=== PATIENT | male | born 1950 | race Caucasian/White ===

== ENCOUNTER 2018-01-04 20:16 | Observation (INO) | payer OTHER, MEDICARE ==
[2018-01-04 20:25] LABS: Glucose,Whole Blood 152 mg/dL (75-99)
[2018-01-04] MEDS ORDERED: SODIUM CHLORIDE 0.9% 500 ML 500 ML IV ONE ×2 (20:25→21:47)
--- NOTE | 2018-01-04 20:30 | ED ---
General Adult HPI - General Stated complaint: NVD,syncope Time Seen by Provider: 01/04/18 20:25 Source: patient, family, EMS, RN notes reviewed, old records reviewed Limitations: altered mental status - History of Present Illness Initial comments: 67-year-old male history of previous TIA, presenting with altered mental status. History is limited secondary to patient's initial presentation. History obtained from the who is at bedside and EMS transported the patient. He had an episode where he had nausea, vomited and became unresponsive. Patient does admit to taking cannabis oral prior to these symptoms. Except time course is not certain. EMS reports stable vitals during transport. Patient was not moving his arms or legs. There is no history of trauma. In addition to the episode of vomiting and was an episode of diarrhea. There was no preceding symptoms according to the patient's . - Related Data Home Medications Medication Instructions Recorded Confirmed Losartan [Cozaar] 12.5 mg PO DAILY 03/18/14 01/04/18 Metoprolol Succinate [Toprol XL] 12.5 mg PO DAILY 03/18/14 01/04/18 Mycophenolate Mofetil [Cellcept] 250 mg PO BID 03/18/14 01/04/18 Nitroglycerin Sl Tabs [Nitrostat] 0.4 mg PO Q5M PRN 03/18/14 01/04/18 Omeprazole [PriLOSEC] 40 mg PO DAILY 03/18/14 01/04/18 Atorvastatin [Lipitor] 80 mg PO HS 01/04/18 01/04/18 Benzoyl Peroxide 5% Lotion 1 applic TOPICAL DAILY 01/04/18 01/04/18 Cholecalciferol [Vitamin D3] 1,000 unit PO DAILY 01/04/18 01/04/18 Clindamycin Topical Soln 1 applic TOPICAL BID 01/04/18 01/04/18 [Cleocin-T Topical Soln] Cyclobenzaprine [Flexeril] 10 mg PO BID PRN 01/04/18 01/04/18 Dipyridamole-Aspirin 200-25 mg 1 cap PO BID 01/04/18 01/04/18 [Aggrenox] FLUoxetine HCL [PROzac] 20 mg PO DAILY 01/04/18 01/04/18 Gabapentin [Neurontin] 100 mg PO TID 01/04/18 01/04/18 Naproxen 500 mg PO BID 01/04/18 01/04/18 amLODIPine [Norvasc] 5 mg PO DAILY 01/04/18 01/04/18 sulfaSALAzine [Azulfidine] 1,000 mg PO BID 01/04/18 01/04/18 Allergies Allergy/AdvReac Type Severity Reaction Status Date / Time No Known Allergies Allergy Verified 01/04/18 21:20 Review of Systems ROS Statement: Those systems with pertinent positive or pertinent negative responses have been documented in the HPI. ROS Other: All systems not noted in ROS Statement are negative. Past Medical History Past Medical History: CVA/TIA, GERD/Reflux, Hyperlipidemia, Hypertension Additional Past Medical History / Comment(s): legally blind, lupus, autoimmune retinopathy, History of Any Multi-Drug Resistant Organisms: None Reported Past Surgical History: Tonsillectomy Additional Past Surgical History / Comment(s): eye and ear surgeries, nephrolithiasis, Past Psychological History: No Psychological Hx Reported Smoking Status: Never smoker Past Alcohol Use History: None Reported Past Drug Use History: Marijuana General Exam General appearance: alert Head exam: Present: atraumatic, normocephalic Eye exam: Present: PERRL (Bilateral pupils are reactive to light, patient has irregularities in the right pupil consistent with previous surgery) ENT exam: Present: mucous membranes moist Neck exam: Present: normal inspection. Absent: tenderness, meningismus Respiratory exam: Present: normal lung sounds bilaterally. Absent: respiratory distress, wheezes Cardiovascular Exam: Present: regular rate, normal rhythm GI/Abdominal exam: Present: soft. Absent: distended, tenderness, guarding Extremities exam: Present: normal inspection, normal capillary refill, other ( Bilateral radial pulses 2+, bilateral DP pulses 2+) Neurological exam: Present: alert, oriented X3 (x3 slow to respond), motor sensory deficit (Patient is not moving either upper extremity. He withdraws to pain in the bilateral lower extremities.) Skin exam: Present: warm, dry, intact, diaphoretic. Absent: cyanosis Course Vital Signs 01/04/18 01/04/18 01/04/18 20:21 21:14 22:05 Temperature 97.6 F Pulse Rate 73 67 71 Respiratory 18 18 19 Rate Blood Pressure 141/89 119/80 134/88 O2 Sat by Pulse 96 97 97 Oximetry 01/04/18 23:00 Temperature Pulse Rate 75 Respiratory 19 Rate Blood Pressure 123/68 O2 Sat by Pulse 98 Oximetry EKG Findings - EKG Comments: EKG Findings:: EKG: Normal sinus rhythm, ventricular rate of 69, LA interval 148 , QRS duration 92, QTC 426, no ST segment elevation, there is T-wave inversion in the inferior leads with no old for comparison. Medical Decision Making - Medical Decision Making 67-year-old male presenting with episode of near syncope. On initial presentation patient is diaphoretic, stable vitals, normal blood sugar. He is unable to move his arms or his legs secondary to profound weakness. Patient is mainly taken to CAT scan, CT is obtained which is negative for U and cranial hemorrhage or mass effect. Patient's symptoms resolve quickly while in the emergency department. He is asymptomatic after approximately 30 minutes to 1 hour. Patient has normal CBC, normal CMP. CT angiography is obtained of the brain which is negative for any acute occlusion or aneurysm. Symptoms concerning for syncope versus neurological,. He will be admitted with both cardiology and neurology on consult. - Lab Data Result diagrams: 01/04/18 20:33 01/04/18 20:33 Lab Results 01/04/18 01/04/18 01/04/18 Range/Units 20:23 20:33 20:33 WBC 9.2 (3.8-10.6) k/uL RBC 4.49 (4.30-5.90) m/uL Hgb 14.1 (13.0-17.5) gm/dL Hct 42.3 (39.0-53.0) % MCV 94.3 (80.0-100.0) fL MCH 31.5 (25.0-35.0) pg MCHC 33.4 (31.0-37.0) g/dL RDW 12.7 (11.5-15.5) % Plt Count 200 (150-450) k/uL Neutrophils % (Manual) 31 % Lymphocytes % (Manual) 65 % Monocytes % (Manual) 2 % Eosinophils % (Manual) 2 % Neutrophils # (Manual) 2.85 (1.3-7.7) k/uL Lymphocytes # (Manual) 5.98 H (1.0-4.8) k/uL Monocytes # (Manual) 0.18 (0-1.0) k/uL Eosinophils # (Manual) 0.18 (0-0.7) k/uL Nucleated RBCs 0 (0-0) /100 WBC Manual Slide Review Performed Large Platelets Present Polychromasia Present PT (9.0-12.0) sec INR (<1.2) APTT (22.0-30.0) sec Sodium (137-145) mmol/L Potassium (3.5-5.1) mmol/L Chloride (98-107) mmol/L Carbon Dioxide (22-30) mmol/L Anion Gap mmol/L BUN (9-20) mg/dL Creatinine (0.66-1.25) mg/dL Est GFR (CKD-EPI)AfAm (>60 ml/min/1.73 sqM) Est GFR (CKD-EPI)NonAf (>60 ml/min/1.73 sqM) Glucose (74-99) mg/dL POC Glucose (mg/dL) 152 H (75-99) mg/dL POC Glu Pizza Chef ID Vilma Manriquez Calcium (8.4-10.2) mg/dL Total Bilirubin (0.2-1.3) mg/dL AST (17-59) U/L ALT (21-72) U/L Alkaline Phosphatase (38-126) U/L Total Creatine Kinase 73 (55-170) U/L CK-MB (CK-2) 1.8 (0.0-2.4) ng/mL CK-MB (CK-2) Rel Index 2.5 Troponin I 0.018 (0.000-0.034) ng/mL Total Protein (6.3-8.2) g/dL Albumin (3.5-5.0) g/dL Urine Color Urine Appearance (Clear) Urine pH (5.0-8.0) Ur Specific [place] (1.001-1.035) Urine Protein (Negative) Urine Glucose (UA) (Negative) Urine Ketones (Negative) Urine Blood (Negative) Urine Nitrite (Negative) Urine Bilirubin (Negative) Urine Urobilinogen (<2.0) mg/dL Ur Leukocyte Esterase (Negative) Urine Opiates Screen (NotDetected) Ur Oxycodone Screen (NotDetected) Urine Methadone Screen (NotDetected) Ur Propoxyphene Screen (NotDetected) Ur Barbiturates Screen (NotDetected) U Tricyclic Antidepress (NotDetected) Ur Phencyclidine Scrn (NotDetected) Ur Amphetamines Screen (NotDetected) U Methamphetamines Scrn (NotDetected) U Benzodiazepines Scrn (NotDetected) Urine Cocaine Screen (NotDetected) U Marijuana (THC) Screen (NotDetected) 01/04/18 01/04/18 01/04/18 Range/Units 20:33 20:33 23:00 WBC (3.8-10.6) k/uL RBC (4.30-5.90) m/uL Hgb (13.0-17.5) gm/dL Hct (39.0-53.0) % MCV (80.0-100.0) fL MCH (25.0-35.0) pg MCHC (31.0-37.0) g/dL RDW (11.5-15.5) % Plt Count (150-450) k/uL Neutrophils % (Manual) % Lymphocytes % (Manual) % Monocytes % (Manual) % Eosinophils % (Manual) % Neutrophils # (Manual) (1.3-7.7) k/uL Lymphocytes # (Manual) (1.0-4.8) k/uL Monocytes # (Manual) (0-1.0) k/uL Eosinophils # (Manual) (0-0.7) k/uL Nucleated RBCs (0-0) /100 WBC Manual Slide Review Large Platelets Polychromasia PT 11.1 (9.0-12.0) sec INR 1.2 H (<1.2) APTT 21.1 L (22.0-30.0) sec Sodium 140 (137-145) mmol/L Potassium 4.7 (3.5-5.1) mmol/L Chloride 107 (98-107) mmol/L Carbon Dioxide 24 (22-30) mmol/L Anion Gap 9 mmol/L BUN 18 (9-20) mg/dL Creatinine 1.12 (0.66-1.25) mg/dL Est GFR (CKD-EPI)AfAm 78 (>60 ml/min/1.73 sqM) Est GFR (CKD-EPI)NonAf 67 (>60 ml/min/1.73 sqM) Glucose 126 H (74-99) mg/dL POC Glucose (mg/dL) (75-99) mg/dL POC Glu Pizza Chef ID Calcium 9.5 (8.4-10.2) mg/dL Total Bilirubin 0.8 (0.2-1.3) mg/dL AST 43 (17-59) U/L ALT 26 (21-72) U/L Alkaline Phosphatase 48 (38-126) U/L Total Creatine Kinase (55-170) U/L CK-MB (CK-2) (0.0-2.4) ng/mL CK-MB (CK-2) Rel Index Troponin I (0.000-0.034) ng/mL Total Protein 7.5 (6.3-8.2) g/dL Albumin 4.5 (3.5-5.0) g/dL Urine Color Yellow Urine Appearance Clear (Clear) Urine pH 5.5 (5.0-8.0) Ur Specific [place] >1.050 H (1.001-1.035) Urine Protein Trace H (Negative) Urine Glucose (UA) Negative (Negative) Urine Ketones Negative (Negative) Urine Blood Negative (Negative) Urine Nitrite Negative (Negative) Urine Bilirubin Negative (Negative) Urine Urobilinogen <2.0 (<2.0) mg/dL Ur Leukocyte Esterase Negative (Negative) Urine Opiates Screen Not Detected (NotDetected) Ur Oxycodone Screen Not Detected (NotDetected) Urine Methadone Screen Not Detected (NotDetected) Ur Propoxyphene Screen Not Detected (NotDetected) Ur Barbiturates Screen Not Detected (NotDetected) U Tricyclic Antidepress Not Detected (NotDetected) Ur Phencyclidine Scrn Not Detected (NotDetected) Ur Amphetamines Screen Not Detected (NotDetected) U Methamphetamines Scrn Not Detected (NotDetected) U Benzodiazepines Scrn Detected H (NotDetected) Urine Cocaine Screen Not Detected (NotDetected) U Marijuana (THC) Screen Detected H (NotDetected) Disposition Clinical Impression: Transient cerebral ischemia, Syncope Disposition: ADMITTED IP TO THIS [facility] Condition: Stable Is patient prescribed a controlled substance at d/c from ED?: No Decision to Admit Reason: Admit from EC Decision Date: 01/05/18 Decision Time: 23:30
[2018-01-04 20:48] LABS: HCT 42.3 % (39.0-53.0); HGB 14.1 gm/dL (13.0-17.5); MCH 31.5 pg (25.0-35.0); MCHC 33.4 g/dL (31.0-37.0); MCV 94.3 fL (80.0-100.0); Mean Platelet Volume 7.4; Platelet Count 200 k/uL (150-450); RBC 4.49 m/uL (4.30-5.90); RDW 12.7 % (11.5-15.5); WBC 9.2 k/uL (3.8-10.6)
[2018-01-04 21:03] LABS: INR 1.2 (<1.2); Prothrombin Time 11.1 sec (9.0-12.0)
[2018-01-04 21:07] LABS: Partial Thromboplastin Time 21.1 sec (22.0-30.0)
[2018-01-04 21:25] LABS: Calcium 9.5 mg/dL (8.4-10.2); Total Bilirubin 0.8 mg/dL (0.2-1.3)
[2018-01-04 21:29] LABS: Creatine Kinase MB 1.8 ng/mL (0.0-2.4)
--- NOTE | 2018-01-04 21:32 | CT ---
EXAMINATION TYPE: CT brain wo con DATE OF EXAM: 01/04/2018 COMPARISON: 11/19/2013 HISTORY: Altered mental status. CT DLP: 1688.4 mGycm Automated exposure control for dose reduction was used. FINDINGS: There is mild cerebral cortical atrophy. There is no mass effect nor midline shift. There is no sign of intracranial hemorrhage. The calvarium is intact. There is patchy hypodensity in the periventricul ar white matter. IMPRESSION: CEREBRAL ATROPHY. CHRONIC SMALL VESSEL ISCHEMIA. THERE IS PROGRESSION OF THE WHITE MATTER DISEASE COM PARED TO OLD EXAM.
[2018-01-04 21:37] LABS: Eosinophils # (M) 0.18 k/uL (0-0.7); Lymphocytes # (M) 5.98 k/uL (1.0-4.8); Monocytes # (M) 0.18 k/uL (0-1.0); Neutrophils # (M) 2.85 k/uL (1.3-7.7); Neutrophils % (M) 31 %; Nucleated Red Blood Cells 0 /100 WBC (0-0); Total Cells Counted 100
[2018-01-04 21:38] LABS: Albumin 4.5 g/dL (3.5-5.0); Large Platelets Present; Polychromasia Present; Potassium 4.7 mmol/L (3.5-5.1); Total Protein 7.5 g/dL (6.3-8.2)
--- NOTE | 2018-01-04 21:40 | XR ---
EXAMINATION TYPE: XR chest 1V portable DATE OF EXAM: 01/04/2018 COMPARISON: 04/25/2012 HISTORY: Syncope nausea TECHNIQUE: Single frontal view of the chest is obtained. FINDINGS: Heart is normal. There is increased right paratracheal density compared to old exam. There is no pleural effusion. Thoracic aorta is atheromatous. IMPRESSION: Possible new right paratracheal infiltrate compared to old exam. Recommend PA and latera l views for further evaluation.
[2018-01-04 21:44] LABS: Troponin I 0.018 ng/mL (0.000-0.034)
[2018-01-04] MEDS ORDERED: ASPIRIN 325 MG TAB PO STA (21:47)
--- NOTE | 2018-01-04 22:47 | CT ---
EXAMINATION TYPE: CT angio head neck DATE OF EXAM: 01/04/2018 HISTORY: Episode of nausea, dizziness and lightheaded. COMPARISON: None CT DLP: 499.1 mGycm. Automated Exposure Control for Dose Reduction was Utilized. TECHNIQUE: CTA scan of the neck is performed with IV Contrast, patient injected with 65ml mL of Isov ue 370, axial images are obtained, coronal and sagittal reformatted images are reviewed. Three-D edmund nstructed images are created on an independent workstation and reviewed. FINDINGS: There is normal branching pattern of the great vessels on the aortic arch. Thyroid gland appears norm al. Trachea appears normal. There is normal contrast opacification of the vertebral arteries. There i s normal contrast opacification of the common internal and external carotid arteries. There is normal contrast opacification of the vertebral arteries. There is no evidence of carotid or vertebral artery aneurysm or dissection. The carotid artery bifurc ations appear widely patent. There is arterial flow in the vertebrobasilar artery system. There is arterial flow in the anterior m iddle and posterior cerebral arteries. There is arterial flow in the external carotid arteries bilate rally. There is normal contrast opacification of the venous sinuses. There is no intracranial mass ef fect. I see no intracranial aneurysm or neovascularity. The left posterior cerebral artery appears to fill entirely through the left posterior communicating artery. There is no evidence of intracranial arterial stenosis. There is some thickened styloid process that is fused with the hyoid bone. IMPRESSION: Negative CT angiogram of the neck. Negative CT angiogram of the brain. 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
[2018-01-04] MEDS: SODIUM CHLORIDE 0.9% 1,000 ML IV SCH (23:30)
[2018-01-04 23:34] LABS: Appearance,Urine Clear (Clear); Bilirubin,Urine Negative (Negative); Blood,Urine Negative (Negative); Color,Urine Yellow; Glucose,Urine (UA) Negative (Negative); Ketones,Urine Negative (Negative); Leukocyte Esterase,Urine Negative (Negative); Nitrite,Urine Negative (Negative); PH, Urine 5.5 (5.0-8.0); Protein,Urine Trace (Negative); Urobilinogen,Urine <2.0 mg/dL (<2.0)
[2018-01-04] MEDS ORDERED: NALOXONE 0.4 MG/ML 1 ML VIAL IV PRN (23:49)
[2018-01-04] MEDS ORDERED: ACETAMINOPHEN TAB 325 MG TAB PO PRN (23:49)
[2018-01-04 23:51] LABS: Amphetamine Screen,Urine Not Detected (NotDetected); Barbiturate Screen,Urine Not Detected (NotDetected); Benzodiazepines Screen,Urine Detected (NotDetected); Cocaine Screen,Urine Not Detected (NotDetected); Methadone Screen, Urine Not Detected (NotDetected); Opiate Screen,Urine Not Detected (NotDetected); Oxycodone Screen, Urine Not Detected (NotDetected); Phencyclidine Screen,Urine Not Detected (NotDetected); Tricyclic Antidepressant,Urine Not Detected (NotDetected); Urn Cannabinoid Scrn Detected (NotDetected)
[2018-01-05 01:42] LABS: Specific Gravity,Urine >1.050 (1.001-1.035)
[2018-01-05 02:37] LABS: Glucose,Whole Blood 156 mg/dL (75-99)
[2018-01-05 03:58] VITALS: BMI 28.0
[2018-01-05 06:51] LABS: Glucose,Whole Blood 139 mg/dL (75-99)
--- NOTE | 2018-01-05 09:47 | P.CRDCN ---
History of Present Illness Consult date: 01/05/18 Requesting physician: Rivera Ruiz Consult reason: sycope Chief complaint: Syncope. History of present illness: This is a pleasant 67-year-old gentleman with prior history of seizures on only one occasion, prior history of TIA, hypertension, hyperlipidemia, borderline diabetes, GERD, he is legally blind, has history of autoimmune or adenopathy, denies nicotine dependence, but does smoke marijuana. He presented to the hospital on this occasion following a syncopal episode. According to the patient, he states that he was putting some wood in his fire, he states that his grandson came over to visit him. He felt a little dizzy and lightheaded, and had an episode of what he described as severe nausea and vomiting, shortly thereafter he became somewhat unresponsive. He states that he did not pass out completely, he could hear people but was very slow to answer. Just prior to this happening patient does admit to taking cannabis. On EMS arrival, patient was hemodynamically stable, extremely weak, he did not lose bowel or bladder function. He denies any chest discomfort or palpitations prior to this episode happening but does state that on occasion he notices palpitations and gets intermittent sharp chest pains at times. CAT scan revealed cerebral atrophy, chronic small vessel ischemia. There is progression of white matter disease as compared with old exam. Chest x-ray shows possible new right paratracheal infiltrate as compared with prior exam. 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 EKG shows normal sinus rhythm with no acute changes. Blood pressure 140/80 with a heart rate in the 70s, 96% on room air. White blood cell count 9.2, hemoglobin 14.1, platelet count 200. Sodium 140, potassium 4.7, BUN 18, creatinine 1.1. Troponin 0.018, 0.012. At the time of my examination this morning, patient denies any dizziness or lightheadedness, no chest discomfort. Past Medical History Past Medical History: CVA/TIA, GERD/Reflux, Hyperlipidemia, Hypertension Additional Past Medical History / Comment(s): legally blind, lupus, autoimmune retinopathy ( retinitis) History of Any Multi-Drug Resistant Organisms: None Reported Past Surgical History: Orthopedic Surgery, Tonsillectomy Additional Past Surgical History / Comment(s): eye and ear surgeries, nephrolithiasis, deviated septum sx; Left knee meniscus; broke 3 fingers on left hand Past Anesthesia/Blood Transfusion Reactions: No Reported Reaction Past Psychological History: Anxiety Smoking Status: Former smoker Past Alcohol Use History: Occasional Past Drug Use History: Marijuana Medications and Allergies Home Medications Medication Instructions Recorded Confirmed Type Losartan [Cozaar] 12.5 mg PO DAILY 03/18/14 01/04/18 History Metoprolol Succinate [Toprol XL] 12.5 mg PO DAILY 03/18/14 01/04/18 History Mycophenolate Mofetil [Cellcept] 250 mg PO BID 03/18/14 01/04/18 History Nitroglycerin Sl Tabs [Nitrostat] 0.4 mg PO Q5M PRN 03/18/14 01/04/18 History Omeprazole [PriLOSEC] 40 mg PO DAILY 03/18/14 01/04/18 History Atorvastatin [Lipitor] 80 mg PO HS 01/04/18 01/04/18 History Benzoyl Peroxide 5% Lotion 1 applic TOPICAL DAILY 01/04/18 01/04/18 History Cholecalciferol [Vitamin D3] 1,000 unit PO DAILY 01/04/18 01/04/18 History Clindamycin Topical Soln 1 applic TOPICAL BID 01/04/18 01/04/18 History [Cleocin-T Topical Soln] Cyclobenzaprine [Flexeril] 10 mg PO BID PRN 01/04/18 01/04/18 History Dipyridamole-Aspirin 200-25 mg 1 cap PO BID 01/04/18 01/04/18 History [Aggrenox] FLUoxetine HCL [PROzac] 20 mg PO DAILY 01/04/18 01/04/18 History Gabapentin [Neurontin] 100 mg PO TID 01/04/18 01/04/18 History Naproxen 500 mg PO BID 01/04/18 01/04/18 History amLODIPine [Norvasc] 5 mg PO DAILY 01/04/18 01/04/18 History sulfaSALAzine [Azulfidine] 1,000 mg PO BID 01/04/18 01/04/18 History Allergies Allergy/AdvReac Type Severity Reaction Status Date / Time No Known Allergies Allergy Verified 01/04/18 21:20 Physical Exam Vitals: Vital Signs Temp Pulse Pulse Resp BP BP Pulse Ox 11/01/18 04:00 97.8 F 61 16 138/85 96 01/05/18 03:00 98.1 F 63 17 133/80 91 L 01/04/18 23:00 75 19 123/68 98 01/04/18 22:05 71 19 134/88 97 01/04/18 21:14 67 18 119/80 97 01/04/18 20:21 97.6 F 73 18 141/89 96 Intake and Output 01/04/18 01/05/18 01/05/18 22:59 06:59 14:59 Intake Total 150 Balance 150 Intake: Intake, IV Titration 150 Amount Sodium Chloride 0.9% 1, 150 000 ml @ 75 mls/hr IV . [id number] [facility] Rx#:[id number] Other: Weight 90.718 kg 91.4 kg PHYSICAL EXAMINATION: GENERAL: 67-year-old gentleman in no acute distress at the time of my examination HEENT: Head is atraumatic, normocephalic. Pupils equal, round. Patient is legally blind. Sclera anicteric. Conjunctiva are clear. Mucous membranes of the mouth are moist. Neck is supple. There is no elevated jugular venous pressure. No carotid bruit is heard. HEART EXAMINATION: Heart S1, S2 normal. No murmur or gallop heard. CHEST EXAMINATION: Lungs are clear to auscultation and precussion. No chest wall tenderness is noted on palpation or with deep breathing. ABDOMEN: Soft, nontender. Bowel sounds are heard. No organomegaly noted. EXTREMITIES: 2+ peripheral pulses with no evidence of peripheral edema and no calf tenderness noted. NEUROLOGIC patient is awake, alert and oriented 3 . Results 01/04/18 20:33 01/04/18 20:33 Cardiac Enzymes 01/04/18 01/04/18 01/04/18 Range/Units 20:33 20:33 23:20 AST 43 (17-59) U/L CK-MB (CK-2) 1.8 (0.0-2.4) ng/mL Troponin I 0.018 <0.012 (0.000-0.034) ng/mL Coagulation 01/04/18 Range/Units 20:33 PT 11.1 (9.0-12.0) sec APTT 21.1 L (22.0-30.0) sec CBC 01/04/18 Range/Units 20:33 WBC 9.2 (3.8-10.6) k/uL RBC 4.49 (4.30-5.90) m/uL Hgb 14.1 (13.0-17.5) gm/dL Hct 42.3 (39.0-53.0) % Plt Count 200 (150-450) k/uL Comprehensive Metabolic Panel 01/04/18 Range/Units 20:33 Sodium 140 (137-145) mmol/L Potassium 4.7 (3.5-5.1) mmol/L Chloride 107 (98-107) mmol/L Carbon Dioxide 24 (22-30) mmol/L BUN 18 (9-20) mg/dL Creatinine 1.12 (0.66-1.25) mg/dL Glucose 126 H (74-99) mg/dL Calcium 9.5 (8.4-10.2) mg/dL AST 43 (17-59) U/L ALT 26 (21-72) U/L Alkaline Phosphatase 48 (38-126) U/L Total Protein 7.5 (6.3-8.2) g/dL Albumin 4.5 (3.5-5.0) g/dL Current Medications Generic Name Dose Route Start Last Admin Trade Name Freq PRN Reason Stop Dose Admin Acetaminophen 650 mg 01/04/18 23:49 Tylenol Tab PO Q6HR PRN Mild Pain or Fever > 100.5 Aspirin 325 mg 01/05/18 09:00 Aspirin PO DAILY AMINAH Sodium Chloride 1,000 mls @ 75 mls/hr 01/04/18 22:15 01/04/18 23:30 Saline 0.9% IV 75 mls/hr .[id number] AMINAH Administration Naloxone HCl 0.2 mg 01/04/18 23:49 Narcan IV Q2M PRN Opioid Reversal Intake and Output 01/04/18 01/05/18 01/05/18 22:59 06:59 14:59 Intake Total 150 Balance 150 Intake: Intake, IV Titration 150 Amount Sodium Chloride 0.9% 1, 150 000 ml @ 75 mls/hr IV . [id number] AMINAH Rx#:[id number] Other: Weight 90.718 kg 91.4 kg 01/04/18 20:33 01/04/18 20:33 EKG Interpretations (text) EKG shows normal sinus rhythm with no acute changes. Assessment and Plan Plan: Assessment and plan #1 syncope, rule out cardiac causes, possible TIA #2 history of prior TIA #3 hypertension #4 hyperlipidemia #5 and legal blindness #6 autoimmune retinopathy Plan We will obtain an echocardiogram with Doppler study. We will monitor orthostatic heart rate and blood pressure every shift. Continue to monitor for any tachycardia or bradycardia arrhythmias. Further recommendations to follow. DNP note has been reviewed, I agree with a documented findings and plan of care. Patient was seen and examined.
[2018-01-05] MEDS: ASPIRIN 325 MG TAB PO SCH (10:23)
[2018-01-05 11:34] LABS: Glucose,Whole Blood 119 mg/dL (75-99)
--- NOTE | 2018-01-05 11:49 | ECHOF ---
Referral Reason:syncope MEASUREMENTS -------- HEIGHT: 180.3 cm WEIGHT: 91.2 kg BP: 138/85 IVSd: 1.3 cm (0.6 - 1.1) LVIDd: 4.2 cm (3.9 - 5.3) LVPWd: 1.3 cm (0.6 - 1.1) IVSs: 1.6 cm LVIDs: 3.1 cm LVPWs: 1.5 cm LAESV Index (A-L): 30.11 ml/m Ao Diam: 3.7 cm (2.0 - 3.7) AV Cusp: 2.1 cm (1.5 - 2.6) LA Diam: 2.5 cm (2.7 - 3.8) EPSS: 0.7 cm MV E Gomez: 0.85 m/s MV DecT: 230 ms MV A Gomez: 0.84 m/s MV E/A Ratio: 1.01 RAP: 5.00 mmHg RVSP: 8.89 mmHg MV EF SLOPE: 113.11 mm/s (70 - 150) MV EXCURSION: 1.84 cm (> 18.000) FINDINGS -------- Sinus rhythm. This was a technically adequate study. The left ventricular size is normal. There is mild concentric left ventricular hypertrophy. Overa ll left ventricular systolic function is normal with, an EF between 55 - 60 %. The right ventricle is normal in size and function. LA is midly dilated 29-33ml/m2. The right atrium is normal in size. Aortic valve is trileaflet and is mildly thickened. There is no evidence of aortic regurgitation. There is no evidence of aortic stenosis. Mild mitral annular calcification present. Mild mitral regurgitation is present. Trace tricuspid regurgitation present. Right ventricular systolic pressure is normal at < 35 mmHg. There is no evidence of pulmonary hypertension. Trace/mild (physiologic) pulmonic regurgitation. The aortic root size is normal. Normal inferior vena cava with normal inspiratory collapse consistent with estimated right atrial pre ssure of 5 mmHg. There is no pericardial effusion. CONCLUSIONS -------- 1. Sinus rhythm. 2. This was a technically adequate study. 3. The left ventricular size is normal. 4. There is mild concentric left ventricular hypertrophy. 5. Overall left ventricular systolic function is normal with, an EF between 55 - 60 %. 6. LA is midly dilated 29-33ml/m2. 7. Aortic valve is trileaflet and is mildly thickened. 8. Mild mitral annular calcification present. 9. Mild mitral regurgitation is present. 10. Trace tricuspid regurgitation present. 11. Right ventricular systolic pressure is normal at < 35 mmHg. 12. There is no evidence of pulmonary hypertension. 13. Trace/mild (physiologic) pulmonic regurgitation. 14. The aortic root size is normal. 15. There is no pericardial effusion. ANODIZING LINE OPERATOR: Doni Edouard RDCS
[2018-01-05 12:56] LABS: Hemoglobin A1C 6.6 % (4.0-6.0)
[2018-01-05] MEDS: SODIUM CHLORIDE 0.9% 1,000 ML IV SCH (14:20)
[2018-01-05 15:00] LABS: Reactive Lymphocytes Present
[2018-01-05 16:27] LABS: Glucose,Whole Blood 179 mg/dL (75-99)
[2018-01-05] MEDS ORDERED: CYCLOBENZAPRINE 10 MG TAB PO PRN (16:42)
[2018-01-05] MEDS ORDERED: amLODIPine 5 MG TAB PO SCH (16:45)
[2018-01-05] MEDS: METOPROLOL SUCCINATE (ER) 25 MG TAB.ER.24H PO SCH (17:14)
[2018-01-05] MEDS: ATORVASTATIN 80 MG TAB PO SCH (20:57)
[2018-01-05] MEDS: GABAPENTIN 100 MG CAP PO SCH (20:57)
[2018-01-05] MEDS: FAMOTIDINE 20 MG/2 ML VIAL IV SCH (20:57)
[2018-01-05] MEDS: HEPARIN SODIUM,PORCINE 5,000 UNIT/ML 1 ML VIAL SQ SCH (20:57)
[2018-01-05] MEDS ORDERED: hydrALAZINE HCL 25 MG TAB PO PRN (21:00)
[2018-01-05 21:01] LABS: Glucose,Whole Blood 89 mg/dL (75-99)
[2018-01-05] MEDS: sulfaSALAzine 500 MG TAB PO SCH (21:01)
[2018-01-05] MEDS: DIPYRIDAMOLE-ASPIRIN 200-25 MG 1 EACH CPMP.12HR PO SCH (21:02)
[2018-01-05] MEDS: MYCOPHENOLATE MOFETIL 250 MG CAP PO SCH (21:02)
--- NOTE | 2018-01-05 21:25 | P.CNNES ---
History of Present Illness Consult date: 01/05/18 History of Present Illness: The patient is a 67-year-old left-handed white male who is a [place] vet who has history of recurrent episodes of syncope.'s has a past history of seizure. He states his seizure occurred in 2007. At that time he was seeing a neurologist and was placed on Lantus and which she didn't tolerate and then switched to Keppra which he took for 2 years and then stopped. Has not had a seizure in at least 6 years. He has had episodes however of syncope syncope. Had at least 3 major episodes over the last 5 years. Weeks ago he had an episode where he passed out at home he did not seek medical attention at the time. This admission he had an episode where he vomited and then almost passed out" was unresponsive. Was called and he was brought to the emergency room. No seizure was reported. The patient reports episodes of sudden jerk of his hand. Skin occur spontaneously randomly. 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 The patient presented to the emergency room with syncope nausea vomiting and altered mental status. The patient reports there is no change in his appetite or medications. According to the record the patient didn 't take cannabis prior to the nausea and vomiting. Review of Systems Constitutional: Denies chills, Denies fever Eyes: denies blurred vision, denies pain Cardiovascular: Reports as per HPI Respiratory: Reports as per HPI Gastrointestinal: Denies abdominal pain, Denies diarrhea, Denies nausea, Denies vomiting Musculoskeletal: Denies myalgias Integumentary: Reports as per HPI Neurological: Denies numbness, Denies weakness Psychiatric: Denies anxiety, Denies depression Endocrine: Denies fatigue, Denies weight change Past Medical History Past Medical History: CVA/TIA, GERD/Reflux, Hyperlipidemia, Hypertension Additional Past Medical History / Comment(s): legally blind, lupus, autoimmune retinopathy ( retinitis) History of Any Multi-Drug Resistant Organisms: None Reported Past Surgical History: Orthopedic Surgery, Tonsillectomy Additional Past Surgical History / Comment(s): eye and ear surgeries, nephrolithiasis, deviated septum sx; Left knee meniscus; broke 3 fingers on left hand Past Anesthesia/Blood Transfusion Reactions: No Reported Reaction Past Psychological History: Anxiety Smoking Status: Former smoker Past Alcohol Use History: Occasional Past Drug Use History: Marijuana Medications and Allergies Home Medications Medication Instructions Recorded Confirmed Type Losartan [Cozaar] 12.5 mg PO DAILY 03/18/14 01/04/18 History Metoprolol Succinate [Toprol XL] 12.5 mg PO DAILY 03/18/14 01/04/18 History Mycophenolate Mofetil [Cellcept] 250 mg PO BID 03/18/14 01/04/18 History Nitroglycerin Sl Tabs [Nitrostat] 0.4 mg PO Q5M PRN 03/18/14 01/04/18 History Omeprazole [PriLOSEC] 40 mg PO DAILY 03/18/14 01/04/18 History Atorvastatin [Lipitor] 80 mg PO HS 01/04/18 01/04/18 History Benzoyl Peroxide 5% Lotion 1 applic TOPICAL DAILY 01/04/18 01/04/18 History Cholecalciferol [Vitamin D3] 1,000 unit PO DAILY 01/04/18 01/04/18 History Clindamycin Topical Soln 1 applic TOPICAL BID 01/04/18 01/04/18 History [Cleocin-T Topical Soln] Cyclobenzaprine [Flexeril] 10 mg PO BID PRN 01/04/18 01/04/18 History Dipyridamole-Aspirin 200-25 mg 1 cap PO BID 01/04/18 01/04/18 History [Aggrenox] FLUoxetine HCL [PROzac] 20 mg PO DAILY 01/04/18 01/04/18 History Gabapentin [Neurontin] 100 mg PO TID 01/04/18 01/04/18 History Naproxen 500 mg PO BID 01/04/18 01/04/18 History amLODIPine [Norvasc] 5 mg PO DAILY 01/04/18 01/04/18 History sulfaSALAzine [Azulfidine] 1,000 mg PO BID 01/04/18 01/04/18 History Allergies Allergy/AdvReac Type Severity Reaction Status Date / Time No Known Allergies Allergy Verified 01/04/18 21:20 Physical Examination - Vital Signs Vital Signs: Vital Signs Temp Pulse Pulse Pulse Pulse Pulse Resp 01/05/18 16:15 97.7 F 66 18 01/05/18 11:30 98.3 F 58 L 18 01/05/18 10:58 62 62 62 01/05/18 08:45 98.2 F 64 18 01/05/18 04:00 97.8 F 61 16 01/05/18 03:00 98.1 F 63 17 01/04/18 23:00 75 19 01/04/18 22:05 71 19 01/04/18 21:14 67 18 BP BP BP BP BP Pulse Ox 01/05/18 16:15 193/93 01/05/18 11:30 156/86 01/05/18 10:58 160/89 190/97 175/89 01/05/18 08:45 159/85 01/05/18 04:00 138/85 96 01/05/18 03:00 133/80 91 L 01/04/18 23:00 123/68 98 01/04/18 22:05 134/88 97 01/04/18 21:14 119/80 97 Intake and Output 01/05/18 01/05/18 01/05/18 06:59 14:59 22:59 Intake Total 150 600 240 Balance 150 600 240 Intake: Intake, IV Titration 150 Amount Sodium Chloride 0.9% 1, 150 000 ml @ 75 mls/hr IV . [id number] [facility] Rx#:[id number] Oral 600 240 Other: Weight 91.4 kg - Constitutional General appearance: average body habitus, cooperative - EENT EENT: PERRL - Respiratory Respiratory: lungs clear - Cardiovascular Cardiovascular: regular rate - Neurologic Neurologic examination: Mental status: He was awake alert oriented. His speech was fluent. There is no a aphasia or dysarthria. Cranial II through XII: Mostly intact next Motor examination: No focal weakness Sensory examination: Intact to light touch Deep tendon reflexes: Symmetric Results - Laboratory Findings CBC and BMP: 01/04/18 20:33 01/04/18 20:33 Abnormal Lab Findings: Abnormal Labs 01/04/18 01/04/18 01/04/18 20:23 20:33 20:33 Lymphocytes # (Manual) 5.98 H INR APTT Glucose 126 H POC Glucose (mg/dL) 152 H Hemoglobin A1c Ur Specific [place] Urine Protein U Benzodiazepines Scrn U Marijuana (THC) Screen 01/04/18 01/04/18 01/05/18 20:33 23:00 02:31 Lymphocytes # (Manual) INR 1.2 H APTT 21.1 L Glucose POC Glucose (mg/dL) 156 H Hemoglobin A1c Ur Specific [place] >1.050 H Urine Protein Trace H U Benzodiazepines Scrn Detected H U Marijuana (THC) Screen Detected H 01/05/18 01/05/18 01/05/18 05:14 06:49 11:32 Lymphocytes # (Manual) INR APTT Glucose POC Glucose (mg/dL) 139 H 119 H Hemoglobin A1c 6.6 H Ur Specific [place] Urine Protein U Benzodiazepines Scrn U Marijuana (THC) Screen 01/05/18 16:25 Lymphocytes # (Manual) INR APTT Glucose POC Glucose (mg/dL) 179 H Hemoglobin A1c Ur Specific [place] Urine Protein U Benzodiazepines Scrn U Marijuana (THC) Screen Assessment and Plan (1) Recurrent syncope Current Visit: Yes Status: Acute SNOMED Code(s): 308351988 (2) History of seizure Current Visit: Yes Status: Acute SNOMED Code(s): 771609979 Plan: The patient is a 67-year-old man with remote history of seizure disorder who presents with recurrent syncopal events. The patient has had several syncopal events over the past few years and 2 in the last 2 weeks. The patient had a CT of the brain which showed progression of white matter disease over the last 4 years. Recommend MRI scan of the brain and recommend EEG.
[2018-01-06] MEDS: SODIUM CHLORIDE 0.9% 1,000 ML IV SCH ×2 (02:23→20:43)
[2018-01-06 05:59] LABS: Glucose,Whole Blood 118 mg/dL (75-99)
[2018-01-06 06:07] LABS: Basophils % (A) 1 %; Eosinophils # (A) 0.2 k/uL (0-0.7); Eosinophils % (A) 3 %; HGB 13.6 gm/dL (13.0-17.5); Lymphocytes # (A) 3.2 k/uL (1.0-4.8); Lymphocytes % (A) 45 %; MCHC 33.1 g/dL (31.0-37.0); MCV 93.6 fL (80.0-100.0); Mean Platelet Volume 7.7; Monocytes # (A) 0.3 k/uL (0-1.0); Monocytes % (A) 5 %; Neutrophils # (A) 3.1 k/uL (1.3-7.7); Neutrophils % (A) 44 %; Platelet Count 170 k/uL (150-450); RBC 4.37 m/uL (4.30-5.90); RDW 12.6 % (11.5-15.5); WBC 7.1 k/uL (3.8-10.6)
[2018-01-06 06:24] LABS: Anion Gap 7 mmol/L; Blood Urea Nitrogen 14 mg/dL (9-20); Calcium 9.1 mg/dL (8.4-10.2); Carbon Dioxide 24 mmol/L (22-30); Chloride 108 mmol/L (98-107); Glucose 101 mg/dL (74-99); Potassium 4.2 mmol/L (3.5-5.1); Sodium 139 mmol/L (137-145)
[2018-01-06] MEDS: ASPIRIN 325 MG TAB PO SCH (08:52)
[2018-01-06] MEDS: GABAPENTIN 100 MG CAP PO SCH ×3 (08:52→20:42)
[2018-01-06] MEDS: METOPROLOL SUCCINATE (ER) 25 MG TAB.ER.24H PO SCH (08:53)
[2018-01-06] MEDS: CHOLECALCIFEROL 1,000 UNIT TAB PO SCH (08:53)
[2018-01-06] MEDS: amLODIPine 10 MG TAB PO SCH (08:53)
[2018-01-06] MEDS: FLUoxetine HCL 20 MG CAP PO SCH (08:53)
[2018-01-06] MEDS: FAMOTIDINE 20 MG/2 ML VIAL IV SCH (08:53)
[2018-01-06] MEDS: HEPARIN SODIUM,PORCINE 5,000 UNIT/ML 1 ML VIAL SQ SCH ×2 (08:53→20:43)
[2018-01-06] MEDS: sulfaSALAzine 500 MG TAB PO SCH ×2 (08:56→21:53)
[2018-01-06] MEDS: MYCOPHENOLATE MOFETIL 250 MG CAP PO SCH ×2 (08:56→21:54)
[2018-01-06] MEDS: DIPYRIDAMOLE-ASPIRIN 200-25 MG 1 EACH CPMP.12HR PO SCH ×2 (08:56→21:54)
[2018-01-06] MEDS ORDERED: LOSARTAN 25 MG TAB PO SCH (09:00)
[2018-01-06 11:38] LABS: Glucose,Whole Blood 138 mg/dL (75-99)
--- NOTE | 2018-01-06 13:18 | MR ---
EXAMINATION TYPE: MR brain wo/w con DATE OF EXAM: 01/06/2018 COMPARISON: 01/04/2018 HISTORY: Stroke CONTRAST: Performed utilizing 9 mL intravenous Gadavist gadolinium contrast. TECHNIQUE: Multiplanar, multiecho imaging on a 3.0 Chanell magnet is performed through the brain. Stud y is not performed within 24 hours of arrival to the hospital. The craniovertebral junction is normal. The pituitary is normal. Diffusion-weighted imaging is performed. No abnormal hyperintensity is present to suggest an acute i ntracranial infarct or acute ischemic change. Periventricular white matter changes are present, likely on the basis of chronic ischemic changes. Th is is greater in the white matter adjacent to the posterior horns lateral ventricles. Subcortical whi te matter changes are present as well. Ventricles and sulci are prominent for the patient age. No temporal horn dilatation is evident althou gh the temporal horns are at the upper limits for normal for size. Extra-axial spaces are somewhat pr ominent. No abnormal enhancement is evident. IMPRESSIONS: 1. Atrophy with periventricular white matter ischemic changes. 2. No acute cranial process identified.
--- NOTE | 2018-01-06 13:27 | P.PN ---
Subjective Progress Note Date: 01/06/18 This is a pleasant 67-year-old gentleman with prior history of seizures on only one occasion, prior history of TIA, hypertension, hyperlipidemia, borderline diabetes, GERD, he is legally blind, has history of autoimmune retinopathy, denies nicotine dependence, but does smoke marijuana. He presented to the hospital on this occasion following a syncopal episode. According to the patient, he states that he was putting some wood in his fire, he states that his grandson came over to visit him. He felt a little dizzy and lightheaded, and had an episode of what he described as severe nausea and vomiting, shortly thereafter he became somewhat unresponsive. He states that he did not pass out completely, he could hear people but was very slow to answer. Just prior to this happening patient does admit to taking cannabis. On EMS arrival, patient was hemodynamically stable, extremely weak, he did not lose bowel or bladder function. He denies any chest discomfort or palpitations prior to this episode happening but does state that on occasion he notices palpitations and gets intermittent sharp chest pains at times. CAT scan revealed cerebral atrophy, chronic small vessel ischemia. There is progression of white matter disease as compared with old exam. Chest x-ray shows possible new right paratracheal infiltrate as compared with prior exam. 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 MRI showed no acute cranial process. EKG shows normal sinus rhythm with no acute changes. Echo showed normal LV systolic function with EF 55-60% with mild MR. No further episodes of syncope. Blood pressure is poorly controlled. Objective - Vital Signs Vital signs: Vital Signs Temp 98.1 F 01/06/18 11:49 Pulse 62 01/06/18 11:49 Resp 20 01/06/18 11:49 BP 128/82 01/06/18 11:49 Pulse Ox 97 01/06/18 11:49 Intake & Output 01/05/18 01/06/18 01/06/18 18:59 06:59 18:59 Intake Total 840 375 180 Output Total 450 Balance 840 375 -270 Weight 92.2 kg Intake: Intake, IV Titration 375 Amount Sodium Chloride 0.9% 1, 375 000 ml @ 75 mls/hr IV . [id number] [facility] Rx#:[id number] Oral 840 180 Output: Urine 450 Other: # Voids 1 - Exam PHYSICAL EXAMINATION: HEENT: Head is atraumatic, normocephalic. Pupils equal, round. She is legally blind Neck is supple. There is no elevated jugular venous pressure. HEART EXAMINATION: Heart sounds regular, S1 and S2 normal. No murmur or gallop heard. CHEST EXAMINATION: Lungs are clear to auscultation and precussion. No chest wall tenderness is noted on palpation or with deep breathing. ABDOMEN: Soft, nontender. Bowel sounds are heard. No organomegaly noted. EXTREMITIES: 2+ peripheral pulses with no evidence of peripheral edema and no calf tenderness noted. NEUROLOGIC patient is awake, alert and oriented x3. . - Labs CBC & Chem 7: 01/06/18 05:18 01/06/18 05:18 Labs: Abnormal Lab Results - Last 24 Hours (Table) 01/05/18 01/06/18 01/06/18 Range/Units 16:25 05:18 05:54 Chloride 108 H (98-107) mmol/L Glucose 101 H (74-99) mg/dL POC Glucose (mg/dL) 179 H 118 H (75-99) mg/dL 01/06/18 Range/Units 11:35 Chloride (98-107) mmol/L Glucose (74-99) mg/dL POC Glucose (mg/dL) 138 H (75-99) mg/dL Assessment and Plan Assessment: #1 syncope, rule out cardiac causes, possible TIA #2 history of prior TIA #3 hypertension #4 hyperlipidemia #5 legal blindness #6 autoimmune retinopathy Plan: From Cardiology's perspective, we will increase losartan for better blood pressure control. Patient will follow-up in the office with Dr. Galvan. WINDOWS SERVER ADMINISTRATOR note has been reviewed, I agree with a documented findings and plan of care. Patient was seen and examined.
--- NOTE | 2018-01-06 16:27 | P.PN ---
Subjective Progress Note Date: 01/06/18 Principal diagnosis: Syncope Mr. Sosa is a 67-year-old male who is a [place] vet with history of recurrent episodes of syncope and seizures last seizure was in 2007 admitted to the hospital with a chief complaint of passing out at home twice. This admission patient had an episode that he vomited and passed out and was unresponsive and so EMS was called and he was brought into the hospital. 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 On EMS arrival, patient was hemodynamically stable, extremely weak, he did not lose bowel or bladder function. He denies any chest discomfort or palpitations prior to this episode happening but does state that on occasion he notices palpitations and gets intermittent sharp chest pains at times. CAT scan revealed cerebral atrophy, chronic small vessel ischemia. There is progression of white matter disease as compared with old exam. Chest x-ray shows possible new right paratracheal infiltrate as compared with prior exam. 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 EKG shows normal sinus rhythm with no acute changes. Today the patient is lying in bed appears to be no acute distress. His family members are at the bedside. Review of systems Constitutional-no fevers chills or rigors Cardiac-No chest pain or difficulty in breathing Respiratory-no cough or sputum production GI-no abdominal pain nausea vomiting or diarrhea -no dysuria or hematuria Neurological-patient denies having any weakness, slurring of speech. Patient does have history of cervical bony spurs and has difficulty in swallowing. Objective - Vital Signs Vital signs: Vital Signs Temp 98.1 F 01/06/18 11:49 Pulse 62 01/06/18 11:49 Resp 20 01/06/18 11:49 BP 128/82 01/06/18 11:49 Pulse Ox 97 01/06/18 11:49 Intake & Output 01/05/18 01/06/18 01/06/18 18:59 06:59 18:59 Intake Total 840 375 780 Output Total 450 Balance 840 375 330 Weight 92.2 kg Intake: Intake, IV Titration 375 600 Amount Sodium Chloride 0.9% 1, 375 600 000 ml @ 75 mls/hr IV . [id number] [facility] Rx#:[id number] Oral 840 180 Output: Urine 450 Other: # Voids 1 - Exam HEENT: Head is atraumatic, normocephalic. Pupils equal, round. She is legally blind Neck is supple. There is no elevated jugular venous pressure. CARDIOVASCULAR: Heart sounds regular, S1 and S2 normal. No murmur or gallop heard. RESPIRATORY : Lungs are clear to auscultation and precussion. No chest wall tenderness is noted on palpation or with deep breathing. ABDOMEN: Soft, nontender. Bowel sounds are heard. No organomegaly noted. EXTREMITIES: 2+ peripheral pulses with no evidence of peripheral edema and no calf tenderness noted. NEUROLOGIC patient is awake, alert and oriented x3. . - Labs CBC & Chem 7: 01/06/18 05:18 01/06/18 05:18 Labs: Abnormal Lab Results - Last 24 Hours (Table) 01/05/18 01/06/18 01/06/18 Range/Units 16:25 05:18 05:54 Chloride 108 H (98-107) mmol/L Glucose 101 H (74-99) mg/dL POC Glucose (mg/dL) 179 H 118 H (75-99) mg/dL 01/06/18 Range/Units 11:35 Chloride (98-107) mmol/L Glucose (74-99) mg/dL POC Glucose (mg/dL) 138 H (75-99) mg/dL Assessment and Plan Assessment: Assessment: Syncope, rule out cardiac causes, possible TIA History of seizures History of prior TIA Hypertension Hyperlipidemia Retinitis pigmentosa and legally blind Plan; patient had an MRI this morning the results of which are pending. EEG as recommended by neurology. Brain CT and CT and have been within normal limits. Echocardiogram within normal limits. Resume the rest of his home medications. Continue with aspirin and Aggrenox. Further recommendations depending on the progress of the patient.
[2018-01-06 17:13] LABS: Glucose,Whole Blood 119 mg/dL (75-99)
--- NOTE | 2018-01-06 18:27 | P.HPIM ---
History of Present Illness This is a pleasant 67 years old male with past medical history of CVA, GERD, hyperlipidemia, hypertension, lupus, autoimmune retinopathy and he is legally blind. 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 Who presents because of syncope/near syncope. Patient reports several attacks over the last 4-5 years of becoming unresponsive for short time and sometimes been attributed to TIA in during which he becomes confused about to pass out associated with some vomiting, last attack happened about 3 months ago when he was about to go to [place] for a trip when his found him on the floor of the basement, passed out with vomiting. This time presents with similar presentation in which he was lying in his recliner with his current son when he was noticed that she was not feeling well, shortly after that he becomes sloppy confused and lightheaded and felt about to pass out associated with some vomiting. However he denies chest pain or dyspnea during that time or headache he managed to lie down on the couch and slipped off the couch but he got caught by his grandson during that time he kept going up. they called EMS for him as per patient and during this episode he was awake all the time but he felt she cannot think and nonfunctional and; refused and he couldn't realize to his surrounding well after 20-30 minutes as per daughter at bedside when he was in the hospital The emergency room patient has negative CT angiogram of the neck. Chest x-ray showing possible right lower lobe infiltrate and recommended to repeat chest x- ray. Brain CT was unremarkable for acute event. Echo shows ejection fraction 55-60% with mild LVH. CBC was unremarkable as well as BMP and LFTs. Patient was started on aspirin and IV fluids Review of Systems CONSTITUTIONAL: No fever, no malaise, no fatigue. HEENT: No recent visual problems or hearing problems. Denied any sore throat. CARDIOVASCULAR: No orthopnea, PND, no palpitations, no syncope. PULMONARY: No shortness of breath, no cough, no hemoptysis. GASTROINTESTINAL: No diarrhea, no nausea, no vomiting, no abdominal pain. Normoactive bowel sounds. NEUROLOGICAL: No headaches, no weakness, no numbness. HEMATOLOGICAL: Denies any bleeding or petechiae. GENITOURINARY: Denies any burning micturition, frequency, or urgency. MUSCULOSKELETAL/RHEUMATOLOGICAL: Denies any joint pain, swelling, or any muscle pain. ENDOCRINE: Denies any polyuria or polydipsia. Past Medical History Past Medical History: CVA/TIA, GERD/Reflux, Hyperlipidemia, Hypertension Additional Past Medical History / Comment(s): legally blind, lupus, autoimmune retinopathy ( retinitis) History of Any Multi-Drug Resistant Organisms: None Reported Past Surgical History: Orthopedic Surgery, Tonsillectomy Additional Past Surgical History / Comment(s): eye and ear surgeries, nephrolithiasis, deviated septum sx; Left knee meniscus; broke 3 fingers on left hand Past Anesthesia/Blood Transfusion Reactions: No Reported Reaction Past Psychological History: Anxiety Smoking Status: Former smoker Past Alcohol Use History: Occasional Past Drug Use History: Marijuana Medications and Allergies Home Medications Medication Instructions Recorded Confirmed Type Losartan [Cozaar] 12.5 mg PO DAILY 03/18/14 01/04/18 History Metoprolol Succinate [Toprol XL] 12.5 mg PO DAILY 03/18/14 01/04/18 History Mycophenolate Mofetil [Cellcept] 250 mg PO BID 03/18/14 01/04/18 History Nitroglycerin Sl Tabs [Nitrostat] 0.4 mg PO Q5M PRN 03/18/14 01/04/18 History Omeprazole [PriLOSEC] 40 mg PO DAILY 03/18/14 01/04/18 History Atorvastatin [Lipitor] 80 mg PO HS 01/04/18 01/04/18 History Benzoyl Peroxide 5% Lotion 1 applic TOPICAL DAILY 01/04/18 01/04/18 History Cholecalciferol [Vitamin D3] 1,000 unit PO DAILY 01/04/18 01/04/18 History Clindamycin Topical Soln 1 applic TOPICAL BID 01/04/18 01/04/18 History [Cleocin-T Topical Soln] Cyclobenzaprine [Flexeril] 10 mg PO BID PRN 01/04/18 01/04/18 History Dipyridamole-Aspirin 200-25 mg 1 cap PO BID 01/04/18 01/04/18 History [Aggrenox] FLUoxetine HCL [PROzac] 20 mg PO DAILY 01/04/18 01/04/18 History Gabapentin [Neurontin] 100 mg PO TID 01/04/18 01/04/18 History Naproxen 500 mg PO BID 01/04/18 01/04/18 History amLODIPine [Norvasc] 5 mg PO DAILY 01/04/18 01/04/18 History sulfaSALAzine [Azulfidine] 1,000 mg PO BID 01/04/18 01/04/18 History Allergies Allergy/AdvReac Type Severity Reaction Status Date / Time No Known Allergies Allergy Verified 01/04/18 21:20 Physical Exam Vitals: Vital Signs Temp Pulse Pulse Pulse Pulse Pulse Resp 01/05/18 10:58 62 62 62 01/05/18 08:45 98.2 F 64 18 01/05/18 04:00 97.8 F 61 16 01/05/18 03:00 98.1 F 63 17 01/04/18 23:00 75 19 01/04/18 22:05 71 19 01/04/18 21:14 67 18 01/04/18 20:21 97.6 F 73 18 BP BP BP BP BP Pulse Ox 01/05/18 10:58 160/89 190/97 175/89 01/05/18 08:45 159/85 01/05/18 04:00 138/85 96 01/05/18 03:00 133/80 91 L 01/04/18 23:00 123/68 98 01/04/18 22:05 134/88 97 01/04/18 21:14 119/80 97 01/04/18 20:21 141/89 96 Intake and Output 01/04/18 01/05/18 01/05/18 22:59 06:59 14:59 Intake Total 150 Balance 150 Intake: Intake, IV Titration 150 Amount Sodium Chloride 0.9% 1, 150 000 ml @ 75 mls/hr IV . [id number] [facility] Rx#:[id number] Other: Weight 90.718 kg 91.4 kg GENERAL: The patient is alert and oriented x3, not in any acute distress. Well developed, well nourished. HEENT: Pupils are round and equally reacting to light. EOMI. No scleral icterus. No conjunctival pallor. Normocephalic, atraumatic. No pharyngeal erythema. No thyromegaly. CARDIOVASCULAR: S1 and S2 present. No murmurs, rubs, or gallops. PULMONARY: Chest is clear to auscultation, no wheezing or crackles. ABDOMEN: Soft, nontender, nondistended, normoactive bowel sounds. No palpable organomegaly. MUSCULOSKELETAL: No joint swelling or deformity. EXTREMITIES: No cyanosis, clubbing, or pedal edema. NEUROLOGICAL: Gross neurological examination did not reveal any focal deficits. SKIN: No rashes. Results CBC & Chem 7: 01/04/18 20:33 01/04/18 20:33 Labs: Abnormal Lab Results - Last 24 Hours (Table) 01/04/18 01/04/18 01/04/18 Range/Units 20:23 20:33 20:33 Lymphocytes # (Manual) 5.98 H (1.0-4.8) k/uL INR (<1.2) APTT (22.0-30.0) sec Glucose 126 H (74-99) mg/dL POC Glucose (mg/dL) 152 H (75-99) mg/dL Hemoglobin A1c (4.0-6.0) % Ur Specific [place] (1.001-1.035) Urine Protein (Negative) U Benzodiazepines Scrn (NotDetected) U Marijuana (THC) Screen (NotDetected) 01/04/18 01/04/18 01/05/18 Range/Units 20:33 23:00 02:31 Lymphocytes # (Manual) (1.0-4.8) k/uL INR 1.2 H (<1.2) APTT 21.1 L (22.0-30.0) sec Glucose (74-99) mg/dL POC Glucose (mg/dL) 156 H (75-99) mg/dL Hemoglobin A1c (4.0-6.0) % Ur Specific [place] >1.050 H (1.001-1.035) Urine Protein Trace H (Negative) U Benzodiazepines Scrn Detected H (NotDetected) U Marijuana (THC) Screen Detected H (NotDetected) 01/05/18 01/05/18 01/05/18 Range/Units 05:14 06:49 11:32 Lymphocytes # (Manual) (1.0-4.8) k/uL INR (<1.2) APTT (22.0-30.0) sec Glucose (74-99) mg/dL POC Glucose (mg/dL) 139 H 119 H (75-99) mg/dL Hemoglobin A1c 6.6 H (4.0-6.0) % Ur Specific [place] (1.001-1.035) Urine Protein (Negative) U Benzodiazepines Scrn (NotDetected) U Marijuana (THC) Screen (NotDetected) Thrombosis Risk Factor Assmnt - Choose All That Apply Any of the Below Risk Factors Present?: No Other Risk Factors: Yes Each Risk Factor Represents 2 Points: Age 61-74 years Other congenital or acquired thrombophilia - If yes, enter type in comment: No Thrombosis Risk Factor Assessment Total Risk Factor Score: 2 Thrombosis Risk Factor Assessment Level: Low Risk Assessment and Plan Assessment: Syncope Essential hypertension History of coronary artery disease, status post stenting Plan: This is a pleasant 67 years old male who presents because of syncope. Cardiology is been consulted. Neurology consult. Continue with telemetry. Continue with IV fluids. Patient is on aspirin. Labs and medication were resumed. Continue same treatment. Continue with symptomatic treatment. Resume home medication. Monitor lytes and vitals. DVT and GI prophylaxis. Further recommendationsof the clinical course of the patient DVT prophylaxis: Subcutaneous heparin GI Prophylaxis: Pepcid Prognosis is guarded
[2018-01-06] MEDS: ATORVASTATIN 80 MG TAB PO SCH (20:42)
[2018-01-06] MEDS: FAMOTIDINE 20 MG TAB PO SCH (20:42)
[2018-01-06] MEDS: LOSARTAN 25 MG TAB PO SCH (20:42)
[2018-01-06 20:55] LABS: Glucose,Whole Blood 169 mg/dL (75-99)
[2018-01-07] MEDS: SODIUM CHLORIDE 0.9% 1,000 ML IV SCH (05:12)
[2018-01-07 06:15] LABS: Glucose,Whole Blood 107 mg/dL (75-99)
[2018-01-07 07:12] LABS: Basophils % (A) 1 %; Eosinophils # (A) 0.2 k/uL (0-0.7); Eosinophils % (A) 3 %; HCT 42.1 % (39.0-53.0); Lymphocytes # (A) 2.5 k/uL (1.0-4.8); Lymphocytes % (A) 44 %; MCH 31.2 pg (25.0-35.0); MCHC 33.2 g/dL (31.0-37.0); MCV 94.2 fL (80.0-100.0); Mean Platelet Volume 7.3; Monocytes # (A) 0.3 k/uL (0-1.0); Monocytes % (A) 6 %; Neutrophils # (A) 2.6 k/uL (1.3-7.7); Neutrophils % (A) 45 %; Platelet Count 190 k/uL (150-450); RBC 4.47 m/uL (4.30-5.90); RDW 12.6 % (11.5-15.5); WBC 5.8 k/uL (3.8-10.6)
[2018-01-07 07:32] LABS: Calcium 9.2 mg/dL (8.4-10.2); Potassium 4.1 mmol/L (3.5-5.1)
[2018-01-07] MEDS: GABAPENTIN 100 MG CAP PO SCH ×3 (08:42→19:57)
[2018-01-07] MEDS: FAMOTIDINE 20 MG TAB PO SCH ×2 (08:42→19:57)
[2018-01-07] MEDS: sulfaSALAzine 500 MG TAB PO SCH ×2 (08:42→19:58)
[2018-01-07] MEDS: amLODIPine 10 MG TAB PO SCH (08:42)
[2018-01-07] MEDS: CHOLECALCIFEROL 1,000 UNIT TAB PO SCH (08:42)
[2018-01-07] MEDS: ASPIRIN 325 MG TAB PO SCH (08:42)
[2018-01-07] MEDS: METOPROLOL SUCCINATE (ER) 25 MG TAB.ER.24H PO SCH (08:42)
[2018-01-07] MEDS: FLUoxetine HCL 20 MG CAP PO SCH (08:42)
[2018-01-07] MEDS: HEPARIN SODIUM,PORCINE 5,000 UNIT/ML 1 ML VIAL SQ SCH (08:42)
[2018-01-07] MEDS: MYCOPHENOLATE MOFETIL 250 MG CAP PO SCH ×2 (08:43→19:58)
[2018-01-07] MEDS: DIPYRIDAMOLE-ASPIRIN 200-25 MG 1 EACH CPMP.12HR PO SCH ×2 (08:44→19:58)
[2018-01-07] MEDS: LOSARTAN 25 MG TAB PO SCH ×2 (08:44→19:57)
[2018-01-07 11:45] LABS: Glucose,Whole Blood 145 mg/dL (75-99)
--- NOTE | 2018-01-07 11:46 | P.PN ---
Subjective Progress Note Date: 01/07/18 This is a pleasant 67-year-old gentleman with prior history of seizures on only one occasion, prior history of TIA, hypertension, hyperlipidemia, borderline diabetes, GERD, he is legally blind, has history of autoimmune or adenopathy, denies nicotine dependence, but does smoke marijuana. He presented to the hospital on this occasion following a syncopal episode. According to the patient, he states that he was putting some wood in his fire, he states that his grandson came over to visit him. He felt a little dizzy and lightheaded, and had an episode of what he described as severe nausea and vomiting, shortly thereafter he became somewhat unresponsive. He states that he did not pass out completely, he could hear people but was very slow to answer. Just prior to this happening patient does admit to taking cannabis. On EMS arrival, patient was hemodynamically stable, extremely weak, he did not lose bowel or bladder function. He denies any chest discomfort or palpitations prior to this episode happening but does state that on occasion he notices palpitations and gets intermittent sharp chest pains at times. CAT scan revealed cerebral atrophy, chronic small vessel ischemia. There is progression of white matter disease as compared with old exam. Chest x-ray shows possible new right paratracheal infiltrate as compared with prior exam. 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 EKG shows normal sinus rhythm with no acute changes. Blood pressure 140/80 with a heart rate in the 70s, 96% on room air. White blood cell count 9.2, hemoglobin 14.1, platelet count 200. Sodium 140, potassium 4.7, BUN 18, creatinine 1.1. Troponin 0.018, 0.012. At the time of my examination this morning, patient denies any dizziness or lightheadedness, no chest discomfort. 01/07/2018 Patient seen and examined this morning, denies any dizziness or lightheadedness. Blood pressure 132/80 this morning. White blood cell count 5.8, hemoglobin 14, platelet count 190. Sodium 142, potassium 4.1, BUN 15 and creatinine 1.0. From cardiology's perspective, patient may be able to be discharged home once cleared by primary. Follow-up appointment in the office post discharge. Objective - Vital Signs Vital signs: Vital Signs Temp 97.7 F 01/07/18 08:48 Pulse 65 01/07/18 08:48 Resp 16 01/07/18 11:06 BP 168/101 01/07/18 08:48 Pulse Ox 98 01/07/18 08:48 Intake & Output 01/06/18 01/07/18 01/07/18 18:59 06:59 18:59 Intake Total 1250 675 Output Total 450 300 Balance 800 675 -300 Weight 94.7 kg Intake: Intake, IV Titration 600 675 Amount Sodium Chloride 0.9% 1, 600 675 000 ml @ 75 mls/hr IV . [id number] [facility] Rx#:[id number] Oral 650 Output: Urine 450 300 Other: Voiding Method Toilet # Voids 1 1 - Exam PHYSICAL EXAMINATION: GENERAL: 67-year-old gentleman in no acute distress at the time of my examination HEENT: Head is atraumatic, normocephalic. Pupils equal, round. Patient is legally blind. Sclera anicteric. Conjunctiva are clear. Mucous membranes of the mouth are moist. Neck is supple. There is no elevated jugular venous pressure. No carotid bruit is heard. HEART EXAMINATION: Heart S1, S2 normal. No murmur or gallop heard. CHEST EXAMINATION: Lungs are clear to auscultation and precussion. No chest wall tenderness is noted on palpation or with deep breathing. ABDOMEN: Soft, nontender. Bowel sounds are heard. No organomegaly noted. EXTREMITIES: 2+ peripheral pulses with no evidence of peripheral edema and no calf tenderness noted. NEUROLOGIC patient is awake, alert and oriented 3 - Labs CBC & Chem 7: 01/07/18 05:40 01/07/18 05:40 Labs: Abnormal Lab Results - Last 24 Hours (Table) 01/06/18 01/06/18 01/07/18 Range/Units 17:12 20:49 05:40 Chloride 109 H (98-107) mmol/L Glucose 112 H (74-99) mg/dL POC Glucose (mg/dL) 119 H 169 H (75-99) mg/dL 01/07/18 Range/Units 06:13 Chloride (98-107) mmol/L Glucose (74-99) mg/dL POC Glucose (mg/dL) 107 H (75-99) mg/dL Assessment and Plan Plan: Assessment and plan #1 syncope, rule out cardiac causes, possible TIA #2 history of prior TIA #3 hypertension #4 hyperlipidemia #5 and legal blindness #6 autoimmune retinopathy Plan Echocardiogram with Doppler study was performed which revealed an ejection fraction of 55-60%. From cardiology's perspective, patient may be able to be discharged home. We'll make a follow-up appointment in the office post discharge. DNP note has been reviewed, I agree with a documented findings and plan of care. Patient was seen and examined.
[2018-01-07] MEDS ORDERED: LOSARTAN 25 MG TAB PO STA (11:53)
--- NOTE | 2018-01-07 14:09 | P.PN ---
Subjective Progress Note Date: 01/07/18 Principal diagnosis: Syncopal episode Mr. Sosa is a 67-year-old male who is a [place] vet with history of recurrent episodes of syncope and seizures last seizure was in 2007 admitted to the hospital with a chief complaint of passing out at home twice. This admission patient had an episode that he vomited and passed out and was unresponsive and so EMS was called and he was brought into the hospital. 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 On EMS arrival, patient was hemodynamically stable, extremely weak, he did not lose bowel or bladder function. He denies any chest discomfort or palpitations prior to this episode happening but does state that on occasion he notices palpitations and gets intermittent sharp chest pains at times. CAT scan revealed cerebral atrophy, chronic small vessel ischemia. There is progression of white matter disease as compared with old exam. Chest x-ray shows possible new right paratracheal infiltrate as compared with prior exam. 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 EKG shows normal sinus rhythm with no acute changes. on 01/07/18 - Today the patient is lying in bed appears to be no acute distress. His is at the bedside today. Patient had an MRI - no acute cranial process, atrophy with periventricular white matter ischemic changes and EEG done yesterday- results are still pending . Review of systems Constitutional-no fevers chills or rigors Cardiac-No chest pain or difficulty in breathing Respiratory-no cough or sputum production GI-no abdominal pain nausea vomiting or diarrhea -no dysuria or hematuria Neurological-patient denies having any weakness, slurring of speech. Patient does have history of cervical bony spurs and has difficulty in swallowing. Objective - Vital Signs Vital signs: Vital Signs Temp 97.3 F L 01/07/18 11:54 Pulse 73 01/07/18 11:54 Resp 16 01/07/18 11:54 BP 152/101 01/07/18 11:54 Pulse Ox 97 01/07/18 11:54 Intake & Output 01/06/18 01/07/18 01/07/18 18:59 06:59 18:59 Intake Total 1250 675 222 Output Total 450 300 Balance 800 675 -78 Weight 94.7 kg Intake: Intake, IV Titration 600 675 Amount Sodium Chloride 0.9% 1, 600 675 000 ml @ 75 mls/hr IV . [id number] [facility] Rx#:[id number] Oral 650 222 Output: Urine 450 300 Other: Voiding Method Toilet # Voids 1 1 - Exam HEENT: Head is atraumatic, normocephalic. Pupils equal, round. He is legally blind Neck is supple. There is no elevated jugular venous pressure. CARDIOVASCULAR: Heart sounds regular, S1 and S2 normal. No murmur or gallop heard. RESPIRATORY : Lungs are clear to auscultation and precussion. No chest wall tenderness is noted on palpation or with deep breathing. ABDOMEN: Soft, nontender. Bowel sounds are heard. No organomegaly noted. EXTREMITIES: 2+ peripheral pulses with no evidence of peripheral edema and no calf tenderness noted. NEUROLOGIC patient is awake, alert and oriented x3. - Labs CBC & Chem 7: 01/07/18 05:40 01/07/18 05:40 Labs: Abnormal Lab Results - Last 24 Hours (Table) 01/06/18 01/06/18 01/07/18 Range/Units 17:12 20:49 05:40 Chloride 109 H (98-107) mmol/L Glucose 112 H (74-99) mg/dL POC Glucose (mg/dL) 119 H 169 H (75-99) mg/dL 01/07/18 01/07/18 Range/Units 06:13 11:43 Chloride (98-107) mmol/L Glucose (74-99) mg/dL POC Glucose (mg/dL) 107 H 145 H (75-99) mg/dL Assessment and Plan Assessment: Assessment: Syncope, rule out cardiac causes, possible TIA History of seizures History of prior TIA Hypertension Hyperlipidemia Retinitis pigmentosa and legally blind Plan; patient had an MRI yesterday the results of which are discussed with the and patient at bedside. EEG as recommended by neurology- done yesterday results pending. Brain CT and CT angiogram have been within normal limits. Echocardiogram within normal limits. Resume the rest of his home medications. Continue with aspirin and Aggrenox. Further recommendations depending on the progress of the patient.
[2018-01-07] MEDS: HYDROCHLOROTHIAZIDE 25 MG TAB PO SCH (14:15)
[2018-01-07 17:27] LABS: Glucose,Whole Blood 104 mg/dL (75-99)
--- NOTE | 2018-01-07 18:05 | EEG ---
ELECTROENCEPHALOGRAM REPORT DATE OF EE01/06/2018. REFERRING PHYSICIAN: Dr. Rojas. CONSULTING/INTERPRETING PHYSICIAN: Dr. Norma Vazquez MD ELECTROENCEPHALOGRAPHIC EXAMINATION REPORT: INDICATION FOR EXAMINATION: This patient is a 67-year-old [place] war being evaluated for recurrent episodes of syncope versus seizure. AGE: [age]. EEG FINDINGS: A routine 21 channel awake digital EEG recording was accomplished utilizing the 10-20 international system with bipolar and referential montages. The background activity in the most alert resting state consists of a low to medium amplitude, fairly well- developed and well sustained 8 Hz activity over the posterior head regions. This posterior rhythm attenuates to eye opening. There is a small amount of low amplitude 18-20 Hz beta activity seen maximally over the anterior head regions. Muscle and movement artifact was observed on a few occasions during the tracing. Hyperventilation was not performed. Photic stimulation at flash frequencies of 2-30 Hz produced a good symmetrical occipital driving response. No epileptiform discharges were seen. IMPRESSION: This EEG is within normal limits for the patient's age. The EEG failed to reveal any focal, lateralized, or epileptiform abnormalities. Clinical correlation is recommended. MMODL / IJN: [id number] /
[2018-01-07] MEDS: ATORVASTATIN 80 MG TAB PO SCH (19:57)
[2018-01-07 20:16] VITALS: RESP 16
[2018-01-07 20:40] LABS: Glucose,Whole Blood 103 mg/dL (75-99)
[2018-01-08 05:48] LABS: Glucose,Whole Blood 105 mg/dL (75-99)
[2018-01-08 06:09] LABS: Basophils % (A) 1 %; Eosinophils # (A) 0.1 k/uL (0-0.7); Eosinophils % (A) 1 %; HCT 48.8 % (39.0-53.0); Lymphocytes # (A) 3.3 k/uL (1.0-4.8); Lymphocytes % (A) 40 %; MCH 31.5 pg (25.0-35.0); MCHC 32.8 g/dL (31.0-37.0); MCV 96.1 fL (80.0-100.0); Monocytes # (A) 0.4 k/uL (0-1.0); Monocytes % (A) 5 %; Neutrophils # (A) 4.2 k/uL (1.3-7.7); Neutrophils % (A) 51 %; Platelet Count 228 k/uL (150-450); RBC 5.08 m/uL (4.30-5.90); RDW 12.8 % (11.5-15.5); WBC 8.1 k/uL (3.8-10.6)
[2018-01-08 06:28] LABS: Calcium 9.8 mg/dL (8.4-10.2); Potassium 4.5 mmol/L (3.5-5.1)
[2018-01-08] MEDS: METOPROLOL SUCCINATE (ER) 25 MG TAB.ER.24H PO SCH (07:33)
[2018-01-08] MEDS: FAMOTIDINE 20 MG TAB PO SCH (07:33)
[2018-01-08] MEDS: LOSARTAN 25 MG TAB PO SCH (07:34)
[2018-01-08] MEDS: FLUoxetine HCL 20 MG CAP PO SCH (07:34)
[2018-01-08] MEDS: GABAPENTIN 100 MG CAP PO SCH (07:34)
[2018-01-08] MEDS: CHOLECALCIFEROL 1,000 UNIT TAB PO SCH (07:35)
[2018-01-08] MEDS: HYDROCHLOROTHIAZIDE 25 MG TAB PO SCH (07:35)
[2018-01-08] MEDS: sulfaSALAzine 500 MG TAB PO SCH (07:45)
[2018-01-08] MEDS: DIPYRIDAMOLE-ASPIRIN 200-25 MG 1 EACH CPMP.12HR PO SCH (07:46)
[2018-01-08] MEDS: MYCOPHENOLATE MOFETIL 250 MG CAP PO SCH (07:46)
[2018-01-08] MEDS ORDERED: ASPIRIN 81 MG PO SCH (09:00)
[2018-01-08] MEDS ORDERED: amLODIPine 5 MG TAB PO SCH (09:00)
[2018-01-08 11:25] VITALS: BP 158/81; PULSE 65; TEMP 98.1
[2018-01-08 12:30] LABS: Glucose,Whole Blood 118 mg/dL (75-99)
[2018-01-08] MEDS ORDERED: LOSARTAN 25 MG TAB PO STA (13:14)
[2018-01-08] MEDS ORDERED: FUROSEMIDE 10 MG/ML 2 ML VIAL IV ONE (13:19)
--- NOTE | 2018-01-08 13:26 | P.PN ---
Subjective Progress Note Date: 01/08/18 This is a pleasant 67-year-old gentleman with prior history of seizures on only one occasion, prior history of TIA, hypertension, hyperlipidemia, borderline diabetes, GERD, he is legally blind, has history of autoimmune retinopathy, denies nicotine dependence, but does smoke marijuana. He presented to the hospital on this occasion following a syncopal episode. According to the patient, he states that he was putting some wood in his fire, he states that his grandson came over to visit him. He felt a little dizzy and lightheaded, and had an episode of what he described as severe nausea and vomiting, shortly thereafter he became somewhat unresponsive. He states that he did not pass out completely, he could hear people but was very slow to answer. Just prior to this happening patient does admit to taking cannabis. On EMS arrival, patient was hemodynamically stable, extremely weak, he did not lose bowel or bladder function. He denies any chest discomfort or palpitations prior to this episode happening but does state that on occasion he notices palpitations and gets intermittent sharp chest pains at times. CAT scan revealed cerebral atrophy, chronic small vessel ischemia. There is progression of white matter disease as compared with old exam. Chest x-ray shows possible new right paratracheal infiltrate as compared with prior exam. 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 MRI showed no acute cranial process. EKG shows normal sinus rhythm with no acute changes. Echo showed normal LV systolic function with EF 55-60% with mild MR. No further episodes of syncope. Blood pressure remains poorly controlled 158/81 this morning. Objective - Vital Signs Vital signs: Vital Signs Temp 98.1 F 01/08/18 11:24 Pulse 65 01/08/18 11:25 Resp 16 01/08/18 11:25 BP 158/81 01/08/18 11:24 Pulse Ox 98 01/08/18 11:24 Intake & Output 01/07/18 01/08/18 01/08/18 19:59 06:59 18:59 Intake Total 522 Output Total 400 Balance 122 Weight Intake: Oral 522 Output: Urine 400 Other: Voiding Method Toilet # Voids 1 # Bowel Movements - Exam PHYSICAL EXAMINATION: HEENT: Head is atraumatic, normocephalic. Pupils equal, round. She is legally blind Neck is supple. There is no elevated jugular venous pressure. HEART EXAMINATION: Heart sounds regular, S1 and S2 normal. No murmur or gallop heard. CHEST EXAMINATION: Lungs are clear to auscultation and precussion. No chest wall tenderness is noted on palpation or with deep breathing. ABDOMEN: Soft, nontender. Bowel sounds are heard. No organomegaly noted. EXTREMITIES: 2+ peripheral pulses with no evidence of peripheral edema and no calf tenderness noted. NEUROLOGIC patient is awake, alert and oriented x3. . - Labs CBC & Chem 7: 01/08/18 05:14 01/08/18 05:14 Labs: Abnormal Lab Results - Last 24 Hours (Table) 01/07/18 01/07/18 01/08/18 Range/Units 16:53 20:38 05:14 Glucose 115 H (74-99) mg/dL POC Glucose (mg/dL) 104 H 103 H (75-99) mg/dL 01/08/18 01/08/18 Range/Units 05:46 12:09 Glucose (74-99) mg/dL POC Glucose (mg/dL) 105 H 118 H (75-99) mg/dL Assessment and Plan Assessment: #1 syncope, rule out cardiac causes, possible TIA #2 history of prior TIA #3 hypertension #4 hyperlipidemia #5 legal blindness #6 autoimmune retinopathy Plan: From Cardiology's perspective, we will increase losartan to 50mg BID. Patient will follow-up in the office with Dr. Galvan. [employer]BR[employer] note has been reviewed, I agree with a documented findings and plan of care. Patient was seen and examined.
--- NOTE | 2018-01-08 13:59 | P.DS ---
Providers Date of admission: 01/04/18 23:49 Expected date of discharge: 01/08/18 Attending physician: Nic Rojas Consults: 01/04/18 23:53 Consult Physician Routine Consulting Provider: Peyton Galvan Consult Reason/Comments: syncope Do you want consulting provider notified?: Yes Consult Physician Routine Consulting Provider: Norma Vazquez Consult Reason/Comments: TIA Do you want consulting provider notified?: Yes Primary care physician: [facility] Course: HPI - This is a pleasant 67 years old male with past medical history of CVA, GERD, hyperlipidemia, hypertension, lupus, autoimmune retinopathy and he is legally blind. 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 Who presents because of syncope/near syncope. Patient reports several attacks over the last 4-5 years of becoming unresponsive for short time and sometimes been attributed to TIA in during which he becomes confused about to pass out associated with some vomiting, last attack happened about 3 months ago when he was about to go to [place] for a trip when his found him on the floor of the basement, passed out with vomiting. This time presents with similar presentation in which he was lying in his recliner with his current son when he was noticed that she was not feeling well, shortly after that he becomes sloppy confused and lightheaded and felt about to pass out associated with some vomiting. However he denies chest pain or dyspnea during that time or headache he managed to lie down on the couch and slipped off the couch but he got caught by his grandson during that time he kept going up. they called EMS for him as per patient and during this episode he was awake all the time but he felt she cannot think and nonfunctional and; refused and he couldn't realize to his surrounding well after 20-30 minutes as per daughter at bedside when he was in the hospital The emergency room patient has negative CT angiogram of the neck. Chest x-ray showing possible right lower lobe infiltrate and recommended to repeat chest x- ray. Brain CT was unremarkable for acute event. Echo shows ejection fraction 55-60% with mild LVH. CBC was unremarkable as well as BMP and LFTs. Patient was started on aspirin and IV fluids During the hospital stay the patient had workup for dizziness. CT of the head and CT Angio of the neck and echocardiogram within normal limits. EKG within normal limits. Neurology and cardiology services have been on board and have been following the patient closely. Patient's blood pressure has been high and so he has been started on hydrochlorothiazide and his stress losartan has been increased to 50 mg twice a day. The rest of his home medications remain the same. The patient is back to his baseline. He has been cleared by cardiology and neurology to be discharged home in a stable condition today. Patient's vitals at the time of discharge. Temperature 98.1. Heart rate 65. Respiratory 16. Blood pressure 158. Given. Saturating at 98% on room air. Patient's physical exam. HEENT: Head is atraumatic, normocephalic. Pupils equal, round. He is legally blind Neck is supple. There is no elevated jugular venous pressure. CARDIOVASCULAR: Heart sounds regular, S1 and S2 normal. No murmur or gallop heard. RESPIRATORY : Lungs are clear to auscultation and precussion. No chest wall tenderness is noted on palpation or with deep breathing. ABDOMEN: Soft, nontender. Bowel sounds are heard. No organomegaly noted. EXTREMITIES: 2+ peripheral pulses with no evidence of peripheral edema and no calf tenderness noted. NEUROLOGIC patient is awake, alert and oriented x3. DISCHARGE DIAGNOSIS Syncope, rule out cardiac causes, possible TIA History of seizures History of prior TIA Hypertension Hyperlipidemia Retinitis pigmentosa and legally blind Plan: Patient is being discharged home in a stable condition to be followed up with cardiology and neurology within 1 week. The patient is advised to follow-up with his PCP within one week. Discussed about the discharge medications with the patient and his at the bedside. The new medication added is hydrochlorothiazide 25 mg and the dose of losartan has been increased to 50 mg twice a day. More than 35 minutes spent towards the discharge of the patient. Patient Condition at Discharge: Stable Plan - Discharge Summary Discharge Rx Participant: No New Discharge Prescriptions: New Hydrochlorothiazide [Hydrodiuril] 25 mg PO DAILY #30 tab Losartan [Cozaar] 50 mg PO BID #60 tab Continue Omeprazole [PriLOSEC] 40 mg PO DAILY Nitroglycerin Sl Tabs [Nitrostat] 0.4 mg PO Q5M PRN PRN Reason: Chest Pain Mycophenolate Mofetil [Cellcept] 250 mg PO BID Metoprolol Succinate [Toprol XL] 12.5 mg PO DAILY sulfaSALAzine [Azulfidine] 1,000 mg PO BID Gabapentin [Neurontin] 100 mg PO TID Dipyridamole-Aspirin 200-25 mg [Aggrenox 25MG -200MG] 1 cap PO BID Atorvastatin [Lipitor] 80 mg PO HS Naproxen 500 mg PO BID Cyclobenzaprine [Flexeril] 10 mg PO BID PRN PRN Reason: Muscle Spasm Cholecalciferol [Vitamin D3] 1,000 unit PO DAILY Clindamycin Topical Soln [Cleocin-T Topical Soln] 1 applic TOPICAL BID Benzoyl Peroxide 5% Lotion 1 applic TOPICAL DAILY amLODIPine [Norvasc] 5 mg PO DAILY FLUoxetine HCL [PROzac] 20 mg PO DAILY Discontinued Losartan [Cozaar] 12.5 mg PO DAILY Discharge Medication List Metoprolol Succinate [Toprol XL] 12.5 mg PO DAILY 03/18/14 [History] Mycophenolate Mofetil [Cellcept] 250 mg PO BID 03/18/14 [History] Nitroglycerin Sl Tabs [Nitrostat] 0.4 mg PO Q5M PRN 03/18/14 [History] Omeprazole [PriLOSEC] 40 mg PO DAILY 03/18/14 [History] Atorvastatin [Lipitor] 80 mg PO HS 01/04/18 [History] Benzoyl Peroxide 5% Lotion 1 applic TOPICAL DAILY 01/04/18 [History] Cholecalciferol [Vitamin D3] 1,000 unit PO DAILY 01/04/18 [History] Clindamycin Topical Soln [Cleocin-T Topical Soln] 1 applic TOPICAL BID 01/04/18 [History] Cyclobenzaprine [Flexeril] 10 mg PO BID PRN 01/04/18 [History] Dipyridamole-Aspirin 200-25 mg [Aggrenox 25MG -200MG] 1 cap PO BID 01/04/18 [ History] FLUoxetine HCL [PROzac] 20 mg PO DAILY 01/04/18 [History] Gabapentin [Neurontin] 100 mg PO TID 01/04/18 [History] Naproxen 500 mg PO BID 01/04/18 [History] amLODIPine [Norvasc] 5 mg PO DAILY 01/04/18 [History] sulfaSALAzine [Azulfidine] 1,000 mg PO BID 01/04/18 [History] Hydrochlorothiazide [Hydrodiuril] 25 mg PO DAILY #30 tab 01/08/18 [Rx] Losartan [Cozaar] 50 mg PO BID #60 tab 01/08/18 [Rx] Follow up Appointment(s)/Referral(s): Peyton Galvan MD [STAFF PHYSICIAN] - 01/31/18 2:30 pm [facility],Clinic [Primary Care Provider] - 1-2 days (I am unable to make a follow up appointment. Offices are closed at this time. Please call Tuesday to make a follow up appointment.) Patient Instructions/Handouts: Heart Healthy Diet (ED), Syncope (ED), Hypertension (ED) Discharge Disposition: HOME SELF-CARE
[2018-01-08] MEDS ORDERED: LOSARTAN 50 MG TAB PO SCH (21:00)
== END 2018-01-08 14:42 | disposition home or self-care (01) ==
LOC: EC 20:16 → 3SCARD 23:49
PROVIDERS: ADMIT Hospitalist; ATTEND Hospitalist
DX: R55 Syncope and collapse (principal); I10 Essential (primary) hypertension; R53.1 Weakness; R61 Generalized hyperhidrosis; R11.2 Nausea with vomiting, unspecified; R41.82 Altered mental status, unspecified; R42 Dizziness and giddiness; K21.9 Gastro-esophageal reflux disease without esophagitis; H54.8 Legal blindness, as defined in USA; E78.5 Hyperlipidemia, unspecified; R73.03 Prediabetes; I25.10 Atherosclerotic heart disease of native coronary artery without angina pectoris; G31.9 Degenerative disease of nervous system, unspecified; M32.9 Systemic lupus erythematosus, unspecified; H35.52 Pigmentary retinal dystrophy; R19.7 Diarrhea, unspecified; F12.90 Cannabis use, unspecified, uncomplicated; F41.9 Anxiety disorder, unspecified; H93.13 Tinnitus, bilateral; R13.10 Dysphagia, unspecified; M46.02 Spinal enthesopathy, cervical region; Z79.82 Long term (current) use of aspirin; Z79.1 Long term (current) use of non-steroidal anti-inflammatories (NSAID); Z79.899 Other long term (current) drug therapy; Z86.73 Personal history of transient ischemic attack (TIA), and cerebral infarction without residual deficits; Z95.5 Presence of coronary angioplasty implant and graft; Z87.442 Personal history of urinary calculi; Z86.69 Personal history of other diseases of the nervous system and sense organs; Z87.891 Personal history of nicotine dependence
CPT/HCPCS: 96376; 96372 ×3; 96374; 96361 ×2; 99285; 36415; 95816; 93005; 93306; 80053; 80048 ×3; 82550; 82553; 84484; 85025 ×4; 85610; 85730; 81003; 80306; 83036; 71045; 70496; 70450; 70498; 70553; G0378 ×5; J1644 ×3; J7517 ×4; A9585; Q9967

== ENCOUNTER → 2018-02-22 | Outpatient (CLI) | payer OTHER ==
--- NOTE | 2018-02-22 10:56 | CT ---
EXAMINATION TYPE: CT chest wo con DATE OF EXAM: 02/22/2018 COMPARISON: Chest radiograph dated 01/04/2018 HISTORY: Prior abnormal examination. Airspace disease noted on the chest radiograph of 01/04/2018. Maciej arvizu describes syncope and nausea that time. CT DLP: 780.5 mGycm. Automated Exposure Control for Dose Reduction was Utilized. TECHNIQUE: CT scan of the thorax is performed without IV contrast. High-resolution CT protocol was u tilized therefore there is limitation in evaluation of subcentimeter pulmonary nodules. Supine and pr one axial imaging was performed without reformats. FINDINGS: LUNGS: There is mild bibasilar bronchiectasis that is cylindrical in type as seen on series 4 image 2 2 with the bronchi just slightly larger than the pulmonary arteries. This predominates within the lef t lower lobe such as on image 25 and 26. No peribronchial cuffing is appreciated. The previously seen /question right perihilar airspace disease is not reproduced and/or no longer present. There is no evidence of pulmonary fibrosis. No subpleural reticulation is seen. No interlobular septa l thickening. No honeycombing is noted. No significant emphysematous change. No pneumothorax or pleur al effusion. No focal consolidation. No pulmonary masses. As indicated above evaluation of pulmonary nodules limited given the noncontiguous slices. There is very minimal dependent atelectasis seen on p aracely imaging. Main tracheal bronchial tree appears patent. MEDIASTINUM: Lack of IV contrast is noted to limit evaluation for mediastinal and especially hilar ad enopathy. There are no definitive greater than 1 cm hilar or mediastinal lymph nodes. No cardiomega ly or pericardial effusion is seen. There are moderate to severe coronary artery calcifications. Ther e is mild aneurysmal dilatation of the ascending thoracic aorta measuring 4.2 cm. OTHER: Dystrophic calcifications are noted within the left lobe of thyroid seen on series 3 image 2. Bilateral mild in overall symmetric retroareolar gynecomastia is incidentally noted. Moderate multile kavya degenerative disc disease of the thoracic spine is present. IMPRESSION: 1. No CT evidence for lung disease. Minimal dependent subsegmental atelectasis is noted. 2. 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 No current conso lidation. Resolution of the previously seen perihilar airspace disease. 3. Moderate to severe coronary artery calcifications, marker of coronary artery disease. 4. Mild aneurysmal dilatation of the ascending thoracic aorta measuring up to 4.2 cm.
== END ==
LOC: RADCTMAIN 09:03
PROVIDERS: ATTEND Internal Medicine Critical Care Medicine
DX: J47.9 Bronchiectasis, uncomplicated (principal); I25.10 Atherosclerotic heart disease of native coronary artery without angina pectoris; I71.2 Thoracic aortic aneurysm, without rupture
CPT/HCPCS: 71250

== ENCOUNTER 2018-08-17 15:21 | Observation (INO) | payer OTHER, MEDICARE ==
[2018-08-17] MEDS ORDERED: SODIUM CHLORIDE 0.9% 500 ML 500 ML IV STA (15:28)
--- NOTE | 2018-08-17 15:33 | ED ---
General Adult HPI - General Stated complaint: Stroke Time Seen by Provider: 08/17/18 15:21 Source: RN notes reviewed - History of Present Illness Initial comments: This is a 67-year-old male is brought into the emergency department because of altered mental status. states she last saw him normal 2 hours ago. Patient was on the back porch when the came home and he wasn't able to communicate with her when EMS arrived he was groaning and moaning only occasionally say something but seemed to be a little move all 4 extremities was no apparent facial droop but his speech is very slow and deliberate. Patient has become more responsive according to EMS in route but the speech remains very deliberate and slow now. Patient himself does not know what's going on he states he doesn't know what happened. Patient states he doesn't feel right but he can't explain any further. Patient denies headache patient denies chest pain. Patient complains of difficulty getting a full breath. Patient denies any abdominal pain. According to EMS patient did vomit once in route - Related Data Home Medications Medication Instructions Recorded Confirmed Metoprolol Succinate [Toprol XL] 12.5 mg PO DAILY 03/18/14 08/17/18 Mycophenolate Mofetil [Cellcept] 250 mg PO BID 03/18/14 08/17/18 Omeprazole [PriLOSEC] 20 mg PO DAILY 03/18/14 08/17/18 Atorvastatin [Lipitor] 80 mg PO HS 01/04/18 08/17/18 Cholecalciferol [Vitamin D3 (25 1,000 unit PO DAILY 01/04/18 08/17/18 Mcg = 1000 Iu)] Cyclobenzaprine [Flexeril] 10 mg PO BID PRN 01/04/18 08/17/18 Dipyridamole-Aspirin 200-25 mg 1 cap PO BID 01/04/18 08/17/18 [Aggrenox 25MG -200MG] FLUoxetine HCL [PROzac] 40 mg PO DAILY 01/04/18 08/17/18 amLODIPine [Norvasc] 5 mg PO DAILY 01/04/18 08/17/18 sulfaSALAzine [Azulfidine] 1,000 mg PO BID 01/04/18 08/17/18 Ascorbic Acid [Vitamin C] 500 mg PO DAILY 08/17/18 08/17/18 Beta-Carotene Cap 1 cap PO DAILY 08/17/18 08/17/18 Ezetimibe [Zetia] 10 mg PO DAILY 08/17/18 08/17/18 Fish Oil 2000mg 2,000 mg PO DAILY 08/17/18 08/17/18 Gabapentin [Neurontin] 300 mg PO BID 08/17/18 08/17/18 Hydrochlorothiazide [Hydrodiuril] 25 mg PO DAILY 08/17/18 08/17/18 Vitamin E(Unknown) 1 cap PO DAILY 08/17/18 08/17/18 Previous Rx's Medication Instructions Recorded Losartan [Cozaar] 50 mg PO BID #60 tab 01/08/18 Allergies Allergy/AdvReac Type Severity Reaction Status Date / Time No Known Allergies Allergy Verified 08/17/18 15:59 Review of Systems ROS Statement: Those systems with pertinent positive or pertinent negative responses have been documented in the HPI. ROS Other: All systems not noted in ROS Statement are negative. Past Medical History Past Medical History: CVA/TIA, GERD/Reflux, Hyperlipidemia, Hypertension Additional Past Medical History / Comment(s): legally blind, lupus, autoimmune retinopathy ( retinitis) History of Any Multi-Drug Resistant Organisms: None Reported Past Surgical History: Orthopedic Surgery, Tonsillectomy Additional Past Surgical History / Comment(s): eye and ear surgeries, nephrolithiasis, deviated septum sx; Left knee meniscus; broke 3 fingers on left hand Past Anesthesia/Blood Transfusion Reactions: No Reported Reaction Past Psychological History: Anxiety Smoking Status: Former smoker Past Alcohol Use History: Occasional Past Drug Use History: Marijuana General Exam - General Exam Comments Initial Comments: GENERAL: Patient is well-developed and well-nourished. Patient is nontoxic and well- hydrated and is in mild distress. ENT: Neck is soft and supple. No significant lymphadenopathy is noted. Oropharynx is clear. Moist mucous membranes. Neck has full range of motion without eliciting any pain. EYES: The sclera were anicteric and conjunctiva were pink and moist. Extraocular movements were intact and pupils were equal round and reactive to light. Eyelids were unremarkable. PULMONARY: Unlabored respirations. Good breath sounds bilaterally. No audible rales rhonchi or wheezing was noted. CARDIOVASCULAR: There is a regular rate and rhythm without any murmurs gallops or rubs. ABDOMEN: Soft and nontender with normal bowel sounds. No palpable organomegaly was noted. There is no palpable pulsatile mass. SKIN: Skin is clear with no lesions or rashes and otherwise unremarkable. NEUROLOGIC: Patient is alert and oriented x3. Cranial nerves II through XII are grossly intact. Motor and sensory are also intact. Patient's speech is clear but very slow and deliberate I don't appreciate any slurring MUSCULOSKELETAL: Normal extremities with adequate strength and full range of motion. No lower extremity swelling or edema. No calf tenderness. LYMPHATICS: No significant lymphadenopathy is noted PSYCHIATRIC: Normal psychiatric evaluation. Course Vital Signs 08/17/18 08/17/18 15:36 16:29 Temperature 96.8 F L Pulse Rate 56 L 88 Respiratory 18 18 Rate Blood Pressure 119/79 117/63 O2 Sat by Pulse 99 98 Oximetry Medical Decision Making - Medical Decision Making EKG shows a sinus bradycardia 54 bpm IA interval is 138 QRS is 100 QT interval is 514 QTC is 487. EKG shows no ST segment elevation or depression CT of the brain shows no acute abnormality. Chest x-ray shows no acute abnormalities. I will begin to reevaluate the patient he was completely back to his baseline. Patient had no symptoms whatsoever. Family was in the room and they stated that he was slurring his speech and mumbling at home. Spoke with because he agreed to admit the patient admitted the patient I wrote admitting orders. - Lab Data Result diagrams: 08/17/18 15:30 08/17/18 15:30 Lab Results 08/17/18 08/17/18 08/17/18 Range/Units 15:30 15:30 15:30 WBC 7.5 (3.8-10.6) k/uL RBC 4.13 L (4.30-5.90) m/uL Hgb 13.0 (13.0-17.5) gm/dL Hct 38.4 L (39.0-53.0) % MCV 93.0 (80.0-100.0) fL MCH 31.4 (25.0-35.0) pg MCHC 33.7 (31.0-37.0) g/dL RDW 12.8 (11.5-15.5) % Plt Count 217 (150-450) k/uL Neutrophils % 46 % Lymphocytes % 46 % Monocytes % 4 % Eosinophils % 1 % Basophils % 1 % Neutrophils # 3.5 (1.3-7.7) k/uL Lymphocytes # 3.5 (1.0-4.8) k/uL Monocytes # 0.3 (0-1.0) k/uL Eosinophils # 0.1 (0-0.7) k/uL Basophils # 0.0 (0-0.2) k/uL PT 10.5 (9.0-12.0) sec INR 1.0 (<1.2) APTT 22.1 (22.0-30.0) sec D-Dimer 0.47 (<0.60) mg/L FEU Sodium 136 L (137-145) mmol/L Potassium 3.6 (3.5-5.1) mmol/L Chloride 99 (98-107) mmol/L Carbon Dioxide 24 (22-30) mmol/L Anion Gap 13 mmol/L BUN 25 H (9-20) mg/dL Creatinine 1.32 H (0.66-1.25) mg/dL Est GFR (CKD-EPI)AfAm 64 (>60 ml/min/1.73 sqM) Est GFR (CKD-EPI)NonAf 55 (>60 ml/min/1.73 sqM) Glucose 263 H (74-99) mg/dL Calcium 9.7 (8.4-10.2) mg/dL Total Bilirubin 0.6 (0.2-1.3) mg/dL AST 52 (17-59) U/L ALT 28 (21-72) U/L Alkaline Phosphatase 59 (38-126) U/L Troponin I (0.000-0.034) ng/mL Total Protein 7.1 (6.3-8.2) g/dL Albumin 4.5 (3.5-5.0) g/dL Amylase (30-110) U/L Lipase (23-300) U/L 08/17/18 08/17/18 Range/Units 15:30 15:30 WBC (3.8-10.6) k/uL RBC (4.30-5.90) m/uL Hgb (13.0-17.5) gm/dL Hct (39.0-53.0) % MCV (80.0-100.0) fL MCH (25.0-35.0) pg MCHC (31.0-37.0) g/dL RDW (11.5-15.5) % Plt Count (150-450) k/uL Neutrophils % % Lymphocytes % % Monocytes % % Eosinophils % % Basophils % % Neutrophils # (1.3-7.7) k/uL Lymphocytes # (1.0-4.8) k/uL Monocytes # (0-1.0) k/uL Eosinophils # (0-0.7) k/uL Basophils # (0-0.2) k/uL PT (9.0-12.0) sec INR (<1.2) APTT (22.0-30.0) sec D-Dimer (<0.60) mg/L FEU Sodium (137-145) mmol/L Potassium (3.5-5.1) mmol/L Chloride (98-107) mmol/L Carbon Dioxide (22-30) mmol/L Anion Gap mmol/L BUN (9-20) mg/dL Creatinine (0.66-1.25) mg/dL Est GFR (CKD-EPI)AfAm (>60 ml/min/1.73 sqM) Est GFR (CKD-EPI)NonAf (>60 ml/min/1.73 sqM) Glucose (74-99) mg/dL Calcium (8.4-10.2) mg/dL Total Bilirubin (0.2-1.3) mg/dL AST (17-59) U/L ALT (21-72) U/L Alkaline Phosphatase (38-126) U/L Troponin I <0.012 (0.000-0.034) ng/mL Total Protein (6.3-8.2) g/dL Albumin (3.5-5.0) g/dL Amylase 49 (30-110) U/L Lipase 412 H (23-300) U/L Disposition Clinical Impression: Transient cerebral ischemia Disposition: ADMITTED IP TO THIS HOSP Referrals: [facility],Clinic [Primary Care Provider] - 1-2 days Time of Disposition: 17:58
[2018-08-17 15:55] LABS: Basophils % (A) 1 %; Eosinophils # (A) 0.1 k/uL (0-0.7); Eosinophils % (A) 1 %; HCT 38.4 % (39.0-53.0); Lymphocytes # (A) 3.5 k/uL (1.0-4.8); Lymphocytes % (A) 46 %; MCH 31.4 pg (25.0-35.0); MCHC 33.7 g/dL (31.0-37.0); Mean Platelet Volume 7.8; Monocytes # (A) 0.3 k/uL (0-1.0); Monocytes % (A) 4 %; Neutrophils # (A) 3.5 k/uL (1.3-7.7); Neutrophils % (A) 46 %; Platelet Count 217 k/uL (150-450); RBC 4.13 m/uL (4.30-5.90); RDW 12.8 % (11.5-15.5); WBC 7.5 k/uL (3.8-10.6)
--- NOTE | 2018-08-17 16:01 | CT ---
EXAMINATION TYPE: CT brain wo con for TPA DATE OF EXAM: 08/17/2018 COMPARISON: 01/04/2018 HISTORY: Neuro deficits. CT DLP: 1154.4 mGycm Automated exposure control for dose reduction was used. FINDINGS: There is moderate generalized degenerative change. Areas of low-attenuation the white matter are nons pecific but most typical remote microvascular ischemia. Appears similar to the prior exam. No midline shift or mass effect. Calvarium intact No acute hemorrhage. Intracranial atherosclerotic changes seen. Changes of chronic sinusitis noted. C hanges of chronic right mastoiditis noted correlate for previous right mastoidectomy IMPRESSION: 1. DEGENERATIVE AND NONSPECIFIC WHITE MATTER CHANGES. NO MIDLINE SHIFT OR ACUTE HEMORRHAGE. IF THERE IS CONCERN FOR ACUTE ISCHEMIA CORRELATE WITH MRI CLINICALLY WARRANTED.
[2018-08-17 16:04] LABS: Albumin 4.5 g/dL (3.5-5.0); Calcium 9.7 mg/dL (8.4-10.2); Potassium 3.6 mmol/L (3.5-5.1); Total Bilirubin 0.6 mg/dL (0.2-1.3); Total Protein 7.1 g/dL (6.3-8.2)
[2018-08-17 16:10] LABS: D-Dimer 0.47 mg/L FEU (<0.60); Partial Thromboplastin Time 22.1 sec (22.0-30.0); Prothrombin Time 10.5 sec (9.0-12.0)
[2018-08-17 16:52] LABS: Amylase 49 U/L (30-110); Lipase 412 U/L (23-300)
--- NOTE | 2018-08-17 16:56 | XR ---
EXAMINATION TYPE: XR chest 2V DATE OF EXAM: 08/17/2018 COMPARISON: 01/04/2018 HISTORY: Weakness TECHNIQUE: Frontal and lateral views of the chest are obtained. FINDINGS: Heart is normal. Lungs are clear of consolidation. There is no pleural effusion. Thoracic aorta is atheromatous. There are chest leads. IMPRESSION: No active cardiopulmonary disease. Atheromatous aorta. No change.
[2018-08-17] MEDS ORDERED: ASPIRIN 325 MG TAB PO STA (17:59)
[2018-08-17] MEDS: SODIUM CHLORIDE 0.9% 1,000 ML IV SCH (18:39)
[2018-08-17 20:20] LABS: Amphetamine Screen,Urine Not Detected (NotDetected); Barbiturate Screen,Urine Not Detected (NotDetected); Benzodiazepines Screen,Urine Detected (NotDetected); Cocaine Screen,Urine Not Detected (NotDetected); Methadone Screen, Urine Not Detected (NotDetected); Opiate Screen,Urine Not Detected (NotDetected); Oxycodone Screen, Urine Not Detected (NotDetected); Phencyclidine Screen,Urine Not Detected (NotDetected); Tricyclic Antidepressant,Urine Not Detected (NotDetected); Urn Cannabinoid Scrn Detected (NotDetected)
[2018-08-17 21:50] VITALS: BMI 28.3
[2018-08-17] MEDS ORDERED: CYCLOBENZAPRINE 10 MG TAB PO PRN (21:50)
[2018-08-17 23:16] VITALS: RESP 16
[2018-08-18] MEDS: SODIUM CHLORIDE 0.9% 1,000 ML IV SCH (06:38)
[2018-08-18 06:53] LABS: Cholesterol 94 mg/dL (<200); HDL Cholesterol 19 mg/dL (40-60); LDL Cholesterol,Calculated 42 mg/dL (0-99); Triglycerides 163 mg/dL (<150)
[2018-08-18] MEDS ORDERED: PANTOPRAZOLE 40 MG TABLET PO SCH (07:30)
[2018-08-18] MEDS ORDERED: CHOLECALCIFEROL 1,000 UNIT TAB PO SCH (09:00)
[2018-08-18] MEDS ORDERED: DIPYRIDAMOLE-ASPIRIN 200-25 MG 1 EACH CPMP.12HR PO SCH (09:00)
[2018-08-18] MEDS ORDERED: amLODIPine 5 MG TAB PO SCH (09:00)
[2018-08-18] MEDS ORDERED: sulfaSALAzine 500 MG TAB PO SCH (09:00)
[2018-08-18] MEDS ORDERED: EZETIMIBE 10 MG TAB PO SCH (09:00)
[2018-08-18] MEDS ORDERED: ASCORBIC ACID 500 MG TAB PO SCH (09:00)
[2018-08-18] MEDS ORDERED: MYCOPHENOLATE MOFETIL 250 MG CAP PO SCH (09:00)
[2018-08-18] MEDS ORDERED: FLUoxetine HCL 20 MG CAP PO SCH (09:00)
[2018-08-18] MEDS ORDERED: GABAPENTIN 300 MG CAP PO SCH (09:00)
[2018-08-18] MEDS ORDERED: METOPROLOL SUCCINATE (ER) 25 MG TAB.ER.24H PO SCH (09:00)
[2018-08-18] MEDS ORDERED: LOSARTAN 50 MG TAB PO SCH (09:00)
[2018-08-18 11:49] VITALS: BP 122/66; PULSE 61; TEMP 96.7
--- NOTE | 2018-08-18 15:54 | P.HPIM ---
History of Present Illness 67-year-old pleasant gentleman In the Emergency Department with Compensative Altered Mental Status Although When I Valid the Patient Patient Is Alert Oriented 3 and Able to Provide a Good History to Me Patient Did Not Appear to Have a Stroke. Patient Was Dizzy He Patient Often Gets Dizzy Patient Does Have Significant Visual Problems and Legally Blind and He Believes That's Responsible for His Dizziness. Vision Doesn't Have Any Weakness. Patient Does Have a History of Macular Degeneration, retinitis pigmentosa because of his visual problems he often gets confused yesterday he was not confused he was just dizzy and was lying on the back porch and believed that he was confused and brought him to the ER. Patient had a CAT scan of the head which did not show any significant abnormality. Patient was a extensive evaluated January 2018 for TIA and stroke at the time CT angios the head and neck did not show any sign ificant abnormal echocardiogram was within normal notes patient is already on Aggrenox and a high dose of statin 80 mg. Patient doesn't have any weakness no need for speech therapy physical therapy and occupational therapy at this time. Patient although has elevated serum creatinine up to 1.25 baseline is around 1 believe patient is bit intravascularly 1 and depleted secondary to hydrochlorothiazide concerning his kidney function height ago thiazide is not beneficial patient probably is having low blood pressures which is causing his lightheadedness patient was started on losartan 50 twice a day during his last hospitalization which we'll cut it down to 50 daily and patient will be dischar ged to follow-up with PCP as an outpatient. Review of Systems REVIEW OF SYSTEMS: CONSTITUTIONAL: No fever, no malaise, no fatigue. HEENT: No recent visual problems or hearing problems. Denied any sore throat. CARDIOVASCULAR: No chest pain, orthopnea, PND, no palpitations, no syncope. PULMONARY: No shortness of breath, no cough, no hemoptysis. GASTROINTESTINAL: No diarrhea, no nausea, no vomiting, no abdominal pain. NEUROLOGICAL: No headaches, no weakness, no numbness. HEMATOLOGICAL: Denies any bleeding or petechiae. GENITOURINARY: Denies any burning micturition, frequency, or urgency. MUSCULOSKELETAL/RHEUMATOLOGICAL: Denies any joint pain, swelling, or any muscle pain. ENDOCRINE: Denies any polyuria or polydipsia. The rest of the 14-point review of systems is negative. Past Medical History Past Medical History: CVA/TIA, GERD/Reflux, Hyperlipidemia, Hypertension Additional Past Medical History / Comment(s): legally blind, lupus, autoimmune retinopathy (retinities pigmentosa) macular degeneration History of Any Multi-Drug Resistant Organisms: None Reported Past Surgical History: Orthopedic Surgery, Tonsillectomy Additional Past Surgical History / Comment(s): eye and ear surgeries, nephrolithiasis, deviated septum sx; Left knee meniscus; broke 3 fingers on left hand Past Anesthesia/Blood Transfusion Reactions: No Reported Reaction Past Psychological History: Anxiety Smoking Status: Never smoker Past Alcohol Use History: Occasional Past Drug Use History: Marijuana Additional Drug Use History / Comment(s): smokes marijuana 3 puffs at night to relax legs - Past Family History Father Family Medical History: CVA/TIA, Diabetes Mellitus, Hyperlipidemia, Hypertension Additional Family Medical History / Comment(s): aneursym Mother Additional Family Medical History / Comment(s): peripheral vascular disease Brother(s) Additional Family Medical History / Comment(s): brain cancer, vision problems Sister(s) Additional Family Medical History / Comment(s): knee replacements Medications and Allergies Home Medications Medication Instructions Recorded Confirmed Type Metoprolol Succinate [Toprol XL] 12.5 mg PO DAILY 03/18/14 08/17/18 History Mycophenolate Mofetil [Cellcept] 250 mg PO BID 03/18/14 08/17/18 History Omeprazole [PriLOSEC] 20 mg PO DAILY 03/18/14 08/17/18 History Atorvastatin [Lipitor] 80 mg PO HS 01/04/18 08/17/18 History Cholecalciferol [Vitamin D3 (25 1,000 unit PO DAILY 01/04/18 08/17/18 History Mcg = 1000 Iu)] Cyclobenzaprine [Flexeril] 10 mg PO BID PRN 01/04/18 08/17/18 History Dipyridamole-Aspirin 200-25 mg 1 cap PO BID 01/04/18 08/17/18 History [Aggrenox 25MG -200MG] FLUoxetine HCL [PROzac] 40 mg PO DAILY 01/04/18 08/17/18 History amLODIPine [Norvasc] 5 mg PO DAILY 01/04/18 08/17/18 History sulfaSALAzine [Azulfidine] 1,000 mg PO BID 01/04/18 08/17/18 History Losartan [Cozaar] 50 mg PO BID #60 tab 01/08/18 08/17/18 Rx Ascorbic Acid [Vitamin C] 500 mg PO DAILY 08/17/18 08/17/18 History Beta-Carotene Cap 1 cap PO DAILY 08/17/18 08/17/18 History Ezetimibe [Zetia] 10 mg PO DAILY 08/17/18 08/17/18 History Fish Oil 2000mg 2,000 mg PO DAILY 08/17/18 08/17/18 History Gabapentin [Neurontin] 300 mg PO BID 08/17/18 08/17/18 History Vitamin E(Unknown) 1 cap PO DAILY 08/17/18 08/17/18 History Allergies Allergy/AdvReac Type Severity Reaction Status Date / Time No Known Allergies Allergy Verified 08/17/18 15:59 Physical Exam Vitals: Vital Signs Temp Pulse Pulse Resp BP BP Pulse Ox 08/18/18 08:00 96.7 F L 61 122/66 97 08/18/18 03:00 98.1 F 66 16 130/71 98 08/17/18 23:00 59 L 16 123/64 97 08/17/18 21:16 97.7 F 53 L 18 132/77 93 L 08/17/18 21:08 98.6 F 08/17/18 20:00 151/131 08/17/18 19:50 64 16 151/131 78 L 08/17/18 19:40 58 L 18 147/93 98 08/17/18 19:20 58 L 22 128/78 98 08/17/18 19:10 58 L 17 127/73 95 08/17/18 18:50 56 L 18 126/75 98 08/17/18 18:40 57 L 12 125/76 98 08/17/18 18:20 57 L 16 134/76 97 08/17/18 18:10 58 L 18 123/69 96 08/17/18 17:50 61 17 121/73 98 08/17/18 17:40 59 L 4 L 125/73 99 08/17/18 17:10 58 L 12 135/77 98 08/17/18 17:00 60 8 L 129/75 62 L 08/17/18 16:40 57 L 7 L 129/75 76 L 08/17/18 16:30 56 L 12 87 L 08/17/18 16:29 88 18 117/63 98 08/17/18 16:20 52 L 8 L 115/70 94 L 08/17/18 16:10 54 L 16 109/63 87 L 08/17/18 15:50 51 L 11 L 124/70 Intake and Output 08/18/18 08/18/18 08/18/18 06:59 14:59 22:59 Intake Total 540 Balance 540 Intake: Intake, IV Titration 300 Amount Sodium Chloride 0.9% 1, 300 000 ml @ 100 mls/hr IV . Q10H AMINAH Rx#:[id number] Oral 240 Other: # Voids 1 Weight 89.9 kg PHYSICAL EXAMINATION: GENERAL: The patient is alert and oriented x3, not in any acute distress. Well developed, well nourished. HEENT: Pupils are round and equally reacting to light. EOMI. No scleral icterus. No conjunctival pallor. Normocephalic, atraumatic. No pharyngeal erythema. No thyromegaly. CARDIOVASCULAR: S1 and S2 present. No murmurs, rubs, or gallops. PULMONARY: Chest is clear to auscultation, no wheezing or crackles. ABDOMEN: Soft, nontender, nondistended, normoactive bowel sounds. No palpable organomegaly. MUSCULOSKELETAL: No joint swelling or deformity. EXTREMITIES: No cyanosis, clubbing, or pedal edema. NEUROLOGICAL: Gross neurological examination did not reveal any focal deficits. Her visual problems as mentioned above SKIN: No rashes. Results CBC & Chem 7: 08/17/18 15:30 08/17/18 15:30 Labs: Abnormal Lab Results - Last 24 Hours (Table) 08/17/18 08/17/18 08/17/18 Range/Units 15:30 15:30 15:30 RBC 4.13 L (4.30-5.90) m/uL Hct 38.4 L (39.0-53.0) % Sodium 136 L (137-145) mmol/L BUN 25 H (9-20) mg/dL Creatinine 1.32 H (0.66-1.25) mg/dL Glucose 263 H (74-99) mg/dL Triglycerides (<150) mg/dL HDL Cholesterol (40-60) mg/dL Lipase 412 H (23-300) U/L U Benzodiazepines Scrn (NotDetected) U Marijuana (THC) Screen (NotDetected) 08/17/18 08/18/18 Range/Units 19:53 06:24 RBC (4.30-5.90) m/uL Hct (39.0-53.0) % Sodium (137-145) mmol/L BUN (9-20) mg/dL Creatinine (0.66-1.25) mg/dL Glucose (74-99) mg/dL Triglycerides 163 H (<150) mg/dL HDL Cholesterol 19 L (40-60) mg/dL Lipase (23-300) U/L U Benzodiazepines Scrn Detected H (NotDetected) U Marijuana (THC) Screen Detected H (NotDetected) Thrombosis Risk Factor Assmnt - Choose All That Apply Other Risk Factors: Yes Each Risk Factor Represents 2 Points: Age 61-74 years Thrombosis Risk Factor Assessment Total Risk Factor Score: 2 Thrombosis Risk Factor Assessment Level: Low Risk Assessment and Plan Plan: -Dizziness: Secondary to probably low blood pressures at home and further management as mentioned above possible mild dehydration patient was encouraged to drink water at home will be discharged today. CAT scan of the head is negative for any stroke I do not believe patient has a TIA at this time patient had workup for TIA of the past patient will continue his Aggrenox and statin. -Acute renal failure: We'll azotemia secondary to intravascular depletion expected to improve with the cutting down on Cozaar and discontinue hydralazine -Depression -Hypertension -History of TIAs in the past -Macular degeneration and the retinitis pigmentosa as and patient is legally blind -Peripheral neuropathy -Gastroesophageal reflux disease Patient was discharged today with the above-mentioned plan
--- NOTE | 2018-08-18 15:55 | P.DS ---
Providers Date of admission: 08/17/18 17:59 Attending physician: Belkys Harris Consults: 08/17/18 17:59 Consult Physician Routine Consulting Provider: Cecilia Jordan Consult Reason/Comments: TIA Do you want consulting provider notified?: Yes Primary care physician: [facility] Hospital Course: As mentioned in HPI Patient Condition at Discharge: Stable Plan - Discharge Summary New Discharge Prescriptions: Continue Omeprazole [PriLOSEC] 20 mg PO DAILY Mycophenolate Mofetil [Cellcept] 250 mg PO BID Metoprolol Succinate [Toprol XL] 12.5 mg PO DAILY sulfaSALAzine [Azulfidine] 1,000 mg PO BID Dipyridamole-Aspirin 200-25 mg [Aggrenox 25MG -200MG] 1 cap PO BID Atorvastatin [Lipitor] 80 mg PO HS Cyclobenzaprine [Flexeril] 10 mg PO BID PRN PRN Reason: Muscle Spasm Cholecalciferol [Vitamin D3 (25 Mcg = 1000 Iu)] 1,000 unit PO DAILY amLODIPine [Norvasc] 5 mg PO DAILY FLUoxetine HCL [PROzac] 40 mg PO DAILY Gabapentin [Neurontin] 300 mg PO BID Ascorbic Acid [Vitamin C] 500 mg PO DAILY Fish Oil 2000mg 2,000 mg PO DAILY Ezetimibe [Zetia] 10 mg PO DAILY Vitamin E(Unknown) 1 cap PO DAILY Beta-Carotene Cap 1 cap PO DAILY Changed Losartan [Cozaar] 50 mg PO DAILY #60 tab Discontinued Hydrochlorothiazide [Hydrodiuril] 25 mg PO DAILY Discharge Medication List Metoprolol Succinate [Toprol XL] 12.5 mg PO DAILY 03/18/14 [History] Mycophenolate Mofetil [Cellcept] 250 mg PO BID 03/18/14 [History] Omeprazole [PriLOSEC] 20 mg PO DAILY 03/18/14 [History] Atorvastatin [Lipitor] 80 mg PO HS 01/04/18 [History] Cholecalciferol [Vitamin D3 (25 Mcg = 1000 Iu)] 1,000 unit PO DAILY 01/04/18 [History] Cyclobenzaprine [Flexeril] 10 mg PO BID PRN 01/04/18 [History] Dipyridamole-Aspirin 200-25 mg [Aggrenox 25MG -200MG] 1 cap PO BID 01/04/18 [History] FLUoxetine HCL [PROzac] 40 mg PO DAILY 01/04/18 [History] amLODIPine [Norvasc] 5 mg PO DAILY 01/04/18 [History] sulfaSALAzine [Azulfidine] 1,000 mg PO BID 01/04/18 [History] Ascorbic Acid [Vitamin C] 500 mg PO DAILY 08/17/18 [History] Beta-Carotene Cap 1 cap PO DAILY 08/17/18 [History] Ezetimibe [Zetia] 10 mg PO DAILY 08/17/18 [History] Fish Oil 2000mg 2,000 mg PO DAILY 08/17/18 [History] Gabapentin [Neurontin] 300 mg PO BID 08/17/18 [History] Vitamin E(Unknown) 1 cap PO DAILY 08/17/18 [History] Losartan [Cozaar] 50 mg PO DAILY #60 tab 08/18/18 [Rx] Follow up Appointment(s)/Referral(s): [facility],Clinic [Primary Care Provider] - 08/30/18 10:00 am Ambulatory/Diagnostic Orders: Basic Metabolic Panel [LAB.AMB] Location: None Selected Patient Instructions/Handouts: Transient Ischemic Attack (DC) Discharge Disposition: HOME SELF-CARE
[2018-08-18] MEDS ORDERED: ASPIRIN 325 MG TAB PO SCH (18:00)
--- NOTE | 2018-08-18 18:15 | P.PN ---
Progress Note - Text Progress Note Date: 08/18/18 Came to see the patient but he has already been discharged.
[2018-08-18] MEDS ORDERED: ATORVASTATIN 80 MG TAB PO SCH (21:00)
== END 2018-08-18 12:51 | disposition home or self-care (01) ==
LOC: EC 15:21 → 3SCARD 17:59
PROVIDERS: ADMIT Internal Medicine; ATTEND Internal Medicine
DX: R42 Dizziness and giddiness (principal); R11.10 Vomiting, unspecified; R41.82 Altered mental status, unspecified; N17.9 Acute kidney failure, unspecified; F32.9 Major depressive disorder, single episode, unspecified; F41.9 Anxiety disorder, unspecified; I10 Essential (primary) hypertension; Z86.73 Personal history of transient ischemic attack (TIA), and cerebral infarction without residual deficits; H35.30 Unspecified macular degeneration; H35.52 Pigmentary retinal dystrophy; H54.8 Legal blindness, as defined in USA; E78.5 Hyperlipidemia, unspecified; M32.9 Systemic lupus erythematosus, unspecified; G62.9 Polyneuropathy, unspecified; K21.9 Gastro-esophageal reflux disease without esophagitis; Z79.899 Other long term (current) drug therapy; Z87.891 Personal history of nicotine dependence; Z87.442 Personal history of urinary calculi; Z83.3 Family history of diabetes mellitus; Z82.49 Family history of ischemic heart disease and other diseases of the circulatory system; Z80.8 Family history of malignant neoplasm of other organs or systems
CPT/HCPCS: 96360; 99285; 36415; 93005; 97161; 97165; 85379; 80061; 80053; 82150; 83690; 84484; 85025; 85610; 85730; 80306; 71046; 70450; G0378 ×2; J7517

== ENCOUNTER → 2018-10-13 | Outpatient (CLI) | payer OTHER ==
--- NOTE | 2018-10-13 12:21 | CT ---
EXAMINATION TYPE: CT angio chest DATE OF EXAM: 10/13/2018 COMPARISON: CTA February 22, 2015 HISTORY: Thoracic aortic aneurysm w/o rupture CT DLP: 686.6 mGycm. Automated Exposure Control for Dose Reduction was Utilized. CONTRAST: CTA scan of the thorax is performed with IV Contrast, patient injected with 100 mL of Isovue 370, pul monary embolism protocol.. 3-D reconstructed images are created on an independent workstation and rev iewed. FINDINGS: LUNGS: The lungs are grossly clear, there is no concerning parenchymal mass or nodule identified. T here is no pleural effusion or pneumothorax seen. The tracheobronchial tree is patent. MEDIASTINUM: There is satisfactory enhancement of the pulmonary artery and its branches, there is no CT evidence for pulmonary embolism. There are no greater than 1 cm hilar or mediastinal lymph nodes. No pericardial effusion is seen. Main pulmonary artery measures 2.3 cm at bifurcation image 31. As cending aorta measures up to 0.9 cm in diameter axial image 33. Coronary artery calcification is rede monstrated which is noted marker for underlying coronary artery disease. Heart size is upper limits o f normal. OTHER: Small degree of bilateral gynecomastia is present similar to prior. IMPRESSION: Stable ascending aortic aneurysm up to 3.9 cm on current study
== END | disposition home or self-care (01) ==
LOC: RADCTMAIN 08:58
PROVIDERS: ATTEND Internal Medicine Interventional Cardiology
DX: I71.2 Thoracic aortic aneurysm, without rupture (principal)
CPT/HCPCS: 82565; 84520; 71275; 36415; Q9967

== ENCOUNTER → 2019-03-14 | Outpatient (CLI) | payer OTHER | END | disposition home or self-care (01) | LOC: LABPAT 15:55 | PROVIDERS: ATTEND Orthopaedic Surgery | DX: Z01.812 Encounter for preprocedural laboratory examination (principal) | CPT/HCPCS: 87070 ==

== ENCOUNTER → 2019-07-17 | Outpatient (CLI) | payer OTHER | END | disposition home or self-care (01) | LOC: LABWHC1 12:04 | PROVIDERS: ATTEND Orthopaedic Surgery | DX: U07.1 COVID-19 (principal); Z22.322 Carrier or suspected carrier of Methicillin resistant Staphylococcus aureus | CPT/HCPCS: 87070; 87635 ==

== ENCOUNTER 2019-07-20 14:06 | Day surgery (SDC) | payer OTHER ==
[2019-07-18 15:06] VITALS: BMI 25.5
--- NOTE | 2019-07-19 14:13 | HP ---
HISTORY AND PHYSICAL REASON FOR ADMISSION: Surgery is scheduled for 07/20/2019 HISTORY OF PRESENT ILLNESS: Rafiq Sosa is a 68-year-old patient seen with symptomatic left knee osteoarthritis. We discussed options for treatment. He elected to proceed with left total knee arthroplasty. Consent regarding the procedure was obtained. Medical clearance was provided by the [facility]. PAST MEDICAL HISTORY: Hypertension, hyperlipidemia. PAST SURGICAL HISTORY: Left knee arthroscopy. MEDICATIONS: Amlodipine, atorvastatin, fluoxetine, omeprazole, losartan. ALLERGIES: None. SOCIAL HISTORY: Denies tobacco use. PHYSICAL EXAMINATION: Evaluation of the left knee range of motion -3 to 130. Mild effusion. Tenderness medial joint line. Some crepitus along the medial patellofemoral compartments with range of motion. Ligaments stable. Hip rotation without pain. Distal neurovascular exam is intact. RADIOGRAPHS: Of his left knee revealed severe medial and moderate patellofemoral compartment osteoarthritis. IMPRESSION: 1. Left knee osteoarthritis. 2. Hypertension. 3. Hyperlipidemia. PLAN: Left total knee arthroplasty. Surgery is scheduled for 07/20/2019. MMODL / IJN: [id number] /
[~2019-07-20 14:06] MED LIST: ACETAMINOPHEN TAB 500 MG TAB PO ONE; DEXAMETHASONE SOD PHOSPHATE 10 MG/ML 1 ML VIAL IV ONE; HYDROmorphone 0.5 MG/0.5 ML SYRINGE IVP PRN; LIDOCAINE 1% (10MG/ML) FOR IV START INTRADERMA PRN; MELOXICAM 7.5 MG TAB PO ONE; ONDANSETRON 4 MG/2 ML VIAL IVP ONE; ROPIVACAINE 246.25 MG, EPINEPHrine 0.5 MG, KETOROLAC 30 MG, cloNIDine HCL/PF 80 MCG, WA... MISCELLANE ONE; SCOPOLAMINE 1.5MG/72HR PATCH TRANSDERM ONE; TRANEXAMIC ACID 1,000 MG in SODIUM CHLORIDE 0.9% 100 ML IVPB ONE
[2019-07-20] MEDS: LACTATED RINGERS 1,000 ML IV SCH ×2 (14:31→18:28)
[2019-07-20 14:33] LABS: Glucose,Whole Blood 115 mg/dL (75-99)
[2019-07-20] MEDS ORDERED: MIDAZOLAM 2 MG/2 ML VIAL IV ONE (14:50)
[2019-07-20 14:57] LABS: HCT 43.8 % (39.0-53.0); HGB 15.1 gm/dL (13.0-17.5); MCH 32.1 pg (25.0-35.0); MCHC 34.6 g/dL (31.0-37.0); MCV 92.6 fL (80.0-100.0); Mean Platelet Volume 8.5; Platelet Count 186 k/uL (150-450); RBC 4.72 m/uL (4.30-5.90); RDW 12.8 % (11.5-15.5); WBC 7.4 k/uL (3.8-10.6)
[2019-07-20 15:05] LABS: Calcium 9.7 mg/dL (8.4-10.2); Potassium 4.3 mmol/L (3.5-5.1)
[2019-07-20 15:09] LABS: Prothrombin Time 10.4 sec (9.0-12.0)
[2019-07-20] MEDS ORDERED: ROPIVACAINE 0.2%-NS ON-Q PUMP 1,090 MG, EMPTY PAIN BALL 1 EACH MISCELLANE PRN (15:17)
--- NOTE | 2019-07-20 15:17 | P.ANPRN ---
Procedure Note - Anesthesia - Nerve Block Performed Left Adductor Canal Date of Procedure: 07/20/19 Procedure Start Time: 14:49 Procedure Stop Time: 15:04 Location of Patient: PreOp Indication: Acute Post-Operative Pain, Requested by Surgeon (Dr Lewis) Sedation Type: Sedate with meaningful contact maintained Preparation: Sterile Prep, Sterile Dressing Position: Supine Catheter: Indwelling Needle Types: On-Q Needle Gauge: 21 Ultrasound used to visualize needle placement: Yes Ultrasound used to observe medication spread: Yes Injectate: 0.5% Ropivacaine (see comment for volume) (20cc) Blood Aspirated: No Pain Paresthesia on Injection Noted: No Resistance on Injection: Normal Image Stored and Saved: Yes Events: Uneventful and Well Tolerated
[2019-07-20] MEDS ORDERED: fentaNYL (PF) 50 MCG/ML 2 ML AMP ONE (15:18)
[2019-07-20] MEDS ORDERED: MIDAZOLAM 2 MG/2 ML VIAL ONE (15:18)
[2019-07-20] MEDS ORDERED: PROPOFOL 10 MG/ML 20 ML VIAL IV ONE (15:18)
[2019-07-20] MEDS ORDERED: ceFAZolin 3,000 MG in SODIUM CHLORIDE 0.9% IRRIGATIO 3,000 ML IRRIGATION ONE (15:46)
[2019-07-20] MEDS ORDERED: LACTATED RINGERS 1,000 ML IV ONE (15:53)
[2019-07-20] MEDS ORDERED: HYDROmorphone 0.5 MG/0.5 ML SYRINGE IVP PRN ×3 (17:25)
[2019-07-20] MEDS ORDERED: HYDROcodone/APAP 5-325MG 1 EACH TAB PO PRN ×2 (17:25)
[2019-07-20] MEDS ORDERED: ONDANSETRON 4 MG/2 ML VIAL IVP PRN (17:25)
[2019-07-20] MEDS ORDERED: NALOXONE 0.4 MG/ML 1 ML VIAL IV PRN (17:25)
--- NOTE | 2019-07-20 17:25 | P.OP ---
Date of Procedure: 07/20/19 Preoperative Diagnosis: Left knee osteoarthritis Postoperative Diagnosis: Left knee osteoarthritis Procedure(s) Performed: Left total knee arthroplasty Implants: 1. Depuy attune size 7 left cruciate-retaining cemented femur 2. Depuy attune size 7 cemented fixed tibial baseplate 3. Depuy attune size 7 fixed bearing cruciate retaining 10 mm polyethylene tibial insert 4. Depuy attune 41 mm all polyethylene cemented patella Anesthesia: regional (Adductor canal catheter), local, spinal Surgeon: Pro Armstrong Computer Repairer #1: Conrad Ellsworth Estimated Blood Loss (ml): 30 Pathology: none sent (Bone) Condition: stable Disposition: PACU Indications for Procedure: 68-year-old patient seen with significant left knee osteoarthritis. He had previously been scheduled for left total knee arthroplasty which was canceled secondary to the Covid 19 crisis. His symptoms had become progressively severely debilitating for him. He elected to proceed with total knee arthroplasty at this time. Operative Findings: See description of procedure Description of Procedure: Patient was taken to the operative suite after having an adductor canal catheter placed by the department of anesthesia. Patient underwent a spinal anesthetic by the department of anesthesia. Patient was given preoperative IV intake antibiotics and TXA. A well-padded tourniquet was placed about the left lower extremity. The lower extremity was then prepped and draped in the normal sterile orthopedic fashion. The extremity was elevated, a tourniquet was insufflated to 300. A standard anterior incision was made sharply through skin. Dissection was taken down through the subcutaneous soft tissues down to the extensor mechanism. A medial arthrotomy was performed, patella was everted and knee was flexed. There was advanced osteoarthritis noted. I introduced my distal intramedullary femoral drill. I then introduced the distal femoral cutting jig. Dontae FELDMAN secured the cutting jig with 2 pins. I held retractors in position while Dontae FELDMAN performed the distal femoral resection through the guide area we now removed her distal femoral cutting guide. We now placed our 4-in-1 femoral cutting block and positioned and it was secured with 2 pins by Dontae FELDMAN while I held the block in position. The distal femoral finishing was now completed. A proximal tibial cutting guide was positioned. I held the guide in the appropriate position with both hands well Dontae FELDMAN inserted stabilizing pins into the guide. Proximal tibial cut was made. We now placed a trial femoral component into position, along with an appropriate size tibial tray and insert. We now took the knee through range of motion and had full extension good flexion and good overall soft tissue balance noted. The patella was everted and stabilized with 2 towel clips held by Dontae FELDMAN while I performed a flush with patellar quad tendon utilizing a fresh sawblade. We templated the patella, appropriate drill holes were made. An appropriate trial patella was positioned, knee was taken through full range of motion with the patella tracking very nicely. The trial patella was removed. Drill holes were made through the femoral component. All trial components were removed after marking off the appropriate rotation of the tibia. Retractors were now positioned along the proximal tibia. An appropriate keel punch was made with the appropriate size tibial guide by myself on Dontae FELDMAN assisted by holding retractors. At this point appropriate size implants were chosen and opened. The joint was irrigated copiously with pulse lavage mechanical irrigation. The posterior capsule was infiltrated with local analgesic. The wound was irrigated with pulse lavage mechanical irrigation. We mixed antibiotic methylmethacrylate. We placed the knee into flexion. We placed multiple retractors assisted by Dontae FELDMAN to expose the proximal tibia. Once the methyl methacrylate was ready, the tibial component was cemented into place removing any excess methylmethacrylate form by both myself and Dontae FELDMAN. The femoral component was cemented into place removing the removing any excess methylmethacrylate performed by both myself and Dontae FELDMAN. We then inserted the appropriate size polyethylene tibial insert. We made sure that it was locked into position. We took the knee into full extension, and then back in a flexion making sure we had removed any excess methylmethacrylate. The patellar component was then cemented down and secured with clamp. Excess methylmethacrylate removed. We kept the knee in full extension, patellar clamp in position until methylmethacrylate had hardened. Once it had hardened the patellar clamp was removed. The knee was taken through full range of motion. The patella tracked nicely. There was good soft tissue balancing. The tourniquet was now released. Additional hemostasis was achieved via electrocautery. A second gram of TXA was given. The wound again was irrigated with pulse lavage mechanical irrigation. The superficial soft tissues were infiltrated local analgesic. The extensor mechanism was repaired with Vicryl. We checked the repair with range of motion and it was stable. The subcutaneous soft tissues were repaired with Vicryl in layers. The skin was approximated with pernio/Dermabond. Sterile dressings were applied followed by loose web roll and Gurdeep bandage. The patient was transferred to a bed, and taken to recovery in stable and satisfactory condition. Dontae FELDMAN assisted with this complex procedure.
[2019-07-20 17:34] VITALS: RESP 16
--- NOTE | 2019-07-20 17:52 | XR ---
EXAMINATION TYPE: XR knee limited LT DATE OF EXAM: 07/20/2019 COMPARISON: 02/22/2014 HISTORY: Left knee replacement TECHNIQUE: 2 view left knee FINDINGS: Tibial femoral components of in place. Small joint effusion is present. Postsurgical change s are within soft tissues. No acute fractures are evident. IMPRESSION: 1. No acute fracture post knee replacement.
[2019-07-20 18:29] LABS: Glucose,Whole Blood 121 mg/dL (75-99)
[2019-07-20] MEDS ORDERED: CYCLOBENZAPRINE 10 MG TAB PO PRN (19:56)
[2019-07-20 20:00] LABS: Glucose,Whole Blood 176 mg/dL (75-99)
[2019-07-20] MEDS ORDERED: ATORVASTATIN 40 MG TAB PO SCH (21:00)
[2019-07-20] MEDS: amLODIPine 5 MG TAB PO SCH (21:01)
[2019-07-20] MEDS: FLUoxetine HCL 20 MG CAP PO SCH (21:01)
[2019-07-20] MEDS: GABAPENTIN 100 MG CAP PO SCH (21:01)
[2019-07-20] MEDS: INSULIN ASPART (NovoLOG) 100 UNIT/ML VIAL SQ SCH (21:02)
[2019-07-20] MEDS: MYCOPHENOLATE MOFETIL 250 MG CAP PO SCH (21:02)
--- NOTE | 2019-07-20 21:08 | P.CONS ---
History of Present Illness - Reason for Consult Consult date: 07/20/19 medical mangement Requesting physician: Pro Armstrong - Chief Complaint left knee OA - History of Present Illness 68 year old male with hypertension , DM, lupus. patient admitted for scheduled left TKA, after failed conservative management. patient tolerated procedure well, denies any chest pain or trouble breathing. denies any headache, nausea or vomiting.. he tolerated PO intake. Pain is well controlled. patient reports suicidal thoughts many years ago, but nothing at this time or any time recently . patient recently diagnosed with DM , he is on metformin at home, tolerating well. he also reports history of lupus on celcept Review of Systems Pertinent positives as noted in HPI. All other systems were reviewed and are negative Past Medical History Past Medical History: Cancer, CVA/TIA, Diabetes Mellitus, GERD/Reflux, Hearing Disorder / Deafness, Hyperlipidemia, Hypertension, Osteoarthritis (OA), Renal Disease Additional Past Medical History / Comment(s): TIA's-no residual effects, legally blind, lupus, autoimmune retinopathy (retinitis pigmentosa) macular degeneration, melanoma back History of Any Multi-Drug Resistant Organisms: None Reported Past Surgical History: Orthopedic Surgery, Tonsillectomy Additional Past Surgical History / Comment(s): eye and ear surgeries, nephrolithiasis, deviated septum sx; Left knee meniscus; lacerations & repair 3 fingers on left hand, right mastoid surg. Past Anesthesia/Blood Transfusion Reactions: No Reported Reaction Past Psychological History: Anxiety Smoking Status: Never smoker Past Alcohol Use History: Occasional Past Drug Use History: Marijuana Additional Drug Use History / Comment(s): smokes marijuana 3 puffs at night to relax legs - Past Family History Father Family Medical History: CVA/TIA, Diabetes Mellitus, Hyperlipidemia, Hypertension Additional Family Medical History / Comment(s): aneursym Mother Additional Family Medical History / Comment(s): peripheral vascular disease Brother(s) Additional Family Medical History / Comment(s): brain cancer, vision problems Sister(s) Additional Family Medical History / Comment(s): knee replacements Medications and Allergies Home Medications Medication Instructions Recorded Confirmed Type Metoprolol Succinate [Toprol XL] 12.5 mg PO DAILY 03/18/14 07/20/19 History Mycophenolate Mofetil [Cellcept] 250 mg PO BID 03/18/14 07/20/19 History Omeprazole [PriLOSEC] 20 mg PO DAILY 03/18/14 07/20/19 History Atorvastatin [Lipitor] 40 mg PO HS 01/04/18 07/20/19 History Cholecalciferol [Vitamin D3 (25 1,000 unit PO DAILY 01/04/18 07/20/19 History Mcg = 1000 Iu)] Cyclobenzaprine [Flexeril] 10 mg PO BID PRN 01/04/18 07/20/19 History Dipyridamole-Aspirin 200-25 mg 1 cap PO BID 01/04/18 07/20/19 History [Aggrenox 25MG -200MG] FLUoxetine HCL [PROzac] 20 mg PO BID 01/04/18 07/20/19 History amLODIPine [Norvasc] 5 mg PO BID 01/04/18 07/20/19 History Ezetimibe [Zetia] 10 mg PO DAILY 08/17/18 07/20/19 History Gabapentin [Neurontin] 100 mg PO TID 08/17/18 07/20/19 History [place]-3 Fatty Acids/Fish Oil [Fish 2 each PO DAILY #0 08/17/18 07/20/19 History Oil 1,000 mg Softgel] Losartan [Cozaar] 50 mg PO DAILY #60 tab 08/18/18 07/20/19 Rx Ubidecarenone [Co Q-10] 100 mg PO DAILY 07/18/19 07/20/19 History metFORMIN HCL [Glucophage] 500 mg PO BID 07/18/19 07/20/19 History Allergies Allergy/AdvReac Type Severity Reaction Status Date / Time No Known Allergies Allergy Verified 07/20/19 14:19 Physical Exam Vitals: Vital Signs Temp Pulse Pulse Resp BP BP Pulse Ox 07/20/19 18:52 98.9 F 67 16 161/82 97 07/20/19 18:15 62 16 157/87 98 07/20/19 18:00 64 16 160/85 98 07/20/19 17:45 63 16 153/75 92 L 07/20/19 17:30 97.0 F L 67 16 174/82 97 07/20/19 14:25 97.2 F L 58 L 18 150/79 99 Intake and Output 07/20/19 07/20/19 07/20/19 06:59 14:59 22:59 Intake Total 500 751 Output Total 30 Balance 500 721 Intake: IV 500 751 Output: Estimated Blood Loss 30 Other: Weight 84.1 kg 84.1 kg Constitutional: No acute distress, conversant, pleasant Eyes: Anicteric sclerae, moist conjunctiva, no lid-lag Pupils equal round reactive to light ENMT: NC/AT Oropharynx clear, no erythema, or exudates Neck: Supple, FROM, no masses, or JVD No carotid bruits No thyromegaly Lungs: Clear to auscultation Clear to percussion Normal respiratory effort, no accessory muscle use Cardiovascular: Heart regular in rate and rhythm, No murmurs, gallops, or rubs No peripheral edema Abdominal: Soft Nontender, no guarding, rebound or rigidity Abdomen moving with respiration Normoactive bowel sounds No hepatomegaly, No splenomegaly No palpable mass No abdominal wall hernia noted Skin: Normal temperature, tone, texture, turgor No induration No subcutaneous nodules No rash, lesions No ulcers Extremities: left leg in surgical dressing looks dry intact and clean No digital cyanosis No clubbing Pedal pulses intact and symmetrical Radial pulses intact and symmetrical No calf tenderness Psychiatric: Alert and oriented to person, place and time Appropriate affect fair judgement Neuro Muscles Strength 5/5 in all 4 extremities , limited exam over left LE , due to recent surgery Sensation to light touch grossly present throughout Cranial nerves II-XII grossly intact No focal sensory deficits Lymphatics: no palpable cervical or supraclavicular , or inguinal lymph nodes Results CBC & Chem 7: 07/20/19 14:30 07/20/19 14:30 Labs: Abnormal Lab Results - Last 24 Hours (Table) 07/20/19 07/20/19 07/20/19 Range/Units 14:29 14:30 18:24 BUN 21 H (9-20) mg/dL Glucose 115 H (74-99) mg/dL POC Glucose (mg/dL) 115 H 121 H (75-99) mg/dL Assessment and Plan Assessment: 68 year old male with hypertension , DM, lupus. admitteed for scheduled left TKA. medicine consulted for management of hypertension , DM OA s/p TKA of the left knee , POD zero pain control and DVT PPX per orthopedics PT/OT hypertension resume home meds continue pain control notify our team if SBP>180 DM on oral hypoglycemic agents hold PO meds start on insulin sliding scale while hospitalized resume metformin upon discharge follow up BMP and CBC in AM Thank you for allowing us to participate in the care of this patient. Do not hesitate to contact us with questions. Someone can be reached from the [facility] hospitalist group at all hours of the day at [phone].
[2019-07-21] MEDS: LACTATED RINGERS 1,000 ML IV SCH ×2 (06:05→10:42)
[2019-07-21 06:28] VITALS: BP 119/61; PULSE 60; TEMP 98.1
[2019-07-21 07:14] LABS: Glucose,Whole Blood 159 mg/dL (75-99)
[2019-07-21 07:19] LABS: Basophils % (A) 0 %; Eosinophils % (A) 0 %; HCT 36.5 % (39.0-53.0); HGB 12.2 gm/dL (13.0-17.5); Lymphocytes # (A) 1.8 k/uL (1.0-4.8); Lymphocytes % (A) 15 %; MCH 31.2 pg (25.0-35.0); MCHC 33.4 g/dL (31.0-37.0); MCV 93.4 fL (80.0-100.0); Mean Platelet Volume 8.8; Monocytes # (A) 0.6 k/uL (0-1.0); Monocytes % (A) 5 %; Neutrophils # (A) 9.9 k/uL (1.3-7.7); Neutrophils % (A) 79 %; Platelet Count 170 k/uL (150-450); RBC 3.91 m/uL (4.30-5.90); RDW 12.9 % (11.5-15.5); WBC 12.5 k/uL (3.8-10.6)
[2019-07-21] MEDS ORDERED: PANTOPRAZOLE 40 MG TABLET PO SCH (07:30)
[2019-07-21] MEDS: INSULIN ASPART (NovoLOG) 100 UNIT/ML VIAL SQ SCH ×2 (07:36→12:32)
[2019-07-21] MEDS: GABAPENTIN 100 MG CAP PO SCH (07:37)
[2019-07-21] MEDS: FLUoxetine HCL 20 MG CAP PO SCH (07:37)
[2019-07-21] MEDS: amLODIPine 5 MG TAB PO SCH (07:38)
[2019-07-21] MEDS: MYCOPHENOLATE MOFETIL 250 MG CAP PO SCH (07:38)
[2019-07-21] MEDS ORDERED: METOPROLOL SUCCINATE (ER) 25 MG TAB.ER.24H PO SCH (09:00)
[2019-07-21] MEDS ORDERED: LOSARTAN 50 MG TAB PO SCH (09:00)
[2019-07-21] MEDS ORDERED: EZETIMIBE 10 MG TAB PO SCH (09:00)
[2019-07-21] MEDS ORDERED: ENOXAPARIN 30 MG/0.3 ML SYRINGE SQ SCH (09:00)
--- NOTE | 2019-07-21 10:59 | P.PN ---
Progress Note - Text The patient is status post, left adductor canal catheter placement. The catheter was placed for postoperative pain control, status post total [ left knee] arthroplasty. Ropivacaine 0.2% is infusing at 8 mLs per hour. The patient has no complaints of left lower extremity numbness or weakness. Patient's VAS score is 0 -10. Assessment: Patient's adductor canal catheter is in place and working appropriately. Plan: continue infusion and adjust it as needed.
--- NOTE | 2019-07-21 11:38 | P.PN ---
Subjective Progress Note Date: 07/21/19 Principal diagnosis: Status post left total knee arthroplasty Patient evaluated at bedside, he is doing very well. He has no acute pain. He did very well with physical therapy. He is interested in going home. He denies any chest pain, shortness of breath, lightheadedness, fever chills. Objective - Vital Signs Vital signs: Vital Signs Temp 98.1 F 07/21/19 06:26 Pulse 60 07/21/19 06:26 Resp 16 07/21/19 06:26 BP 119/61 07/21/19 06:26 Pulse Ox 98 07/21/19 06:26 Intake & Output 07/20/19 07/21/19 07/21/19 18:59 06:59 18:59 Intake Total 1251 580 Output Total 30 Balance 1221 580 Weight 84.1 kg 84.1 kg Intake: IV 1251 Intake, IV Titration 100 Amount ceFAZolin 2 gm In Sodium 100 Chloride 0.9% 50 ml @ 100 mls/hr IVPB Q8HR [facility] Rx# :[id number] Oral 480 Output: Estimated Blood Loss 30 - Exam Left lower extremity: Incision is clean, dry and intact. Minimal soft tissue swelling present. Calf is soft, no tenderness with palpation. Plantar flexion, dorsiflexion, EHL, FHL are intact. Dorsalis pedis pulses 2+, sensory exam to light touch is intact - Labs CBC & Chem 7: 07/21/19 06:33 07/20/19 14:30 Labs: Abnormal Lab Results - Last 24 Hours (Table) 07/20/19 07/20/19 07/20/19 Range/Units 14:29 14:30 18:24 WBC (3.8-10.6) k/uL RBC (4.30-5.90) m/uL Hgb (13.0-17.5) gm/dL Hct (39.0-53.0) % Neutrophils # (1.3-7.7) k/uL BUN 21 H (9-20) mg/dL Glucose 115 H (74-99) mg/dL POC Glucose (mg/dL) 115 H 121 H (75-99) mg/dL 07/20/19 07/21/19 07/21/19 Range/Units 19:59 06:33 07:05 WBC 12.5 H (3.8-10.6) k/uL RBC 3.91 L (4.30-5.90) m/uL Hgb 12.2 L (13.0-17.5) gm/dL Hct 36.5 L (39.0-53.0) % Neutrophils # 9.9 H (1.3-7.7) k/uL BUN (9-20) mg/dL Glucose (74-99) mg/dL POC Glucose (mg/dL) 176 H 159 H (75-99) mg/dL Assessment and Plan Assessment: Status post left total knee arthroplasty Plan: Pain control, plan for discharge on oral medication GI and DVT prophylaxis, aspirin 81 mg twice a day for a month Wound care instructions discussed Home physical therapy after discharge Medical recommendations Plan for discharge home today Time with Patient: Less than 30
[2019-07-21 11:39] LABS: Glucose,Whole Blood 220 mg/dL (75-99)
--- NOTE | 2019-07-21 11:43 | P.DS ---
Providers Date of admission: 07/20/2019 Expected date of discharge: 07/21/19 Attending physician: Pro Duran Consults: 07/20/19 17:25 Consult Physician Routine Consulting Provider: Brian Monterroso Consult Reason/Comments: Medical management Do you want consulting provider notified?: Yes Primary care physician: [facility] Hospital Course: Date of admission: 07/20/2019 Date of discharge: 07/21/2019 Admission diagnosis: Status post left total knee arthroplasty Discharge diagnosis: Same Attending physician: Dr. duran Surgical procedures: Left total knee arthroplasty Brief history: Patient is a 68-year-old male with a history of progressive primary left knee osteoarthritis. At this point patient has failed conservative treatment measures and has opted to proceed with a elective left total knee arthroplasty Hospital course: Details of patient's surgery can be found in operative report. Patient tolerated the procedure well and was subsequently transported to orthopedic floor. Patient's orthopeidc and medical care was provided daily. Patient had daily laboratory tests performed for evaluation of overall blood counts . Patient had daily physical therapy to include strengthening range of motion as well as education with walker ambulation. Patient had daily CPM usage as part of their physical therapy program. Patient was treated with Lovenox for their postoperative DVT prophylaxis during their inpatient stay. Patient was noted to have a relatively uneventful postoperative course. Patient reported satisfactory pain control with oral pain medications by postoperative day 0. Patient showed satisfactory progress with physical therapy. Patient moved steadily through the program and had no difficulty meeting the goals by postoper ative day 0. Given patient's otherwise satisfactory course and having met physical therapy goals, plan is to discharge patient home on postoperative day 1. Discharge condition/disposition: Patient will be discharged home in stable condition. Discharge medications: Instructions are given on resumption of patient's normal daily medications per primary care recommendation, in addition patient will be prescribed [place] 5 mg/325 mg, tramadol 50 mg, Colace 100 mg Discharge instructions: 1. Wound care and infection precautions, keep incision dry and covered while showering, no lotions, creams, moisturizers. No soaking, tubs, pools, hottubs. Do not scrub over the incision. 2. Weight-bear as tolerated with walker / cane until follow-up. 3. Ice and elevate when necessary. Do not exceed 20 minutes per hour with ice pack. 4. Utilize compression sleeve until seen at first follow up appointment. 5. Visiting nursing care. 6. Home physical therapy including home CPM. 7. Pain meds and anticoagulants per prescription. 8. Pain medication has potential to cause constipation. Increase oral fluid and fiber intake. Contact primary care provider if you have not had a bowel movement within 48 hours after discharge 9. No anti-inflammatory medication until discussed at first post operative visit, this including Motrin, Aleve, Mobic, Diclofenac. 10. Follow up in office at 2 weeks postop with Dontae Ellsworth PA-C 11. Follow up with your primary care doctor 7-10 days after discharge. 12. Contact [facility] with any questions, . Procedures: Left total knee arthroplasty Patient Condition at Discharge: Good Plan - Discharge Summary Discharge Rx Participant: Yes New Discharge Prescriptions: New Aspirin [Adult Low Dose Aspirin EC] 81 mg PO BID #60 tablet. Docusate [Colace] 100 mg PO DAILY #30 capsule Hydrocodone/Acetaminophen [[place] 5-325] 1 - 2 each PO Q6HR PRN #56 tab PRN Reason: Pain traMADol HCl [Ultram] 50 mg PO Q6H PRN #28 tab PRN Reason: Pain No Action Omeprazole [PriLOSEC] 20 mg PO DAILY Mycophenolate Mofetil [Cellcept] 250 mg PO BID Metoprolol Succinate [Toprol XL] 12.5 mg PO DAILY Dipyridamole-Aspirin 200-25 mg [Aggrenox 25MG -200MG] 1 cap PO BID Atorvastatin [Lipitor] 40 mg PO HS Cyclobenzaprine [Flexeril] 10 mg PO BID PRN PRN Reason: Muscle Spasm Cholecalciferol [Vitamin D3 (25 Mcg = 1000 Iu)] 1,000 unit PO DAILY amLODIPine [Norvasc] 5 mg PO BID FLUoxetine HCL [PROzac] 20 mg PO BID Gabapentin [Neurontin] 100 mg PO TID [place]-3 Fatty Acids/Fish Oil [Fish Oil 1,000 mg Softgel] 2 each PO DAILY #0 Ezetimibe [Zetia] 10 mg PO DAILY Losartan [Cozaar] 50 mg PO DAILY #60 tab metFORMIN HCL [Glucophage] 500 mg PO BID Ubidecarenone [Co Q-10] 100 mg PO DAILY Discharge Medication List Metoprolol Succinate [Toprol XL] 12.5 mg PO DAILY 03/18/14 [History] Mycophenolate Mofetil [Cellcept] 250 mg PO BID 03/18/14 [History] Omeprazole [PriLOSEC] 20 mg PO DAILY 03/18/14 [History] Atorvastatin [Lipitor] 40 mg PO HS 01/04/18 [History] Cholecalciferol [Vitamin D3 (25 Mcg = 1000 Iu)] 1,000 unit PO DAILY 01/04/18 [History] Cyclobenzaprine [Flexeril] 10 mg PO BID PRN 01/04/18 [History] Dipyridamole-Aspirin 200-25 mg [Aggrenox 25MG -200MG] 1 cap PO BID 01/04/18 [History] FLUoxetine HCL [PROzac] 20 mg PO BID 01/04/18 [History] amLODIPine [Norvasc] 5 mg PO BID 01/04/18 [History] Ezetimibe [Zetia] 10 mg PO DAILY 08/17/18 [History] Gabapentin [Neurontin] 100 mg PO TID 08/17/18 [History] [place]-3 Fatty Acids/Fish Oil [Fish Oil 1,000 mg Softgel] 2 each PO DAILY #0 08/17/18 [History] Losartan [Cozaar] 50 mg PO DAILY #60 tab 08/18/18 [Rx] Ubidecarenone [Co Q-10] 100 mg PO DAILY 07/18/19 [History] metFORMIN HCL [Glucophage] 500 mg PO BID 07/18/19 [History] Aspirin [Adult Low Dose Aspirin EC] 81 mg PO BID #60 tablet. 07/21/19 [Rx] Docusate [Colace] 100 mg PO DAILY #30 capsule 07/21/19 [Rx] Hydrocodone/Acetaminophen [[place] 5-325] 1 - 2 each PO Q6HR PRN #56 tab 07/21/19 [Rx] traMADol HCl [Ultram] 50 mg PO Q6H PRN #28 tab 07/21/19 [Rx] Follow up Appointment(s)/Referral(s): Conrad Ellsworth PAC [PHYSICIAN MANAGER [employer]ARKING] - 2 Weeks Patient Instructions/Handouts: *Surgery [facility] - On-Q Pain Pump Discharge Instructions, Joint Replacement Surgery (DC), Knee Replacement (DC) Activity/Diet/Wound Care/Special Instructions: 1. Continuous Passive Motion machine is at the patient's house already. 2. [facility] is working on setting up home care - patient to call them with any questions regarding home care and home physical therapy: [phone] Orthopedic Discharge Instructions: 1. Wound care and infection precautions, keep incision dry and covered while showering, no lotions, creams, moisturizers. No soaking, pools, hot tubs. Do not scrub over incision. 2. Weight-bear as tolerated with walker / cane until follow-up. 3. Ice and elevate when necessary. Do not exceed 20 minutes per hour with ice pack. 4. Utilize compression sleeve until seen at first follow up appointment. 5. Pain meds and anticoagulants per prescription. 6. Pain medication has potential to cause constipation. Increase oral fluid and fiber intake. Contact primary care provider if you have not had a bowel movement within 48 hours after discharge. 7. No anti-inflammatory medication until discussed at first post operative visit, this including Motrin, Aleve, Mobic, Diclofenac 8. Follow up in office at 2 weeks postop with Dontae Ellsworth PA-C 9. Follow up with your primary care doctor 7-10 days after discharge. 10. Contact [facility] with any questions, . Discharge Disposition: HOME WITH HOME HEALTH SERVICES
[2019-07-22] MEDS ORDERED: DIPYRIDAMOLE-ASPIRIN 200-25 MG 1 EACH CPMP.12HR PO SCH (09:00)
== END 2019-07-21 14:37 | disposition home or self-care (01) ==
LOC: OR 14:06 → 5NMEDONC 17:22 → OR 07-21 14:37
PROVIDERS: ATTEND Orthopaedic Surgery
DX: M17.12 Unilateral primary osteoarthritis, left knee (principal); I10 Essential (primary) hypertension; E78.2 Mixed hyperlipidemia; M32.9 Systemic lupus erythematosus, unspecified; H54.8 Legal blindness, as defined in USA; I71.2 Thoracic aortic aneurysm, without rupture; F17.210 Nicotine dependence, cigarettes, uncomplicated; E11.9 Type 2 diabetes mellitus without complications; H91.90 Unspecified hearing loss, unspecified ear; M19.90 Unspecified osteoarthritis, unspecified site; H35.52 Pigmentary retinal dystrophy; F41.9 Anxiety disorder, unspecified; Z86.73 Personal history of transient ischemic attack (TIA), and cerebral infarction without residual deficits; Z79.82 Long term (current) use of aspirin; Z79.84 Long term (current) use of oral hypoglycemic drugs; Z79.899 Other long term (current) drug therapy; Z90.89 Acquired absence of other organs; Z87.442 Personal history of urinary calculi; Z85.820 Personal history of malignant melanoma of skin; Z82.49 Family history of ischemic heart disease and other diseases of the circulatory system; Z83.3 Family history of diabetes mellitus; Z82.3 Family history of stroke; Z80.8 Family history of malignant neoplasm of other organs or systems; Z82.69 Family history of other diseases of the musculoskeletal system and connective tissue
CPT/HCPCS: 97162; 80048; 85025; 85027; 85610; 73560; 27447; 64448; J2250; J1100; J0690 ×3; J2405; J7517 ×2; J3010; J1650; J2704; J1170; J2795; 76942

== ENCOUNTER 2019-08-27 14:02 | Day surgery (SDC) | payer OTHER ==
[2019-08-23 16:51] VITALS: BMI 25.1
--- NOTE | 2019-08-26 15:33 | HP ---
HISTORY AND PHYSICAL Surgery 08/27/2019 Rafiq Sosa is a 68-year-old patient seen with left knee injury consistent with quadriceps tendon rupture/tear with history of previous total knee arthroplasty. I recommended open repair left quadriceps tendon tear. I reviewed the procedure, risks, complications, benefits, recovery, he was agreeable. Consent was obtained. PAST MEDICAL HISTORY: Hypertension, hyperlipidemia, gastroesophageal reflux disease. PAST SURGICAL HISTORY: Left knee arthroscopy, left total knee arthroplasty. DAILY MEDICATIONS: Amlodipine, atorvastatin, fluoxetine, losartan, omeprazole. ALLERGIES: None. SOCIAL HISTORY: Denies tobacco use. PHYSICAL EXAMINATION: Evaluation of the left knee: He has previous well-healed incision. He is unable to extend his knee. There is a defect in the medial retinaculum quadriceps area. Tenderness in that area is noted. Ligaments are stable. Distal neurovascular exam is intact. Tang Prieto negative. X-rays of his left knee revealed a stable appearing total knee arthroplasty. IMPRESSION: 1. Left quadriceps tendon tear/medial retinacular tear. 2. History of left total knee arthroplasty. 3. Hypertension. 4. Hyperlipidemia. 5. Gastroesophageal reflux disease. PLAN: Open repair left quadriceps tendon tear. MMODL / IJN: [id number] /
[~2019-08-27 14:02] MED LIST changes: -ACETAMINOPHEN TAB 500 MG TAB PO ONE; +LACTATED RINGERS 1,000 ML IV SCH; -LIDOCAINE 1% (10MG/ML) FOR IV START INTRADERMA PRN; -MELOXICAM 7.5 MG TAB PO ONE; +MIDAZOLAM 2 MG/2 ML VIAL IV PRN; -ROPIVACAINE 246.25 MG, EPINEPHrine 0.5 MG, KETOROLAC 30 MG, cloNIDine HCL/PF 80 MCG, WA... MISCELLANE ONE; -SCOPOLAMINE 1.5MG/72HR PATCH TRANSDERM ONE; -TRANEXAMIC ACID 1,000 MG in SODIUM CHLORIDE 0.9% 100 ML IVPB ONE
[2019-08-27] MEDS ORDERED: LIDOCAINE 1% (10MG/ML) FOR IV START INTRADERMA ONE (14:46)
[2019-08-27 14:49] LABS: Glucose,Whole Blood 119 mg/dL (75-99)
[2019-08-27] MEDS ORDERED: fentaNYL (PF) 50 MCG/ML 2 ML AMP ONE (14:58)
[2019-08-27] MEDS ORDERED: MIDAZOLAM 2 MG/2 ML VIAL ONE (14:58)
[2019-08-27] MEDS ORDERED: PROPOFOL 10 MG/ML 20 ML VIAL IV ONE (14:58)
[2019-08-27] MEDS ORDERED: diphenhydrAMINE 50 MG/ML 1 ML VIAL ONE (14:58)
[2019-08-27] MEDS ORDERED: NALOXONE 0.4 MG/ML 1 ML VIAL IV PRN (15:58)
[2019-08-27] MEDS ORDERED: HYDROcodone/APAP 5-325MG 1 EACH TAB PO PRN (15:58)
[2019-08-27] MEDS ORDERED: ONDANSETRON 4 MG/2 ML VIAL IVP PRN (15:58)
[2019-08-27] MEDS ORDERED: HYDROmorphone 0.5 MG/0.5 ML SYRINGE IVP PRN ×3 (15:58)
--- NOTE | 2019-08-27 15:58 | P.OP ---
Date of Procedure: 08/27/19 Preoperative Diagnosis: Left knee quadriceps tendon tear Postoperative Diagnosis: Left knee quadriceps tendon and medial retinacular tears Procedure(s) Performed: Left knee open quadriceps tendon and medial retinacular repair Anesthesia: spinal Surgeon: Pro Armstrong Resource Economist #1: Conrad Ellsworth Estimated Blood Loss (ml): 15 Pathology: none sent Condition: stable Disposition: PACU Indications for Procedure: 68-year-old patient who had undergone a left total knee arthroplasty. He injured his knee traumatically and was found to have a clinical quadriceps tendon tear. I recommended open repair. Patient was agreeable and consent was obtained. Operative Findings: see description of procedure Description of Procedure: The patient was taken to the operative suite. The patient received preoperative IV antibiotics. Patient won't a spinal anesthetic by the department anesthesia. A well-padded tourniquet was placed on the proximal left thigh. The left lower extremity was prepped and draped in the normal sterile orthopedic fashion. The extremity was elevated and tourniquet insufflated to 300. I made an incisional previous cicatrix sharply through skin. We dissected down to extensor mechanism. We immediately encountered a hemarthrosis was evacuated. We noted a quadriceps tendon tear as well as a medial retinacular tear almost all the way down to the distal patellar tendon area. We carefully exposed the soft tissues. We irrigated the joint out with pulse lavage irrigation. We used Irresept. I now with assistive Dontae FELDMAN began meticulously repairing the quadriceps tendon and medial retinacular tears utilizing multiple interrupted #2 Ethibond sutures. We now checked the repair with full flexion and extension. We had good solid repair of both quadriceps tendon and medial retinaculum. We now repaired the subcu soft tissues in layers with 2-0 Vicryl. The skin margins were approximated with subcuticular running Vicryl suture followed by exofin skin tape. Sterile dressings were applied. The tourniquet was released and immediate capillary refill the entire extremity noted. We applied sterile web roll followed by an Gurdeep bandage. The extremity was now placed into a knee immobilizer. The patient awakened, transferred to a bed and then recovery stable condition. Dontae FELDMAN assisted with the procedure.
[2019-08-27 16:47] LABS: Glucose,Whole Blood 94 mg/dL (75-99)
[2019-08-27] MEDS ORDERED: CYCLOBENZAPRINE 10 MG TAB PO PRN (18:42)
[2019-08-27 20:08] LABS: Glucose,Whole Blood 233 mg/dL (75-99)
[2019-08-27] MEDS: FLUoxetine HCL 20 MG CAP PO SCH (20:49)
[2019-08-27] MEDS: LACTATED RINGERS 1,000 ML IV SCH (20:49)
[2019-08-27] MEDS: GABAPENTIN 100 MG CAP PO SCH (20:49)
[2019-08-27] MEDS: metFORMIN 500 MG TAB PO SCH (20:49)
[2019-08-27] MEDS: ENOXAPARIN 30 MG/0.3 ML SYRINGE SQ SCH (20:49)
[2019-08-27] MEDS: amLODIPine 5 MG TAB PO SCH (20:49)
[2019-08-27] MEDS: HYDROcodone/APAP 5-325MG 1 EACH TAB PO PRN (20:50)
[2019-08-27] MEDS: INSULIN ASPART (NovoLOG) 100 UNIT/ML VIAL SQ SCH (20:50)
[2019-08-27] MEDS ORDERED: ATORVASTATIN 40 MG TAB PO SCH (21:00)
[2019-08-27] MEDS: DIPYRIDAMOLE-ASPIRIN 200-25 MG 1 EACH CPMP.12HR PO SCH (21:08)
--- NOTE | 2019-08-28 02:28 | CONS ---
CONSULTATION DATE OF SERVICE: 08/27/2019 REASON FOR CONSULTATION: Advice regarding diabetes and other multiple medical issues requested by Dr. Armstrong. HISTORY OF PRESENT ILLNESS: This 68-year-old gentleman with a past medical history of CVA, TIA, diabetes mellitus, history of GERD, hypertension, hyperlipidemia, history of DJD, history of sleep apnea being followed by [facility] in [place] was admitted after left knee open quadriceps tendon and medial retinacular repair. The patient is being closely monitored. There is no history of any fever, rigors. No history of headache, loss of consciousness, or seizures at this time. PAST MEDICAL HISTORY: History of CVA, TIA, diabetes mellitus type 2, history of GERD, hypertension, hyperlipidemia, sleep apnea, history of melanoma. MEDICATIONS: Home medications are: 1. Ultram 50 mg q.6 p.r.n. 2. Glucophage 500 mg p.o. b.i.d. 3. Norvasc 5 mg p.o. b.i.d. 4. Coenzyme Q 100 mg p.o. daily. 5. Prilosec 20 mg p.o. daily. 6. [place] 3 fatty acids 2 daily. 7. CellCept 250 mg p.o. b.i.d. 8. Toprol-XL 12.5 mg p.o. daily. 9. Cozaar 50 mg p.o. daily. 10.Neurontin 100 mg p.o. t.i.d. 11.Prozac 20 mg p.o. b.i.d. 12.Zetia 10 mg p.o. daily. 13.Dok 100 mg p.o. daily. 14.Aggrenox 25/200 one p.o. b.i.d. 15.Flexeril 10 mg b.i.d. p.r.n. 16.Vitamin D3, 1000 units daily. 17.Lipitor 40 mg at bedtime. ALLERGIES: None. FAMILY HISTORY: History of CVA, TIA, diabetes, hypertension, hyperlipidemia, history of aneurysm. SOCIAL HISTORY: History of alcohol, history of THC. No history of smoking. REVIEW OF SYSTEMS: ENT: No diminished hearing or diminished vision. CARDIOVASCULAR SYSTEM: No angina. RESPIRATORY SYSTEM: No cough or hemoptysis. GI: No nausea. : No dysuria. NERVOUS SYSTEM: No numbness or weakness. ALLERGY IMMUNOLOGY: No asthma. MUSCULOSKELETAL: As mentioned earlier. HEMATOLOGY: No history of anemia. ENDOCRINE: Diabetes. CONSTITUTIONAL: As mentioned earlier. DERMATOLOGY: Negative. RHEUMATOLOGY: As mentioned earlier. PSYCHIATRY: Negative. PHYSICAL EXAMINATION: The patient is alert and oriented x3. Pulse is 69, blood pressure 132/81, respiration 18, temperature 97.8, pulse ox 98% on room air. HEENT: Conjunctivae normal. Oral mucosa moist. NECK: No jugular venous distention. No carotid bruit. No lymph node enlargement. CARDIOVASCULAR: S1, S2 muffled. RESPIRATORY: Breath sounds diminished in the bases. No rhonchi, no crackles. ABDOMEN: Soft, nontender. LEGS: Status post knee surgery. NERVOUS SYSTEM: Higher function as mentioned. Moves all 4 limbs. No focal motor or sensory deficits. LYMPHATICS: No lymphadenopathy of the neck, axillae or groin. SKIN: No ulcer, rash or bleeding. JOINTS: No active deforming arthropathy. LABS: Accu-Cheks 119, 94, and 233. Other labs are WBC 12.5, hemoglobin 12.2. The coags are normal. Chemistry showed glucose 233. Other labs are noted. ASSESSMENT: 1. Status post left knee open quadriceps tendon and medial retinacular repair for left knee quadriceps tendon tear. 2. History of cerebrovascular accident, transient ischemic attack. 3. Diabetes mellitus type 2. 4. History of gastroesophageal reflux disease. 5. Hypertension. 6. Hyperlipidemia. 7. History of degenerative joint disease. 8. Sleep apnea. 9. History of melanoma. 10.History of autoimmune retinopathy, retinitis pigmentosa. 11.History of macular degeneration. 12.History of degenerative joint disease. 13.History of anxiety. 14.FULL CODE. RECOMMENDATIONS AND DISCUSSION: In this 68-year-old gentleman who presented with multiple medical issues, at this time I recommend to continue the current medications, continue symptomatic treatment. Otherwise at this time resume the home medications and continue the metformin. Accu- Cheks a.c. and at bedtime and NovoLog scale. We will follow the patient closely with you. The patient may be asked to follow with the primary physician closely after discharge. Thank you for letting us participate in the care of this patient. MMODL / IJN: [id number] /
[2019-08-28] MEDS: LACTATED RINGERS 1,000 ML IV SCH (03:40)
[2019-08-28] MEDS: HYDROcodone/APAP 5-325MG 1 EACH TAB PO PRN (03:41)
[2019-08-28 07:19] LABS: Glucose,Whole Blood 126 mg/dL (75-99)
[2019-08-28] MEDS: INSULIN ASPART (NovoLOG) 100 UNIT/ML VIAL SQ SCH ×2 (07:22→13:27)
[2019-08-28 07:59] VITALS: BP 177/87; PULSE 72; RESP 18; TEMP 97.9
[2019-08-28 08:38] LABS: Basophils % (A) 0 %; Eosinophils # (A) 0.1 k/uL (0-0.7); Eosinophils % (A) 1 %; HCT 36.8 % (39.0-53.0); HGB 12.7 gm/dL (13.0-17.5); Lymphocytes # (A) 2.6 k/uL (1.0-4.8); Lymphocytes % (A) 26 %; MCH 32.3 pg (25.0-35.0); MCHC 34.6 g/dL (31.0-37.0); MCV 93.4 fL (80.0-100.0); Mean Platelet Volume 7.5; Monocytes # (A) 0.4 k/uL (0-1.0); Monocytes % (A) 4 %; Neutrophils # (A) 6.8 k/uL (1.3-7.7); Neutrophils % (A) 68 %; Platelet Count 236 k/uL (150-450); RBC 3.95 m/uL (4.30-5.90); RDW 12.7 % (11.5-15.5)
[2019-08-28] MEDS ORDERED: NON FORMULARY DRUG (Ubidecarenone [Co Q-10] 100 MG) PO SCH (09:00)
[2019-08-28] MEDS ORDERED: METOPROLOL SUCCINATE (ER) 25 MG TAB.ER.24H PO SCH (09:00)
[2019-08-28] MEDS ORDERED: LOSARTAN 50 MG TAB PO SCH (09:00)
[2019-08-28] MEDS ORDERED: PANTOPRAZOLE 40 MG TABLET PO SCH (09:00)
[2019-08-28] MEDS ORDERED: EZETIMIBE 10 MG TAB PO SCH (09:00)
[2019-08-28] MEDS ORDERED: CHOLECALCIFEROL 1,000 UNIT TAB PO SCH (09:00)
[2019-08-28] MEDS ORDERED: DOCUSATE 100 MG CAP PO SCH (09:00)
[2019-08-28] MEDS: metFORMIN 500 MG TAB PO SCH (10:24)
[2019-08-28] MEDS: FLUoxetine HCL 20 MG CAP PO SCH (10:24)
[2019-08-28] MEDS: GABAPENTIN 100 MG CAP PO SCH (10:24)
[2019-08-28] MEDS: amLODIPine 5 MG TAB PO SCH (10:25)
[2019-08-28] MEDS: ENOXAPARIN 30 MG/0.3 ML SYRINGE SQ SCH (10:25)
[2019-08-28] MEDS: DIPYRIDAMOLE-ASPIRIN 200-25 MG 1 EACH CPMP.12HR PO SCH (10:26)
--- NOTE | 2019-08-28 10:47 | P.PN ---
Subjective Progress Note Date: 08/28/19 Principal diagnosis: status post left knee quadriceps tendon and medial retinacular repair patient is resting comfortably in his hospital bed, pain is well-controlled. He denies any chest pain or shortness of breath. Objective - Vital Signs Vital signs: Vital Signs Temp 97.9 F 08/28/19 07:00 Pulse 72 08/28/19 07:00 Resp 18 08/28/19 07:00 BP 177/87 08/28/19 07:00 Pulse Ox 99 08/28/19 07:00 Intake & Output 08/27/19 08/28/19 08/28/19 18:59 06:59 18:59 Intake Total 1000 1510 Output Total 15 1400 500 Balance 985 110 -500 Weight 80.2 kg Intake: IV 1000 Intake, IV Titration 1010 Amount Lactated Ringers 1,000 ml 960 @ 80 mls/hr IV .[id number] AMINAH Rx#:[id number] ceFAZolin 2 gm In Sodium 50 Chloride 0.9% 50 ml @ 100 mls/hr IVPB Q8H AMINAH Rx#: [id number] Oral 500 Output: Urine 1400 500 Estimated Blood Loss 15 Other: Voiding Method Toilet # Voids 1 - Exam Left lower extremity: Incision is clean, dry, and intact. There is minimal soft tissue swelling and ecchymosis surrounding the medial and lateral aspects of the incision.. Sensory exam to light touch throughout the extremity is intact, [dorsal pedis pulses 2+.] - Labs CBC & Chem 7: 08/28/19 07:42 Labs: Abnormal Lab Results - Last 24 Hours (Table) 08/27/19 08/27/19 08/28/19 Range/Units 14:47 20:06 07:18 RBC (4.30-5.90) m/uL Hgb (13.0-17.5) gm/dL Hct (39.0-53.0) % POC Glucose (mg/dL) 119 H 233 H 126 H (75-99) mg/dL 08/28/19 Range/Units 07:42 RBC 3.95 L (4.30-5.90) m/uL Hgb 12.7 L (13.0-17.5) gm/dL Hct 36.8 L (39.0-53.0) % POC Glucose (mg/dL) (75-99) mg/dL Assessment and Plan Assessment: Status post left knee quadriceps tendon/medial retinacular repair Plan: Pain control, patient has pain medication at home GI and DVT prophylaxis, aspirin 81 mg twice a day Activity restrictions and brace were discussed Toe-touch weightbearing at this time Wound care instructions discussed Plan for follow-up in 2 weeks Time with Patient: Less than 30
--- NOTE | 2019-08-28 10:50 | P.DS ---
Providers Date of admission: 08/27/2019 Expected date of discharge: 08/28/19 Attending physician: Pro Armstrong Consults: 08/27/19 15:58 Consult Physician Routine Consulting Provider: Nic Rojas Consult Reason/Comments: Medical management Do you want consulting provider notified?: Yes Primary care physician: [facility] Hospital Course: Date of admission: 08/27/2019 Date of discharge: 08/28/2019 Admission diagnosis: Status post left knee quadriceps tendon/medial retinacular repair Discharge diagnosis: Same Attending physician: Dr. Armstrong Surgical procedures: Left knee quadriceps tendon/medial retinacular repair Brief history: Patient is a 68-year-old female with a history of previous left total knee arthroplasty. Patient injured his left knee and was evaluated in the outpatient setting, it was determined he may need surgical fixation for a left knee quadriceps tendon and medial retinacular tear. Hospital course: Details of patient's surgery can be found in operative report. Patient tolerated the procedure well and was subsequently transported to orthopedic floor. Patient's orthopeidc and medical care was provided daily. Patient had daily laboratory tests performed for evaluation of overall blood counts. Patient had daily physical therapy to include strengthening range of motion as well as education with walker ambulation. Patient was treated with Lovenox for their postoperative DVT prophylaxis during their inpatient stay. Patient was noted to have a relatively uneventful postoperative course. Patient reported satisfactory pain control with oral pain medications by postoperative day 0. Patient showed satisfactory progress with physical therapy. Patient moved steadily through the program and had no difficulty meeting the goals by postoperative day 1. Given patient's otherwise satisfactory course and having met physical therapy goals, plan is to discharge patient home on postoperative day 1. Discharge condition/disposition: Patient will be discharged home in stable condition. Discharge medications: Instructions are given on resumption of patient's normal daily medications per primary care recommendation, in addition patient will be prescribed no new medications. Discharge instructions: 1. Wound care and infection precautions, keep incision dry and covered while showering, no lotions, creams, moisturizers. No soaking, tubs, pools, hottubs. Do not scrub over the incision. 2. Weight-bear as tolerated with walker / cane until follow-up. 3. Ice and elevate when necessary. Do not exceed 20 minutes per hour with ice pack. 4. Utilize compression sleeve until seen at first follow up appointment. 5. Visiting nursing care. 6. Home physical therapy 7. Pain meds and anticoagulants per prescription. 8. Pain medication has potential to cause constipation. Increase oral fluid and fiber intake. Contact primary care provider if you have not had a bowel movement within 48 hours after discharge 9. No anti-inflammatory medication until discussed at first post operative visit, this including Motrin, Aleve, Mobic, Diclofenac 10. Follow up in office at 2 weeks postop with Dontae Ellsworth PA-C 11. Follow up with your primary care doctor 7-10 days after discharge. 12. Contact [facility] with any questions, . Procedures: Left knee quadriceps tendon/medial retinacular repair Patient Condition at Discharge: Good Plan - Discharge Summary Discharge Rx Participant: No New Discharge Prescriptions: New Aspirin [Adult Low Dose Aspirin EC] 81 mg PO BID #60 tablet.dr Pham Action Omeprazole [PriLOSEC] 20 mg PO DAILY Mycophenolate Mofetil [Cellcept] 250 mg PO BID Metoprolol Succinate [Toprol XL] 12.5 mg PO DAILY Dipyridamole-Aspirin 200-25 mg [Aggrenox 25MG -200MG] 1 cap PO BID Atorvastatin [Lipitor] 40 mg PO HS Cyclobenzaprine [Flexeril] 10 mg PO BID PRN PRN Reason: Muscle Spasm Cholecalciferol [Vitamin D3 (25 Mcg = 1000 Iu)] 1,000 unit PO DAILY amLODIPine [Norvasc] 5 mg PO BID FLUoxetine HCL [PROzac] 20 mg PO BID Gabapentin [Neurontin] 100 mg PO TID [place]-3 Fatty Acids/Fish Oil [Fish Oil 1,000 mg Softgel] 2 each PO DAILY #0 Ezetimibe [Zetia] 10 mg PO DAILY Losartan [Cozaar] 50 mg PO DAILY #60 tab metFORMIN HCL [Glucophage] 500 mg PO BID Ubidecarenone [Co Q-10] 100 mg PO DAILY traMADol HCl [Ultram] 50 mg PO Q6H PRN #28 tab PRN Reason: Pain Docusate Sodium [Dok] 100 mg PO DAILY Discharge Medication List Metoprolol Succinate [Toprol XL] 12.5 mg PO DAILY 03/18/14 [History] Mycophenolate Mofetil [Cellcept] 250 mg PO BID 03/18/14 [History] Omeprazole [PriLOSEC] 20 mg PO DAILY 03/18/14 [History] Atorvastatin [Lipitor] 40 mg PO HS 01/04/18 [History] Cholecalciferol [Vitamin D3 (25 Mcg = 1000 Iu)] 1,000 unit PO DAILY 01/04/18 [History] Cyclobenzaprine [Flexeril] 10 mg PO BID PRN 01/04/18 [History] Dipyridamole-Aspirin 200-25 mg [Aggrenox 25MG -200MG] 1 cap PO BID 01/04/18 [History] FLUoxetine HCL [PROzac] 20 mg PO BID 01/04/18 [History] amLODIPine [Norvasc] 5 mg PO BID 01/04/18 [History] Ezetimibe [Zetia] 10 mg PO DAILY 08/17/18 [History] Gabapentin [Neurontin] 100 mg PO TID 08/17/18 [History] [place]-3 Fatty Acids/Fish Oil [Fish Oil 1,000 mg Softgel] 2 each PO DAILY #0 08/17/18 [History] Losartan [Cozaar] 50 mg PO DAILY #60 tab 08/18/18 [Rx] Ubidecarenone [Co Q-10] 100 mg PO DAILY 07/18/19 [History] metFORMIN HCL [Glucophage] 500 mg PO BID 07/18/19 [History] traMADol HCl [Ultram] 50 mg PO Q6H PRN #28 tab 07/21/19 [Rx] Docusate Sodium [Dok] 100 mg PO DAILY 08/23/19 [History] Aspirin [Adult Low Dose Aspirin EC] 81 mg PO BID #60 tablet. 08/28/19 [Rx] Follow up Appointment(s)/Referral(s): Conrad Ellsworth PAC [PHYSICIAN TRACTOR TECHNICIAN] - 09/14/19 2:30 pm [facility] [Primary Care Provider] - 1 Week Activity/Diet/Wound Care/Special Instructions: Orthopedic discharge instructions: 1. Wound care instructions were discussed 2. Brace instructions were discussed. 3. Activity level intersections were discussed 4. Aspirin 81 mg twice a day 5. Plan for follow-up at [facility] 2 weeks Discharge Disposition: HOME WITH HOME HEALTH SERVICES
[2019-08-28 11:28] LABS: Glucose,Whole Blood 146 mg/dL (75-99)
--- NOTE | 2019-08-28 23:20 | PN ---
PROGRESS NOTE DATE OF SERVICE: 08/28/2019 This 68-year-old gentleman admitted after left knee open quadriceps tendon repair is improving significantly. No chest pain. No palpitations. No fever. PHYSICAL EXAMINATION: On exam, alert and oriented x3. Pulse is 72, blood pressure 177/87, respirations 18, temperature 97.9 pulse ox 99% on room air. HEENT: Conjunctivae normal. NECK: No jugular venous distention. CARDIOVASCULAR: S1, S2 muffled. RESPIRATORY: Breath sounds diminished in the bases. No rhonchi, no crackles. ABDOMEN: Soft. LEGS: Status post knee surgery. No focal deficits. LABS: WBC 10, hemoglobin 12.7. ASSESSMENT: 1. Status post left knee open quadriceps tendon and medial retinacular repair of the left knee quadriceps tendon tear. 2. History of cerebrovascular accident, transient ischemic attack. 3. Diabetes mellitus type 2. 4. History of gastroesophageal reflux disease. 5. Hypertension. 6. Hyperlipidemia. 7. History of degenerative joint disease. 8. History of sleep apnea. 9. History of melanoma. 10.History of autoimmune retinopathy, retinitis pigmentosa. 11.History of macular degeneration. 12.History of degenerative joint disease. 13.History of anxiety. 14.FULL CODE. RECOMMENDATIONS AND DISCUSSION: Recommend to continue current medications. Continues symptomatic treatment. Resume the home medications and rest of the recommendations per Orthopedic Surgery. Closely follow with primary physician in the outpatient setting. Further recommendations to follow. MMODL / IJN: [id number] /
== END 2019-08-28 13:28 | disposition home health service (06) ==
LOC: OR 14:02 → 4SSUR 16:04 → OR 08-28 13:28
PROVIDERS: ATTEND Orthopaedic Surgery
DX: S76.112A Strain of left quadriceps muscle, fascia and tendon, initial encounter (principal); S86.812A Strain of other muscle(s) and tendon(s) at lower leg level, left leg, initial encounter; I10 Essential (primary) hypertension; E78.5 Hyperlipidemia, unspecified; K21.9 Gastro-esophageal reflux disease without esophagitis; M19.90 Unspecified osteoarthritis, unspecified site; G47.30 Sleep apnea, unspecified; H35.00 Unspecified background retinopathy; E11.319 Type 2 diabetes mellitus with unspecified diabetic retinopathy without macular edema; H35.52 Pigmentary retinal dystrophy; H35.30 Unspecified macular degeneration; F41.9 Anxiety disorder, unspecified; G25.81 Restless legs syndrome; M32.9 Systemic lupus erythematosus, unspecified; Z96.652 Presence of left artificial knee joint; Z79.899 Other long term (current) drug therapy; Z79.84 Long term (current) use of oral hypoglycemic drugs; Z79.02 Long term (current) use of antithrombotics/antiplatelets; Z79.891 Long term (current) use of opiate analgesic; Z86.73 Personal history of transient ischemic attack (TIA), and cerebral infarction without residual deficits; Z85.820 Personal history of malignant melanoma of skin; Z96.1 Presence of intraocular lens; Z82.3 Family history of stroke; Z83.3 Family history of diabetes mellitus; Z82.49 Family history of ischemic heart disease and other diseases of the circulatory system; Z83.438 Family history of other disorder of lipoprotein metabolism and other lipidemia; X58.XXXA Exposure to other specified factors, initial encounter
CPT/HCPCS: 27385; 97161; 85025; J2250; J1200; J1100; J0690 ×2; J2405; J3010; J1650 ×2; J2704

== ENCOUNTER 2020-07-06 16:07 | Emergency (ER) | payer OTHER ==
[2020-07-06] MEDS ORDERED: MORPHINE SULFATE 4 MG/ML SYRINGE IVP STA ×2 (16:12→17:56)
--- NOTE | 2020-07-06 16:15 | ED ---
Back Pain HPI - General Stated Complaint: Back Pain Time Seen by Provider: 07/06/20 16:08 Source: patient, RN notes reviewed Mode of arrival: EMS Limitations: no limitations - History of Present Illness Initial Comments: Patient is a 69-year-old male that presents to emergency department complaining of low back pain. He notes that he was out cutting wood with Dr. gould when he lifted his leg up over a log and felt a painful sensation in his lower back on the right side. He notes that the pain now is currently bandlike across his entire low back and is a 15 out of 10 while laying in bed. He notes that the pain is constant. He denied any back surgeries or recent injuries or trauma. He denied any weakness numbness tingling decreased range of motion or strength in his lower extremities he denied any bladder or bowel incontinence/retention. He denied chest pain shortness of breath headache nausea vomiting diarrhea constipation fever fatigue chills. Patient does report no vision in his right eye and majority loss of vision in his left eye. - Related Data Home Medications Medication Instructions Recorded Confirmed Metoprolol Succinate [Toprol XL] 12.5 mg PO DAILY 03/18/14 08/27/19 Omeprazole [PriLOSEC] 20 mg PO DAILY 03/18/14 08/27/19 mycophenolate mofetiL [Cellcept] 250 mg PO BID 03/18/14 08/27/19 Atorvastatin [Lipitor] 40 mg PO HS 01/04/18 08/27/19 Cholecalciferol [Vitamin D3 (25 1,000 unit PO DAILY 01/04/18 08/27/19 Mcg = 1000 Iu)] Cyclobenzaprine [Flexeril] 10 mg PO BID PRN 01/04/18 08/27/19 Dipyridamole-Aspirin 200-25 mg 1 cap PO BID 01/04/18 08/27/19 [Aggrenox 25MG -200MG] FLUoxetine HCL [PROzac] 20 mg PO BID 01/04/18 08/27/19 amLODIPine [Norvasc] 5 mg PO BID 01/04/18 08/27/19 Ezetimibe [Zetia] 10 mg PO DAILY 08/17/18 08/27/19 Gabapentin [Neurontin] 100 mg PO TID 08/17/18 08/27/19 [place]-3 Fatty Acids/Fish Oil [Fish 2 each PO DAILY #0 08/17/18 08/27/19 Oil 1,000 mg Softgel] Ubidecarenone [Co Q-10] 100 mg PO DAILY 07/18/19 08/27/19 metFORMIN HCL [Glucophage] 500 mg PO BID 07/18/19 08/27/19 Docusate Sodium [Dok] 100 mg PO DAILY 08/23/19 08/27/19 Previous Rx's Medication Instructions Recorded Losartan [Cozaar] 50 mg PO DAILY #60 tab 08/18/18 traMADol HCl [Ultram] 50 mg PO Q6H PRN #28 tab 07/21/19 Aspirin [Adult Low Dose Aspirin EC] 81 mg PO BID #60 tablet. 08/28/19 Cyclobenzaprine [Flexeril] 5 mg PO TID 15 Days #45 tablet 07/06/20 Allergies Allergy/AdvReac Type Severity Reaction Status Date / Time No Known Allergies Allergy Verified 07/06/20 16:16 Review of Systems ROS Statement: Those systems with pertinent positive or pertinent negative responses have been documented in the HPI. ROS Other: All systems not noted in ROS Statement are negative. Past Medical History Past Medical History: Cancer, CVA/TIA, Diabetes Mellitus, Eye Disorder, GERD/Reflux, Hyperlipidemia, Hypertension, Osteoarthritis (OA), Renal Disease, Sleep Apnea/CPAP/BIPAP Additional Past Medical History / Comment(s): Hx melanoma. TIA's - no residual effects. Legally blind, autoimmune retinopathy (retinities pigmentosa) bertram, macular degeneration bertram. Lupus. RLS. No current cpap use. Varicose veins. Total Lt knee, fell 08/25/19 w/ tear lt knee quadricep, wearing brace. History of Any Multi-Drug Resistant Organisms: None Reported Past Surgical History: Ear Surgery, Joint Replacement, Orthopedic Surgery, Tonsillectomy Additional Past Surgical History / Comment(s): eye and ear surgeries, nephrolithiasis, deviated septum sx; Left knee meniscus; broke 3 fingers on left hand. Total Lt knee 07/20/19. Past Anesthesia/Blood Transfusion Reactions: No Reported Reaction Past Psychological History: Anxiety Past Alcohol Use History: Rare Past Drug Use History: Marijuana Additional Drug Use History / Comment(s): smokes marijuana 3 puffs at night to relax legs occ - Past Family History Father Family Medical History: CVA/TIA, Diabetes Mellitus, Hyperlipidemia, Hypertension Additional Family Medical History / Comment(s): aneursym Mother Additional Family Medical History / Comment(s): peripheral vascular disease Brother(s) Family Medical History: Cancer Additional Family Medical History / Comment(s): brain cancer, vision problems Sister(s) Additional Family Medical History / Comment(s): knee replacements General Exam General appearance: alert, in no apparent distress Head exam: Present: atraumatic, normocephalic, normal inspection Eye exam: Present: normal appearance, PERRL, EOMI. Absent: scleral icterus, conjunctival injection, periorbital swelling Neck exam: Present: normal inspection. Absent: tenderness, meningismus, lymphadenopathy Respiratory exam: Present: normal lung sounds bilaterally. Absent: respiratory distress, wheezes, rales, rhonchi, stridor Cardiovascular Exam: Present: regular rate, normal rhythm, normal heart sounds. Absent: systolic murmur, diastolic murmur, rubs, gallop, clicks Extremities exam: Present: normal inspection, full ROM, normal capillary refill. Absent: tenderness, pedal edema, joint swelling, calf tenderness Back exam: Present: normal inspection, tenderness (Across the low back.) Neurological exam: Present: alert, oriented X3, CN II-XII intact Psychiatric exam: Present: normal affect, normal mood Skin exam: Present: warm, dry, intact, normal color. Absent: rash Course Vital Signs 07/06/20 16:13 Temperature 98 F Pulse Rate 62 Respiratory 18 Rate Blood Pressure 155/76 O2 Sat by Pulse 98 Oximetry Medical Decision Making - Medical Decision Making 69-year-old male complaining of back pain area X-ray of the lumbar spine, 4 mg of morphine, saline lock ordered. X-ray negative for any acute fractures or dislocations. 125 mg methylprednisone, 60 mg of Norflex, 4 mg morphine ordered. Case discussed with Dr. Avelar, patient can discharge home. - Radiology Data Radiology results: report reviewed, image reviewed X-ray of the lumbar spine: Mild spondylosis at L4-L5. No fracture no adverse change. Disposition Clinical Impression: Mechanical back pain, Strain of lumbar region Disposition: HOME SELF-CARE Condition: Stable Instructions (If sedation given, give patient instructions): Acute Low Back Pain (ED) Additional Instructions: Please return to the Emergency Department if symptoms worsen or any other concerns. Follow-up primary care in 3-5 days. Take a muscle relaxer as prescribed to help with back spasms. Avoid any strenuous activity or lifting for the next several weeks to allow bacterial. Can take [id number] anti-inflammatories for pain control. Prescriptions: Cyclobenzaprine [Flexeril] 5 mg PO TID 15 Days #45 tablet Is patient prescribed a controlled substance at d/c from ED?: No Referrals: [facility],Clinic [Primary Care Provider] - 1-2 days Time of Disposition: 18:00
[2020-07-06 16:16] VITALS: BP 155/76; PULSE 62; RESP 18; TEMP 98
--- NOTE | 2020-07-06 17:14 | XR ---
EXAMINATION TYPE: XR lumbar spine 2 or 3V DATE OF EXAM: 07/06/2020 COMPARISON: 11/02/2013 HISTORY: Back pain TECHNIQUE: 3 views FINDINGS: Vertebra have normal alignment. There is narrowing of L4-5 disc space with spur formation. Posterior elements are intact. There is no compression fracture. Sacroiliac joints are intact. IMPRESSION: Mild spondylosis at L4-5. No fracture. No adverse change.
[2020-07-06] MEDS ORDERED: methylPREDNISolone SOD SUCCI 125 MG/2 ML VIAL IM ONE (17:45)
[2020-07-06] MEDS ORDERED: ORPHENADRINE 30 MG/ML 2 ML VIAL IM STA (17:55)
== END 2020-07-06 19:15 | disposition home or self-care (01) ==
LOC: EC 16:07
DX: S39.012A Strain of muscle, fascia and tendon of lower back, initial encounter (principal); E11.9 Type 2 diabetes mellitus without complications; E78.5 Hyperlipidemia, unspecified; I10 Essential (primary) hypertension; K21.9 Gastro-esophageal reflux disease without esophagitis; Z90.09 Acquired absence of other part of head and neck; F12.90 Cannabis use, unspecified, uncomplicated; M19.90 Unspecified osteoarthritis, unspecified site; G47.33 Obstructive sleep apnea (adult) (pediatric); Z99.81 Dependence on supplemental oxygen; Z79.84 Long term (current) use of oral hypoglycemic drugs; Z85.820 Personal history of malignant melanoma of skin; Z86.73 Personal history of transient ischemic attack (TIA), and cerebral infarction without residual deficits; X58.XXXA Exposure to other specified factors, initial encounter
CPT/HCPCS: 72100; 99283; J2270; J2360; J2930

== ENCOUNTER → 2020-07-22 | Outpatient (CLI) | payer OTHER ==
--- NOTE | 2020-07-23 10:01 | P.ARTDOP ---
Arterial Doppler LOWER EXTREMITY ARTERIAL DOPPLER: DATE OF SERVICE: 07/22/2020 Reason for study: Leg pain. Doppler waveforms: Multiphasic bilaterally throughout with normal toe wave forms. Pulse volume recording: []. Pressure gradients: None. Ankle-brachial indices: Greater than 1 bilaterally. Toe brachial indices: 0.72 on the right, 0.73 on the left Impression: Normal study.
== END | disposition home or self-care (01) ==
LOC: RADUSWWP 13:31
PROVIDERS: ATTEND Physician Assistant
DX: M79.661 Pain in right lower leg (principal); M79.662 Pain in left lower leg
CPT/HCPCS: 93922; 93923

== ENCOUNTER → 2020-12-29 | Outpatient (CLI) | payer OTHER ==
--- NOTE | 2020-12-29 11:57 | CT ---
CT CHEST FOR PULMONARY EMBOLISM. EXAMINATION TYPE: CT angio chest DATE OF EXAM: 12/29/2020 INDICATION: Thoracic aortic aneurysm CT DLP: 614.3 mGycm, Automated exposure control for dose reduction was used. CONTRAST: Patient injected with 100 mL of Isovue 370. COMPARISON: 10/13/2018 TECHNIQUE: CT of the chest is performed on a spiral scan at 2 mm thick sections. Study is performed with intravenous contrast timed for evaluation for thoracic aorta. This will limit additional portio ns of the evaluation. 3-D MIP images reconstructed by the technologist are reviewed on the computer in the coronal and sagittal planes. FINDINGS: No persistent filling defects are evident to suggest an acute pulmonary embolism. Thoracic aorta below the diaphragm is 2.2 cm. Thoracic aorta at the aortic arch is 3.2 cm. The thorac ic aorta. The aortic root is 3.7 cm No mediastinal or hilar adenopathy enlarged by CT criteria is evident. The ascending aorta diameter at the level of the main pulmonary artery is 3.8 cm. Previous measurement 3.9 cm. The main pulmonary artery diameter at the bifurcation is 2.5 cm. Coronary artery calcification is present. Lung windows are clear. Limited CT section through the upper abdomen are unremarkable. IMPRESSIONS: 1. Mild fusiform prominence ascending thoracic aorta. No interval dilatation is evident
== END | disposition home or self-care (01) ==
LOC: RADCTMAIN 08:06
PROVIDERS: ATTEND Internal Medicine Interventional Cardiology
DX: I71.2 Thoracic aortic aneurysm, without rupture (principal)
CPT/HCPCS: 82565; 84520; 71275; 36415; Q9967

== ENCOUNTER → 2021-04-14 | Outpatient (CLI) | payer OTHER ==
--- NOTE | 2021-04-14 09:27 | CT ---
EXAMINATION TYPE: CT chest wo con DATE OF EXAM: 04/14/2021 COMPARISON: 12/29/2020 HISTORY: Bronchietasis CT DLP: 510 mGycm. Automated Exposure Control for Dose Reduction was Utilized. TECHNIQUE: CT scan of the thorax is performed without IV contrast. FINDINGS: LUNGS: The lungs are grossly clear, there is evidence of pneumonia. There is no pleural effusion or pneumothorax seen. The tracheobronchial tree is patent. Subpleural nodule seen superior segment lef t lower lobe posteriorly measures 5 mm likely benign there remains mild basilar Central bronchiectasi s. There are couple 2 to millimeter subpleural nodule seen posteriorly superior segment right lower l obe. MEDIASTINUM: Lack of IV contrast is noted to limit evaluation for mediastinal and especially hilar ad enopathy. There are no definitive greater than 1 cm hilar or mediastinal lymph nodes. Atherosclerotic change of the aorta and coronary arteries with mild aneurysmal dilation of the ascending aorta measu ring 4.2 cm stable from prior exam. Heart size stable. No sizable pericardial effusion. OTHER: Hypertrophic and degenerative changes spine. Trace of a gynecomastia noted.. IMPRESSION: 1. Mild basilar Central bronchiectasis similar to prior exam. A stable 4.2 cm mild aneurysmal dilatio n ascending aorta. 2. Subpleural 5 mm or less nodule bilateral superior segment lower lobes have a benign appearance. 3. Coronary artery calcification.
== END | disposition home or self-care (01) ==
LOC: RADCTMAIN 08:26
PROVIDERS: ATTEND Internal Medicine Critical Care Medicine
DX: J47.9 Bronchiectasis, uncomplicated (principal); R91.1 Solitary pulmonary nodule; I25.10 Atherosclerotic heart disease of native coronary artery without angina pectoris
CPT/HCPCS: 71250

== ENCOUNTER 2021-05-11 11:31 | Day surgery (SDC) | payer OTHER ==
[2021-05-07 16:17] VITALS: BMI 27.1
[~2021-05-11 11:31] MED LIST changes: -DEXAMETHASONE SOD PHOSPHATE 10 MG/ML 1 ML VIAL IV ONE; -HYDROmorphone 0.5 MG/0.5 ML SYRINGE IVP PRN; -LACTATED RINGERS 1,000 ML IV SCH; -MIDAZOLAM 2 MG/2 ML VIAL IV PRN; -ONDANSETRON 4 MG/2 ML VIAL IVP ONE; +SODIUM CHLORIDE 0.9% 1,000 ML IV SCH
[2021-05-11 11:51] LABS: Glucose,Whole Blood 117 mg/dL (75-99)
[2021-05-11 11:53] VITALS: BP 163/77; PULSE 89; RESP 18; TEMP 98.4
--- NOTE | 2021-05-11 18:51 | P.EPPROC ---
- EP Procedure Note Electrophysiology Procedure Note: Diagnosis Syncope Twelve-lead EKG shows sinus rhythm normal MD narrow QRS normal ST segments normal QT interval Tilt table test per protocol Patient tilted upright at an angle of 70 per protocol. Baseline blood pressure in the supine position 147/76 mmHg pulse rate in the 50s Patient tilted upright at medical of 70 No change in heart rate and blood pressure for the next 40 minutes Patient laid supine at the end of procedure Impression normal 12-lead EKG Normal heart rate and blood pressure response to upright tilting
== END 2021-05-11 14:57 | disposition home or self-care (01) ==
LOC: CATHEP 11:31
PROVIDERS: ATTEND Internal Medicine Clinical Cardiac Electrophysiology
DX: R55 Syncope and collapse (principal); Z20.822 Contact with and (suspected) exposure to COVID-19
CPT/HCPCS: 87635; 93660

== ENCOUNTER 2021-06-26 13:30 | Emergency (ER) | payer OTHER ==
[2021-06-26 14:23] VITALS: BP 181/87; PULSE 64; RESP 18; TEMP 98.2
[2021-06-26] MEDS ORDERED: PROPARACAINE 0.5% OPHTH DROPS 15 ML BTL BOTH EYES STA (14:25)
[2021-06-26] MEDS ORDERED: FLUORESCEIN STRIPS 1 MG STRIP BOTH EYES ONE (14:49)
[2021-06-26] MEDS ORDERED: DIPH,PERTUS(ACELL)TETVAC-LF 0.5 ML VIAL IM ONE (15:16)
--- NOTE | 2021-06-26 15:27 | ED ---
General Adult HPI - General Chief complaint: Eye Problems Stated complaint: Lt Eye Injury Time Seen by Provider: 06/26/21 14:25 Source: patient Mode of arrival: ambulatory Limitations: no limitations - History of Present Illness Initial comments: Dictation was produced using [employer] dictation software. please excuse any grammatical, word or spelling errors. Chief Complaint: 70-year-old male presents to the emergency department after I injury History of Present Illness: 70-year-old male he has decreased vision already. He has history of retinitis pigmentosa. He walks with a cane and is legally blind. Patient states he was hit in the eye by the tip of a shovel while bending over. States it occurred approximately 12 PM. Patient states that his vision is unchanged. He feels like there is a foreign body sensation in his eye. Patient has very severely affected vision secondary to his chronic issues. Patient's left eye is status post implant. He has vision approximately 20/30 in the left eye. His right eye does not have implant and his right eye he can only see light. The ROS documented in this emergency department record has been reviewed and confirmed by me. Those systems with pertinent positive or negative responses have been documented in the HPI. All other systems are other negative and/or noncontributory. PHYSICAL EXAM: General Impression: Alert and oriented x3, not in acute distress HEENT: Normocephalic atraumatic, extra-ocular movements intact, pupils equal and reactive to light bilaterally, mucous membranes moist. Chest: Able to complete full sentences, no retractions, no tachypnea Musculoskeletal: Pulses present and equal in all extremities, no peripheral edema Motor: no focal deficits noted Neurological: CN II-XII grossly intact, no focal motor or sensory deficits noted Skin: Intact with no visualized rashes Psych: Normal affect and mood Eye exam: Able to see light out of both eyes, conjunctivitis of the sclera to the left eye, tearing, pupils equal round reactive symmetrical, there does appear to be conjunctival injury measuring 1 x 1 mm to the nasal portion of the left sclera, stating does not reveal Ruel sign, intraocular pressures measured to be approximately 18 mmHg. Symptoms relieved with proparacaine Left eye vision is 2024, right eye is only sensitive to light ED course: 70-year-old male presents with left eye injury. Patient has a corneal abrasion. Vital signs upon arrival are within acceptable limits. Patient does not have any findings to suggest globe rupture. He does have a severe corneal injury. Patient given prescription for erythromycin ointment. He is given outpatient follow-up with ophthalmology. Patient's tetanus is updated. - Related Data Home Medications Medication Instructions Recorded Confirmed Metoprolol Succinate [Toprol XL] 25 mg PO DAILY 03/18/14 05/11/21 Omeprazole [PriLOSEC] 20 mg PO DAILY 03/18/14 05/07/21 Atorvastatin [Lipitor] 40 mg PO HS 01/04/18 05/11/21 Cholecalciferol [Vitamin D3 (25 1,000 unit PO DAILY 01/04/18 05/07/21 Mcg = 1000 Iu)] Cyclobenzaprine [Flexeril] 10 mg PO BID PRN 01/04/18 05/07/21 FLUoxetine HCL [PROzac] 20 mg PO BID 01/04/18 05/11/21 amLODIPine [Norvasc] 5 mg PO BID 01/04/18 05/11/21 Ezetimibe [Zetia] 10 mg PO DAILY 08/17/18 05/11/21 Gabapentin [Neurontin] 100 mg PO QID 08/17/18 05/11/21 [place]-3 Fatty Acids/Fish Oil [Fish 1 each PO DAILY #0 08/17/18 05/07/21 Oil 1,000 mg Softgel] Ubidecarenone [Co Q-10] 200 mg PO DAILY 07/18/19 05/07/21 metFORMIN HCL [Glucophage] 500 mg PO QAM 07/18/19 05/11/21 Docusate Sodium [Dok] 100 mg PO DAILY 08/23/19 05/07/21 Zinc 50 mg PO DAILY 05/07/21 05/07/21 metFORMIN HCL 1,000 mg PO 1700 05/07/21 05/11/21 Previous Rx's Medication Instructions Recorded Losartan [Cozaar] 50 mg PO DAILY #60 tab 08/18/18 Aspirin [Adult Low Dose Aspirin EC] 81 mg PO BID #60 tablet. 08/28/19 Erythromycin Ophth Oint [Romycin 1 applic LEFT EYE DAILY #1 gm 06/26/21 Ophth Oint] Allergies Allergy/AdvReac Type Severity Reaction Status Date / Time No Known Allergies Allergy Verified 06/26/21 14:23 Review of Systems ROS Statement: Those systems with pertinent positive or pertinent negative responses have been documented in the HPI. ROS Other: All systems not noted in ROS Statement are negative. Past Medical History Past Medical History: Cancer, CVA/TIA, Diabetes Mellitus, Eye Disorder, GERD/Reflux, Hyperlipidemia, Hypertension, Osteoarthritis (OA), Renal Disease, Sleep Apnea/CPAP/BIPAP Additional Past Medical History / Comment(s): Hx melanoma. TIA's - no residual effects. Legally blind, autoimmune retinopathy (retinities pigmentosa) bilateral, macular degeneration. Lupus. RLS. No current cpap use. Varicose veins. History of Any Multi-Drug Resistant Organisms: None Reported Past Surgical History: Ear Surgery, Joint Replacement, Orthopedic Surgery, Tonsillectomy Additional Past Surgical History / Comment(s): Eye and ear surgeries, nephrolithiasis, deviated septum sx, left knee meniscus surgery, broke 3 fingers on left hand, total left knee replacement. Past Anesthesia/Blood Transfusion Reactions: No Reported Reaction Past Psychological History: PTSD Smoking Status: Never smoker Past Alcohol Use History: Occasional Past Drug Use History: Marijuana - Past Family History Father Additional Family Medical History / Comment(s): Aneursym. Mother Family Medical History: Vascular Disorder Additional Family Medical History / Comment(s): Peripheral vascular disease. Brother(s) Family Medical History: Cancer Additional Family Medical History / Comment(s): Brain cancer, vision problems. Sister(s) Additional Family Medical History / Comment(s): Knee replacements. General Exam Limitations: no limitations Course Vital Signs 06/26/21 14:18 Temperature 98.2 F Pulse Rate 64 Respiratory 18 Rate Blood Pressure 181/87 O2 Sat by Pulse 98 Oximetry Disposition Clinical Impression: Corneal abrasion Disposition: HOME SELF-CARE Condition: Fair Instructions (If sedation given, give patient instructions): Corneal Abrasion (ED) Additional Instructions: follow up with opthamologist of your choice as soon as possible Prescriptions: Erythromycin Ophth Oint [Romycin Ophth Oint] 1 applic LEFT EYE DAILY #1 gm Is patient prescribed a controlled substance at d/c from ED?: No Referrals: [facility],Clinic [Primary Care Provider] - 1-2 days Kayden Alonso MD [STAFF PHYSICIAN] - 1-2 days
[2021-06-26] MEDS ORDERED: ERYTHROMYCIN 5 MG/GM OPHTH OINT 3.5 GM TUBE LEFT EYE SCH (16:00)
== END 2021-06-26 15:49 | disposition home or self-care (01) ==
LOC: EC 13:30
DX: S05.02XA Injury of conjunctiva and corneal abrasion without foreign body, left eye, initial encounter (principal); H54.8 Legal blindness, as defined in USA; E11.9 Type 2 diabetes mellitus without complications; K21.9 Gastro-esophageal reflux disease without esophagitis; E78.5 Hyperlipidemia, unspecified; I10 Essential (primary) hypertension; M32.9 Systemic lupus erythematosus, unspecified; F43.10 Post-traumatic stress disorder, unspecified; F12.90 Cannabis use, unspecified, uncomplicated; M19.90 Unspecified osteoarthritis, unspecified site; Z79.84 Long term (current) use of oral hypoglycemic drugs; Z79.82 Long term (current) use of aspirin; Z86.73 Personal history of transient ischemic attack (TIA), and cerebral infarction without residual deficits; Z96.652 Presence of left artificial knee joint; Z85.820 Personal history of malignant melanoma of skin; W22.8XXA Striking against or struck by other objects, initial encounter
CPT/HCPCS: 90471; 90715; 99283

== ENCOUNTER → 2021-12-07 | Outpatient (CLI) | payer OTHER ==
--- NOTE | 2021-12-07 11:41 | CT ---
EXAMINATION TYPE: CT angio chest DATE OF EXAM: 12/07/2021 COMPARISON: Prior CT April 14, 2021 and older CTs HISTORY: Thoracic aortic aneurysm CT DLP: 593.9 mGycm. Automated Exposure Control for Dose Reduction was Utilized. CONTRAST: CTA scan of the thorax is performed without and with IV Contrast, patient injected with 100 mL of Iso yamilka 300, aneurysm protocol. 3D reconstructed images are created on an independent workstation and rev iewed. FINDINGS: LUNGS: The lungs are grossly clear, there is no concerning greater than 5 mm parenchymal mass or nodu le identified. There is no pleural effusion or pneumothorax seen. The tracheobronchial tree is pat ent. MEDIASTINUM: There is satisfactory enhancement of the central pulmonary arteries. There are no new g reater than 1 cm hilar or mediastinal lymph nodes. No pericardial effusion is seen. Noncontrast kavon ges show no suspicious hyperdense materials to suggest intramural hematoma. Ascending aorta measures up to 3.9 cm in diameter axial image 71 current study. Mild peripheral calcified plaque extends into 3 great vessels without significant plaque or stenosis. The aorta measures 3.9 cm in diameter at the root coronal image 55. At least moderate Coronary artery calcification is redemonstrated which is not ed marker for underlying coronary artery disease. Heart size is upper limits of normal. No pericardia l effusion is seen. OTHER: Small degree of bilateral gynecomastia is present similar to prior. IMPRESSION: Stable ascending aortic aneurysm up to 3.9 cm on current study
== END | disposition home or self-care (01) ==
LOC: RADCTMAIN 07:49
PROVIDERS: ATTEND Internal Medicine Interventional Cardiology
DX: I71.21 Aneurysm of the ascending aorta, without rupture (principal)
CPT/HCPCS: 82565; 84520; 71275; 36415; Q9967

== ENCOUNTER → 2022-09-30 | Outpatient (CLI) | payer OTHER ==
--- NOTE | 2022-09-30 19:25 | US ---
EXAMINATION TYPE: US carotid duplex BILAT DATE OF EXAM: 09/30/2022 COMPARISON: NONE CLINICAL INDICATION: Male, 72 years old with history of H53.8; pressure behind eyes TECHNIQUE: Carotid duplex ultrasound examination. Indirect Doppler criteria was utilized. FINDINGS: EXAM MEASUREMENTS: RIGHT: Peak Systolic Velocity (PSV) cm/sec ----- Right CCA: 104.0 ----- Right ICA: 94.0 ----- Right ECA: 190.4 ICA/CCA ratio: 0.9 RIGHT: End Diastole cm/sec ----- Right CCA: 27.0 ----- Right ICA: 20.0 ----- Right ECA: 26.8 LEFT: Peak Systolic Velocity (PSV) cm/sec ----- Left CCA: 83.1 ----- Left ICA: 101.7 ----- Left ECA: 141.5 ICA/CCA ratio: 1.2 LEFT: End Diastole cm/sec ----- Left CCA: 23.7 ----- Left ICA: 33.1 ----- Left ECA: 31.7 VERTEBRALS (direction of flow): Right Vertebral: Antegrade Left Vertebral: Antegrade Rhythm: Normal CASEWORK MANAGER NOTES: Mild atherosclerotic IMPRESSION: No hemodynamically significant internal carotid artery stenosis on either side. Criteria for Assigning % of Stenosis / Diameter reduction (Estimation based on the indirect measurements of the internal carotid artery velocities (ICA PSV). 1. Normal (no stenosis)=ICA PSV < 125 cm/s: ratio < 2.0: ICA EDV<40 cm/s. 2. Less than 50% stenosis=ICA PSV < 125 cm/s: ratio < 2.0: ICA EDV<40 cm/s. 3. 50 to 69% stenosis=ICA PSV of 125 to 230 cm/s: ration 2.0 ? 4.0: ICA EDV 40-100 cm/s. 4. Greater than 70% stenosis to near occlusion= ICA PSV > 230 cm/s: ratio > 4.0: ICA EDV > 100 cm/s. 5. Near occlusion= ICA PSV velocities may be low or undetectable: variable ratio and ICA EDV. 6. Total occlusion=unable to detect flow.
== END | disposition home or self-care (01) ==
LOC: RADUSWWP 10:48
DX: H53.8 Other visual disturbances (principal)
CPT/HCPCS: 93880

== ENCOUNTER → 2022-12-22 | Outpatient (CLI) | payer OTHER ==
--- NOTE | 2022-12-22 11:27 | US ---
EXAMINATION TYPE: US kidneys/renal and bladder DATE OF EXAM: 12/22/2022 COMPARISON: NONE CLINICAL INDICATION: Male, 72 years old with history of R94.4 ABN RESULTS OF KIDNEY FUNCTION TESTS; A bnormal labs EXAM MEASUREMENTS: Right Kidney: 9.7x5.0x5.0 cm Left Kidney: 10.9x5.6x4.6 c Right Kidney: 1.7x1.6x1.7cm anechoic area with posterior enhancement noted on lateral/mid kidney Left Kidney: hyperechoic shadowing area in inferior pole: 0.4cm Bladder: wnl, poorly distended Bilateral Jets seen: Yes There is no evidence for hydronephrosis at this point in time. The urinary bladder is anechoic. Gregg ateral ureteral jets are seen. IMPRESSION: 1. Simple cyst right kidney. 2. Small calculus left kidney.
== END | disposition home or self-care (01) ==
LOC: RADUSWWP 10:44
DX: N20.0 Calculus of kidney (principal); N28.1 Cyst of kidney, acquired; R94.4 Abnormal results of kidney function studies
CPT/HCPCS: 76770

== ENCOUNTER 2023-09-08 23:35 | Emergency (ER) | payer OTHER ==
[2023-09-08 23:50] VITALS: RESP 18; TEMP 98
[2023-09-09] MEDS: SODIUM CHLORIDE 0.9% 1,000 ML IV STA (00:38)
[2023-09-09 00:43] LABS: Basophils # (A) 0.1 k/uL (0-0.2); Basophils % (A) 1 %; Eosinophils # (A) 0.3 k/uL (0-0.7); Eosinophils % (A) 4 %; HCT 37.1 % (39.0-53.0); HGB 12.3 gm/dL (13.0-17.5); Lymphocytes # (A) 4.5 k/uL (1.0-4.8); Lymphocytes % (A) 50 %; MCH 32.4 pg (25.0-35.0); MCV 98.2 fL (80.0-100.0); Mean Platelet Volume 8.3; Monocytes # (A) 0.5 k/uL (0-1.0); Monocytes % (A) 5 %; Neutrophils # (A) 3.4 k/uL (1.3-7.7); Neutrophils % (A) 38 %; Platelet Count 174 k/uL (150-450); RBC 3.78 m/uL (4.30-5.90); RDW 12.7 % (11.5-15.5)
--- NOTE | 2023-09-09 00:56 | ED ---
General Adult HPI - General Chief complaint: Alcohol Stated complaint: ETOH Time Seen by Provider: 09/08/23 23:55 Source: patient, EMS, RN notes reviewed, old records reviewed Mode of arrival: EMS Limitations: no limitations - History of Present Illness Initial comments: Is a 72-year-old male who presents emergency department for weakness. Patient had an episode where he was sleepy and weak after drinking alcohol this evening. Was at a September green party. Apparently patient nodded off. Was acting somewhat atypical and he was brought here for further evaluation. Patient states that he feels "off." Has a history of TIAs as well as chronic visual deficits. Legally blind. Denies chest pain or shortness of breath. Denies abdominal pain or nausea or vomiting. Endorses generalized bodyaches. Denies any fevers, chills, cough. Presents for further evaluation at this time. - Related Data Home Medications Medication Instructions Recorded Confirmed Metoprolol Succinate [Toprol XL] 25 mg PO DAILY 03/18/14 05/11/21 Omeprazole [PriLOSEC] 20 mg PO DAILY 03/18/14 05/07/21 Atorvastatin [Lipitor] 40 mg PO HS 01/04/18 05/11/21 Cholecalciferol [Vitamin D3 (25 1,000 unit PO DAILY 01/04/18 05/07/21 Mcg = 1000 Iu)] Cyclobenzaprine [Flexeril] 10 mg PO BID PRN 01/04/18 05/07/21 FLUoxetine HCL [PROzac] 20 mg PO BID 01/04/18 05/11/21 amLODIPine [Norvasc] 5 mg PO BID 01/04/18 05/11/21 Ezetimibe [Zetia] 10 mg PO DAILY 08/17/18 05/11/21 Gabapentin [Neurontin] 100 mg PO QID 08/17/18 05/11/21 Watson-3 Fatty Acids/Fish Oil [Fish 1 each PO DAILY #0 08/17/18 05/07/21 Oil 1,000 mg Softgel] Ubidecarenone [Co Q-10] 200 mg PO DAILY 07/18/19 05/07/21 metFORMIN HCL [Glucophage] 500 mg PO QAM 07/18/19 05/11/21 Docusate Sodium [Dok] 100 mg PO DAILY 08/23/19 05/07/21 Zinc 50 mg PO DAILY 05/07/21 05/07/21 metFORMIN HCL 1,000 mg PO 1700 05/07/21 05/11/21 Previous Rx's Medication Instructions Recorded Losartan [Cozaar] 50 mg PO DAILY #60 tab 08/18/18 Aspirin [Adult Low Dose Aspirin EC] 81 mg PO BID #60 tablet. 08/28/19 Erythromycin Ophth Oint [Romycin 1 applic LEFT EYE DAILY #1 gm 06/26/21 Ophth Oint] Allergies Allergy/AdvReac Type Severity Reaction Status Date / Time No Known Allergies Allergy Verified 06/26/21 14:23 Review of Systems ROS Statement: Those systems with pertinent positive or pertinent negative responses have been documented in the HPI. Review of Systems: CONST: Denies fever EYES: Denies blurry vision ENT: Denies nasal congestion C/V: Denies Chest pain RESP: Denies shortness of breath GI: Denies abdominal pain : Denies dysuria SKIN: Denies rash. MSK: Endorses generalized body aches NEURO: Denies headache ROS Other: All systems not noted in ROS Statement are negative. Past Medical History Past Medical History: Cancer, CVA/TIA, Diabetes Mellitus, Eye Disorder, GERD/Reflux, Hyperlipidemia, Hypertension, Osteoarthritis (OA), Renal Disease, Sleep Apnea/CPAP/BIPAP Additional Past Medical History / Comment(s): Hx melanoma. TIA's - no residual effects. Legally blind, autoimmune retinopathy (retinities pigmentosa) bilateral, macular degeneration. Lupus. RLS. No current cpap use. Varicose vein s. History of Any Multi-Drug Resistant Organisms: None Reported Past Surgical History: Ear Surgery, Joint Replacement, Orthopedic Surgery, Tonsillectomy Additional Past Surgical History / Comment(s): Eye and ear surgeries, ne phrolithiasis, deviated septum sx, left knee meniscus surgery, broke 3 fingers on left hand, total left knee replacement. Past Anesthesia/Blood Transfusion Reactions: No Reported Reaction Past Psychological History: PTSD Smoking Status: Never smoker Past Alcohol Use History: Occasional Past Drug Use History: Marijuana - Past Family History Father Additional Family Medical History / Comment(s): Aneursym. Mother Family Medical History: Vascular Disorder Additional Family Medical History / Comment(s): Peripheral vascular disease. Brother(s) Family Medical History: Cancer Additional Family Medical History / Comment(s): Brain cancer, vision problems. Sister(s) Additional Family Medical History / Comment(s): Knee replacements. General Exam - General Exam Comments Initial Comments: General: Appears in no acute distress. HEAD: Normal with no signs of head trauma. EYES: Legally blind ENT: Hearing grossly intact, normal oropharynx. RESPIRATORY: Clear breath sounds bilaterally. No wheezes, rales, or rhonchi. C/V: Regular rate and rhythm. S1 and S2 auscultated, no edema, peripheral pulses 2+ and intact throughout ABD: Abd is soft, nontender, nondistended EXT: Normal range of motion, no obvious deformity SKIN: No rashes or lesions observed on exposed skin. NEURO: Alert and oriented x 4. Cranial nerves II-XII intact. No focal sensory or strength deficits. NIH of 0 for acute findings. Limitations: no limitations Course Vital Signs 09/08/23 09/09/23 09/09/23 23:38 02:38 04:34 Temperature 98.0 F Pulse Rate 62 79 81 Respiratory 18 18 18 Rate Blood Pressure 112/62 127/76 148/82 O2 Sat by Pulse 95 97 94 L Oximetry Medical Decision Making - Medical Decision Making Was pt. sent in by a medical professional or institution (, PA, GENERAL STUDIES PROGRAM CHAIR, urgent care, hospital, or fci...) When possible be specific @ -No Did you speak to anyone other than the patient for history (EMS, parent, family, police, friend...)? What history was obtained from this source @ -No Did you review nursing and triage notes (agree or disagree)? Why? @ -I reviewed and agree with nursing and triage notes Were old charts reviewed (outside hosp., previous admission, EMS record, old EKG, old radiological studies, urgent care reports/EKG's, fci records)? Report findings @ -No old charts were reviewed Differential Diagnosis (chest pain, altered mental status, abdominal pain women, abdominal pain men, vaginal bleeding, weakness, fever, dyspnea, syncope, headache, dizziness, GI bleed, back pain, seizure, CVA, palpatations, mental health, musculoskeletal)? @ -Differential Weakness: Hypoglycemia, shock, sepsis, hyponatremia, anemia, infection, [place], ETOH, adverse medicine reaction, overdose, stroke, this is not meant to be an all-inclusive list. EKG interpreted by me (3pts min.). @ -As above X-rays interpreted by me (1pt min.). @ -Chest x-ray reveals no obvious acute cardiopulmonary process. CT interpreted by me (1pt min.). @ -CT brain reveals no obvious acute intracranial process. U/S interpreted by me (1pt. min.). @ -None done What testing was considered but not performed or refused? (CT, X-rays, U/S, labs)? Why? @ -None What meds were considered but not given or refused? Why? @ -None Did you discuss the management of the patient with other professionals (professionals i.e. , PA, GENERAL STUDIES PROGRAM CHAIR, lab, RT, psych nurse, psychiatric social worker, duplex trimmer, teacher, booking officer, case finishing machine adjuster)? Give summary @ -No Was smoking cessation discussed for >3mins.? @ -No Was critical care preformed (if so, how long)? @ -No Were there social determinants of health that impacted care today? How? (Homelessness, low income, unemployed, alcoholism, drug addiction, transportation, low edu. Level, literacy, decrease access to med. care, snf, rehab)? @ -No Was there de-escalation of care discussed even if they declined (Discuss DNR or withdrawal of care, Hospice)? DNR status @ -No What co-morbidities impacted this encounter? (DM, HTN, Smoking, COPD, CAD, Cancer, CVA, ARF, Chemo, Hep., AIDS, mental health diagnosis, sleep apnea, morbid obesity)? @ -None Was patient admitted / discharged? Hospital course, mention meds given and route, prescriptions, significant lab abnormalities, going to OR and other pertinent info. @ -Patient presents emergency department for episode of weakness after experiencing it at a green party. Was drinking alcohol at a green party. Currently no acute neurological findings. Will obtain workup. Patient agreement this plan. Vital signs currently within acceptable limits. Patient be given a 1 L fluid bolus. Imaging unremarkable. EKG shows no signs of acute ischemia. Patient's laboratory studies show slight KAYLIN in the setting of CKD. Patient is also hyperglycemic and slightly positive alcohol level 33. On reevaluation, patient's symptoms have resolved. He feels improved. We disc ussed his negative workup. He will be discharged home at this time. They were in agreement this plan. Discharge home with family. I instructed the patient to follow up with their PCP in the next 1-3 days. I explained that the patient should return to the emergency department if they experience any worsening symptoms. Strict return precautions were discussed with the patient. The patient expressed understanding of these instructions. I answered all questions that the patient had. The patient was discharged home in good condition with their prescriptions and follow up information. Undiagnosed new problem with uncertain prognosis? @ -No Drug Therapy requiring intensive monitoring for toxicity (Heparin, Nitro, Insulin, Cardizem)? @ -No Were any procedures done? @ -No Diagnosis/symptom? @ -Alcohol intoxication, weakness Acute, or Chronic, or Acute on Chronic? @ -Acute Uncomplicated (without systemic symptoms) or Complicated (systemic symptoms)? @ -Uncomplicated Side effects of treatment? @ -No Exacerbation, Progression, or Severe Exacerbation? @ -No Poses a threat to life or bodily function? How? (Chest pain, [place], AZ, pneumonia, PE, COPD, DKA, ARF, appy, cholecystitis, CVA, Diverticulitis, Homicidal, Suicidal, threat to staff... and all critical care pts) @ -No - Lab Data Result diagrams: 09/09/23 00:09 09/09/23 00:09 Lab Results 09/09/23 09/09/23 09/09/23 Range/Units 00:09 00:09 00:09 WBC 9.0 (3.8-10.6) k/uL RBC 3.78 L (4.30-5.90) m/uL Hgb 12.3 L (13.0-17.5) gm/dL Hct 37.1 L (39.0-53.0) % MCV 98.2 (80.0-100.0) fL MCH 32.4 (25.0-35.0) pg MCHC 33.0 (31.0-37.0) g/dL RDW 12.7 (11.5-15.5) % Plt Count 174 (150-450) k/uL MPV 8.3 Neutrophils % 38 % Lymphocytes % 50 % Monocytes % 5 % Eosinophils % 4 % Basophils % 1 % Neutrophils # 3.4 (1.3-7.7) k/uL Lymphocytes # 4.5 (1.0-4.8) k/uL Monocytes # 0.5 (0-1.0) k/uL Eosinophils # 0.3 (0-0.7) k/uL Basophils # 0.1 (0-0.2) k/uL PT 10.7 (10.0-12.5) sec INR 1.0 (<1.2) APTT 20.4 L (22.0-30.0) sec Sodium 138 (137-145) mmol/L Potassium 4.0 (3.5-5.1) mmol/L Chloride 108 H (98-107) mmol/L Carbon Dioxide 21 L (22-30) mmol/L Anion Gap 9 mmol/L BUN 22 H (9-20) mg/dL Creatinine 1.65 H (0.66-1.25) mg/dL Est GFR (CKD-EPI)AfAm 47 (>60 ml/min/1.73 sqM) Est GFR (CKD-EPI)NonAf 41 (>60 ml/min/1.73 sqM) Glucose 101 H (74-99) mg/dL Calcium 8.8 (8.4-10.2) mg/dL Magnesium 1.9 (1.6-2.3) mg/dL Total Bilirubin 0.4 (0.2-1.3) mg/dL AST 21 (17-59) U/L ALT 13 (4-49) U/L Alkaline Phosphatase 39 (38-126) U/L Total Protein 6.2 L (6.3-8.2) g/dL Albumin 4.0 (3.5-5.0) g/dL Urine Color Urine Appearance (Clear) Urine pH (5.0-8.0) Ur Specific [place] (1.001-1.035) Urine Protein (Negative) Urine Glucose (UA) (Negative) Urine Ketones (Negative) Urine Blood (Negative) Urine Nitrite (Negative) Urine Bilirubin (Negative) Urine Urobilinogen (<2.0) mg/dL Ur Leukocyte Esterase (Negative) Urine Opiates Screen (NotDetected) Ur Oxycodone Screen (NotDetected) Urine Methadone Screen (NotDetected) Ur Barbiturates Screen (NotDetected) U Tricyclic Antidepress (NotDetected) Ur Phencyclidine Scrn (NotDetected) Ur Amphetamines Screen (NotDetected) U Methamphetamines Scrn (NotDetected) U Benzodiazepines Scrn (NotDetected) Urine Cocaine Screen (NotDetected) U Marijuana (THC) Screen (NotDetected) Serum Alcohol 33 mg/dL Influenza Type A (PCR) (Not Detectd) Influenza Type B (PCR) (Not Detectd) RSV (PCR) (Not Detectd) SARS-CoV-2 (PCR) (Not Detectd) 09/09/23 09/09/23 Range/Units 00:30 02:38 WBC (3.8-10.6) k/uL RBC (4.30-5.90) m/uL Hgb (13.0-17.5) gm/dL Hct (39.0-53.0) % MCV (80.0-100.0) fL MCH (25.0-35.0) pg MCHC (31.0-37.0) g/dL RDW (11.5-15.5) % Plt Count (150-450) k/uL MPV Neutrophils % % Lymphocytes % % Monocytes % % Eosinophils % % Basophils % % Neutrophils # (1.3-7.7) k/uL Lymphocytes # (1.0-4.8) k/uL Monocytes # (0-1.0) k/uL Eosinophils # (0-0.7) k/uL Basophils # (0-0.2) k/uL PT (10.0-12.5) sec INR (<1.2) APTT (22.0-30.0) sec Sodium (137-145) mmol/L Potassium (3.5-5.1) mmol/L Chloride (98-107) mmol/L Carbon Dioxide (22-30) mmol/L Anion Gap mmol/L BUN (9-20) mg/dL Creatinine (0.66-1.25) mg/dL Est GFR (CKD-EPI)AfAm (>60 ml/min/1.73 sqM) Est GFR (CKD-EPI)NonAf (>60 ml/min/1.73 sqM) Glucose (74-99) mg/dL Calcium (8.4-10.2) mg/dL Magnesium (1.6-2.3) mg/dL Total Bilirubin (0.2-1.3) mg/dL AST (17-59) U/L ALT (4-49) U/L Alkaline Phosphatase (38-126) U/L Total Protein (6.3-8.2) g/dL Albumin (3.5-5.0) g/dL Urine Color Colorless Urine Appearance Clear (Clear) Urine pH 5.0 (5.0-8.0) Ur Specific [place] 1.012 (1.001-1.035) Urine Protein Negative (Negative) Urine Glucose (UA) 4+ H (Negative) Urine Ketones Negative (Negative) Urine Blood Negative (Negative) Urine Nitrite Negative (Negative) Urine Bilirubin Negative (Negative) Urine Urobilinogen <2.0 (<2.0) mg/dL Ur Leukocyte Esterase Negative (Negative) Urine Opiates Screen Not Detected (NotDetected) Ur Oxycodone Screen Not Detected (NotDetected) Urine Methadone Screen Not Detected (NotDetected) Ur Barbiturates Screen Not Detected (NotDetected) U Tricyclic Antidepress Not Detected (NotDetected) Ur Phencyclidine Scrn Not Detected (NotDetected) Ur Amphetamines Screen Not Detected (NotDetected) U Methamphetamines Scrn Not Detected (NotDetected) U Benzodiazepines Scrn Not Detected (NotDetected) Urine Cocaine Screen Not Detected (NotDetected) U Marijuana (THC) Screen Not Detected (NotDetected) Serum Alcohol mg/dL Influenza Type A (PCR) Not Detected (Not Detectd) Influenza Type B (PCR) Not Detected (Not Detectd) RSV (PCR) Not Detected (Not Detectd) SARS-CoV-2 (PCR) Not Detected (Not Detectd) - EKG Data -: EKG Interpreted by Me EKG Comments: 12-lead Electrocardiogram Interpretation Note EKG was reviewed and interpreted by myself. 12-lead ECG performed at 0019 is interpreted by me as revealing normal sinus rhythm at a rate of 68 beats per minute. [place] is normal. [place] interval is 159 ms, QRS durations 106 ms, QTc is 425 ms.. There were no ST or T wave abnormalities to suggest myocardial ischemia or injury. R wave progression across the precordium was satisfactory. By my interpretation this EKG is non-diagnostic for acute ischemia. Disposition Clinical Impression: Alcohol intoxication, Weakness Disposition: HOME SELF-CARE Condition: Good Instructions (If sedation given, give patient instructions): Alcohol Intoxicati on (ED) Is patient prescribed a controlled substance at d/c from ED?: No Referrals: [facility],Clinic [Primary Care Provider] - 1-2 days Time of Disposition: 03:43
[2023-09-09 00:57] LABS: ALT 13 U/L (4-49); AST 21 U/L (17-59); African American GFR (CKD) 47 (>60 ml/min/1.73 sqM); Alcohol 33 mg/dL; Alkaline Phosphatase 39 U/L (38-126); Anion Gap 9 mmol/L; Blood Urea Nitrogen 22 mg/dL (9-20); Calcium 8.8 mg/dL (8.4-10.2); Carbon Dioxide 21 mmol/L (22-30); Chloride 108 mmol/L (98-107); Glucose 101 mg/dL (74-99); Magnesium 1.9 mg/dL (1.6-2.3); Non-African American GFR(CKD) 41 (>60 ml/min/1.73 sqM); Sodium 138 mmol/L (137-145); Total Bilirubin 0.4 mg/dL (0.2-1.3); Total Protein 6.2 g/dL (6.3-8.2)
[2023-09-09 00:58] LABS: Prothrombin Time 10.7 sec (10.0-12.5)
[2023-09-09 01:46] LABS: Partial Thromboplastin Time 20.4 sec (22.0-30.0)
--- NOTE | 2023-09-09 02:35 | CT ---
EXAM: CT Head Without Intravenous Contrast CLINICAL HISTORY: weakness TECHNIQUE: Axial computed tomography images of the head/brain without intravenous contrast. CTDI is 49.1 mGy and DLP is 1239 mGy-cm. This CT exam was performed using one or more of the following dose reduction techniques: automated exposure control, adjustment of the mA and/or kV according to patient size, and/or use of iterative reconstruction technique. COMPARISON: Unenhanced CT head dated 08/17/2018 FINDINGS: Brain: There are a few areas of decreased attenuation in the deep cerebral white matter consistent with mild small vessel ischemic/degenerative changes, not significantly progressed from the previous examination. The cerebral and cerebellar sulci are mildly prominent consistent with mild brain atrophy. No hemorrhage. No significant mass effect. No evidence for cortical infarct. Ventricles: Unremarkable. No ventriculomegaly. Bones/joints: Unremarkable. No acute fracture. Soft tissues: Unremarkable. Vasculature: Atherosclerotic disease. Sinuses: Unremarkable as visualized. No acute sinusitis. Mastoid air cells: Right mastoidectomy is stable. Scattered left mastoid effusions are similar to the previous examination. IMPRESSION: No acute intracranial process or significant alteration from the prior examination.
--- NOTE | 2023-09-09 02:57 | XR ---
EXAM: XR Chest, 2 Views CLINICAL HISTORY: Weakness TECHNIQUE: Frontal and lateral views of the chest. COMPARISON: Chest 2 views dated 08/17/2018 FINDINGS: Lungs: No lobar consolidation. Perihilar subsegmental curvilinear opacities, most notable in the infrahilar regions bilaterally. The lungs are otherwise well-aerated. The pulmonary vasculature appears somewhat equalized. No radiographic evidence for florid CHF. Pleural space: Unremarkable. No pneumothorax. No large pleural effusion. Heart: The cardiac silhouette is within normal limits, accounting for AP technique. Mediastinum: Unremarkable. No significant abnormality identified. The trachea is midline. Bones/joints: Unremarkable. No acute fracture. IMPRESSION: No lobar consolidation. Perihilar subsegmental curvilinear opacities, most notable in the infrahilar regions bilaterally. This may represent atelectasis, asymmetric edema or subtle infection. No pleural effusion or pneumothorax.
[2023-09-09 03:00] LABS: Appearance,Urine Clear (Clear); Bilirubin,Urine Negative (Negative); Blood,Urine Negative (Negative); Color,Urine Colorless; Glucose,Urine (UA) 4+ (Negative); Ketones,Urine Negative (Negative); Leukocyte Esterase,Urine Negative (Negative); Nitrite,Urine Negative (Negative); Protein,Urine Negative (Negative); Specific Gravity,Urine 1.012 (1.001-1.035); Urobilinogen,Urine <2.0 mg/dL (<2.0)
[2023-09-09 03:22] LABS: Amphetamine Screen,Urine Not Detected (NotDetected); Barbiturate Screen,Urine Not Detected (NotDetected); Benzodiazepines Screen,Urine Not Detected (NotDetected); Cocaine Screen,Urine Not Detected (NotDetected); Methadone Screen, Urine Not Detected (NotDetected); Opiate Screen,Urine Not Detected (NotDetected); Oxycodone Screen, Urine Not Detected (NotDetected); Phencyclidine Screen,Urine Not Detected (NotDetected); Tricyclic Antidepressant,Urine Not Detected (NotDetected); Urn Cannabinoid Scrn Not Detected (NotDetected)
[2023-09-09 04:35] VITALS: BP 148/82; PULSE 81
== END 2023-09-09 04:35 | disposition home or self-care (01) ==
LOC: EC 23:35
DX: F10.129 Alcohol abuse with intoxication, unspecified (principal); R53.1 Weakness
CPT/HCPCS: 36415; 70450; 71046; 80053; 80306; 80320; 81003; 83735; 85025; 85610; 85730; 87636; 93005; 96360; 96361; 99285

== ENCOUNTER → 2023-09-27 | Outpatient (CLI) | payer OTHER ==
--- NOTE | 2023-09-27 17:00 | US ---
EXAMINATION TYPE: US carotid duplex BILAT DATE OF EXAM: 09/27/2023 COMPARISON: US 09/30/2022 CLINICAL INDICATION: Male, 73 years old with history of G45.9 TRANSIENT CEREBRAL ISCHEMIC ATTACK; Hx TIA. Diabetes, hypertension, hyperlipidemia. TECHNIQUE: Carotid duplex ultrasound examination. Indirect Doppler criteria was utilized. FINDINGS: EXAM MEASUREMENTS: RIGHT: Peak Systolic Velocity (PSV) cm/sec ----- Right CCA: 90.3 ----- Right ICA: 89.7 ----- Right ECA: 143 ICA/CCA ratio: 0.99 RIGHT: End Diastole cm/sec ----- Right CCA: 19.0 ----- Right ICA: 24.4 ----- Right ECA: 12.0 LEFT: Peak Systolic Velocity (PSV) cm/sec ----- Left CCA: 85.7 ----- Left ICA: 85.5 ----- Left ECA: 89.1 ICA/CCA ratio: 1.0 LEFT: End Diastole cm/sec ----- Left CCA: 18.1 ----- Left ICA: 28.9 ----- Left ECA: 9.5 VERTEBRALS (direction of flow): Right Vertebral: Unable to visualize Left Vertebral: Antegrade Rhythm: Normal SUPERVISOR INTERMEDIATES NOTES: *Elevated velocity within right ECA. Minimal plaque seen within bilateral bulbs. IMPRESSION: No evidence of dynamically significant stenosis Criteria for Assigning % of Stenosis / Diameter reduction (Estimation based on the indirect measurements of the internal carotid artery velocities (ICA PSV). 1. Normal (no stenosis)=ICA PSV < 125 cm/s: ratio < 2.0: ICA EDV<40 cm/s. 2. Less than 50% stenosis=ICA PSV < 125 cm/s: ratio < 2.0: ICA EDV<40 cm/s. 3. 50 to 69% stenosis=ICA PSV of 125 to 230 cm/s: ration 2.0 ? 4.0: ICA EDV 40-100 cm/s. 4. Greater than 70% stenosis to near occlusion= ICA PSV > 230 cm/s: ratio > 4.0: ICA EDV > 100 cm/s. 5. Near occlusion= ICA PSV velocities may be low or undetectable: variable ratio and ICA EDV. 6. Total occlusion=unable to detect flow.
== END | disposition home or self-care (01) ==
LOC: RADUSWWP 14:58
PROVIDERS: ATTEND Family Medicine
DX: G45.9 Transient cerebral ischemic attack, unspecified (principal); E11.9 Type 2 diabetes mellitus without complications; E78.5 Hyperlipidemia, unspecified; I10 Essential (primary) hypertension; Z86.73 Personal history of transient ischemic attack (TIA), and cerebral infarction without residual deficits
CPT/HCPCS: 93880

== ENCOUNTER → 2024-03-27 | Outpatient (CLI) | payer OTHER ==
--- NOTE | 2024-03-27 14:28 | CT ---
EXAMINATION TYPE: CT chest wo con DATE OF EXAM: 03/27/2024 1:14 PM COMPARISON: None. CLINICAL INDICATION: Male, 73 years old with history of J84.9, interstitial pulmonary disease, Lung c ancer screening, History of tobacco use. TECHNIQUE: Axial images were obtained at 1 mm thick sections at 10 mm intervals. This will limit po rtions of the examination which may not be visualized within the [id number]. Images were obtained in the prone and supine views. Contrast used: mL of , (none if empty) Oral contrast used: (none if empty) CT DLP: 1122.3 mGycm, Automated exposure control for dose reduction was used. FINDINGS: Portion of the thyroid visualized is normal. No suspicious lung nodules or focal infiltrat es are present. Minimal increased lung markings are in the azygos esophageal recess. This improves in the prone position suggesting some subsegmental atelectasis Suspicious underlying mass or other rodriguez ge is not evident at this location. No enlarged mediastinal or hilar adenopathy is evident. The ascending aorta diameter at the level o f the main pulmonary artery is 4.1 cm. The main pulmonary artery diameter at the bifurcation is 3.[address] sections are obtained through the upper abdomen. Abdomen is essentially unremarkable. IMPRESSION: 1. There may be some minimal subsegmental atelectasis in the azygos esophageal recess. 2. No suspicious chronic changes identified [facility], , 03/27/2024 2:25 PM
== END | disposition home or self-care (01) ==
LOC: RADCTMAIN 12:38
PROVIDERS: ATTEND Internal Medicine Critical Care Medicine
DX: Z12.2 Encounter for screening for malignant neoplasm of respiratory organs (principal); J84.9 Interstitial pulmonary disease, unspecified; Z87.891 Personal history of nicotine dependence
CPT/HCPCS: 71250

== ENCOUNTER → 2024-03-27 | Outpatient (CLI) | payer OTHER | END | disposition home or self-care (01) | LOC: LABWHC1 13:17 | PROVIDERS: ATTEND Psychiatry & Neurology Neurology | DX: G31.84 Mild cognitive impairment of uncertain or unknown etiology (principal) | CPT/HCPCS: 36415; 82607; 84443 ==

== ENCOUNTER → 2024-04-05 | Outpatient (CLI) | payer OTHER ==
--- NOTE | 2024-04-05 11:56 | FL ---
EXAMINATION TYPE: FL barium swallow DATE OF EXAM: 04/05/2024 11:51 AM COMPARISON: None CLINICAL INDICATION:Male, 73 years old with history of R13.19 dysphagia; PH, TECHNIQUE: The procedure was explained and patient history elicited. All patient questions were ans wered prior to start of procedure. Multiple spot fluoroscopic images of the esophagus were obtained a fter the oral ingestion of effervescent crystals and liquid barium as the contrast agent. Fluoroscopic time:27 sec Fluoroscopic images:0 Radiographs taken: 106 DAP: 1447.87 mGym2 FINDINGS: The esophagus demonstrates normal primary and secondary peristalsis. The esophageal mucosa is smooth without evidence of focal stricture, ulceration, or abnormal outpouching. No gastroesophageal reflu x disease was identified. Large osteophytes impress upon the posterior esophagus at the level of C4-C 5 and C6. Contrast was able to flow past these lesions without trouble. IMPRESSION: 1. Normal esophagram. 2. Large osteophytes in the cervical spine which impresses upon the posterior esophagus. No obstructi on of flow was identified. [facility], , 04/05/2024 11:53 AM
== END | disposition home or self-care (01) ==
LOC: RADFLMAIN 10:06
PROVIDERS: ATTEND Psychiatry & Neurology Neurology
DX: R13.19 Other dysphagia (principal); M25.78 Osteophyte, vertebrae; G47.33 Obstructive sleep apnea (adult) (pediatric); G31.84 Mild cognitive impairment of uncertain or unknown etiology
CPT/HCPCS: 74220

== ENCOUNTER → 2024-04-06 | Outpatient (CLI) | payer OTHER ==
--- NOTE | 2024-04-06 14:17 | MR ---
INDICATION: Patient age:Male; 73 years old; Reason for study: G31.84 MILD COGNITIVE IMPAIRMENT; PHH. COMPARISON: CT brain 08/17/2018, 02/22/2018, 01/04/2018, MR brain 01/06/2018. TECHNIQUE: Multi planar, multi sequence imaging was performed through the brain without administratio n of intravenous contrast. FINDINGS: The morrison-white junctions, ventricular system, basal cisterns appear unremarkable within limits of cer ebral volume loss. Age-appropriate diffuse cerebral volume loss. Diffusion-weighted imaging shows no evidence of restricted diffusion to suggest acute/subacute infarct. Intracranial arterial flow voids are maintained. Midline structures show no abnormality. Slight progression of patchy and confluent ar eas of high T2/FLAIR signal intensity are seen within the periventricular and subcortical white matte r. The susceptibility weighted images do not reveal any evidence for micro-hemorrhage. The bone marrow signal is within normal limits. The paranasal sinuses are unremarkable. Bilateral T2 hyperintense mastoid effusions. Bilateral aphakia. IMPRESSION: 1. No evidence of intracranial mass or acute/subacute infarct. 2. Similar diffuse cerebral atrophy with slight progression of nonspecific white matter changes, like ly related to small vessel ischemic disease. 3. Bilateral mastoid effusions redemonstrated. [facility], , 04/06/2024 2:15 PM
== END | disposition home or self-care (01) ==
LOC: RADMRIMAIN 12:59
PROVIDERS: ATTEND Psychiatry & Neurology Neurology
DX: G31.84 Mild cognitive impairment of uncertain or unknown etiology (principal); R13.19 Other dysphagia; G47.33 Obstructive sleep apnea (adult) (pediatric); H74.8X3 Other specified disorders of middle ear and mastoid, bilateral; G31.89 Other specified degenerative diseases of nervous system
CPT/HCPCS: 70551

== ENCOUNTER → 2024-05-22 | Outpatient (CLI) | payer OTHER ==
[2024-05-22 14:17] VITALS: BP 147/85; PULSE 58; RESP 16; TEMP 98.2
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
== END ==
LOC: 3 N SLEEP 13:28
PROVIDERS: ATTEND Internal Medicine Critical Care Medicine
DX: E11.9 Type 2 diabetes mellitus without complications (principal); N18.30 Chronic kidney disease, stage 3 unspecified; I12.9 Hypertensive chronic kidney disease with stage 1 through stage 4 chronic kidney disease, or unspecified chronic kidney disease; G47.33 Obstructive sleep apnea (adult) (pediatric); M32.9 Systemic lupus erythematosus, unspecified; G62.9 Polyneuropathy, unspecified; E78.5 Hyperlipidemia, unspecified; F43.10 Post-traumatic stress disorder, unspecified; F32.A Depression, unspecified; M19.09 Primary osteoarthritis, other specified site; N20.0 Calculus of kidney; Z86.73 Personal history of transient ischemic attack (TIA), and cerebral infarction without residual deficits; F12.90 Cannabis use, unspecified, uncomplicated
CPT/HCPCS: 99211

== ENCOUNTER 2024-06-26 19:13 | Outpatient (CLI) | payer OTHER ==
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
== END 2024-06-27 06:15 | disposition home or self-care (01) ==
LOC: 3 N SLEEP 19:13
PROVIDERS: ATTEND Internal Medicine Critical Care Medicine
DX: G47.33 Obstructive sleep apnea (adult) (pediatric) (principal); C43.9 Malignant melanoma of skin, unspecified; F32.A Depression, unspecified; F43.10 Post-traumatic stress disorder, unspecified; H54.8 Legal blindness, as defined in USA; H35.52 Pigmentary retinal dystrophy; M32.9 Systemic lupus erythematosus, unspecified; G62.9 Polyneuropathy, unspecified; E78.5 Hyperlipidemia, unspecified; M19.90 Unspecified osteoarthritis, unspecified site; I12.9 Hypertensive chronic kidney disease with stage 1 through stage 4 chronic kidney disease, or unspecified chronic kidney disease; E11.22 Type 2 diabetes mellitus with diabetic chronic kidney disease; N18.30 Chronic kidney disease, stage 3 unspecified; R53.82 Chronic fatigue, unspecified; N20.0 Calculus of kidney; F12.90 Cannabis use, unspecified, uncomplicated; Z86.73 Personal history of transient ischemic attack (TIA), and cerebral infarction without residual deficits
CPT/HCPCS: 95810